=== PATIENT | male | born 1950 | race Caucasian/White ===

== ENCOUNTER 2017-07-15 07:00 | Inpatient (IN) ==
--- NOTE | 2017-07-11 10:20 | Cardiothoracic History & Phys ---
History of Present Illness Chief complaint: Shortness of breath and chest discomfort History of present illness: Mr. Crews is a 67 year old male who is a patient of Dr. Cochran who has been followed with cardiac myopathy manifesting primarily and symptoms of shortness of breath and chest discomfort. Patient underwent cardiac catheterization about 2 weeks ago demonstrating markedly impaired left ventricular function and severe coronary artery disease. Patient was referred for bypass surgery. He is to be admitted for that purpose. Past medical history significant for history of anxiety and insomnia and hypertension. He also has a surgical history of bilateral cataracts and some unspecified throat surgery in the past. His family history is significant in that his father has history of hypertension and coronary disease and mother also with a history of hypertension. Brother has history of hypertension and myocardial infarction in his past. Patient is never smoked. He takes a moderate amount of alcohol. Physical examination patient is well-developed well-nourished white male in no acute distress. Examination of head eyes ears nose and throat show the pupils are equal and react to light and extraocular motions are intact. Examination of the neck shows no masses or thyromegaly or bruits. Examination chest is clear to percussion and auscultation. Examination heart shows regular sinus rhythm and no murmurs. Examination of the abdomen is soft and nontender and there are no masses or organomegaly. Examination of the extremities shows no cyanosis or edema. Neurological examination is grossly within normal limits. Assessment: Severe coronary artery disease and severe cardiomyopathy. Plan: Coronary bypass surgery 07/16/2017. Home Medications Medication Instructions Recorded Confirmed Type Acetaminophen Tab [Tylenol Tab] 325 mg PO BID PRN 07/04/17 07/04/17 History Amitriptyline HCl 50 mg PO BEDTIME 07/04/17 07/04/17 History Aspirin Chew Tab 324 mg PO DAILY #100 tablet 07/04/17 Rx Calcium Carb/Mag Ox/Zinc Sulf 1 tablet PO BID 07/04/17 07/04/17 History [Icdosox-Oxuzskqfe-Kyoh Tablet] Carvedilol [Coreg] 25 mg PO BID 07/04/17 07/04/17 History Cholecalciferol (Vitamin D3) 1 capsule PO BID 07/04/17 07/04/17 History [Vitamin D3] Fluticasone/Vilanterol [Breo 1 puff INH DAILY PRN 07/04/17 07/04/17 History Ellipta 100-25 Mcg INH] Furosemide Tab [Lasix Tab] 40 mg PO DAILY 07/04/17 07/04/17 History Gabapentin Cap/Tab [Neurontin 400 mg PO TID 07/04/17 07/04/17 History Cap/Tab] Garlic 2,000 mg PO BID 07/04/17 07/04/17 History Glucosamine/Chondroitin Sulf A 1 each PO BID 07/04/17 07/04/17 History [Glucosamine-Chondroitin Cap] Leg Cramps 1 caplet PO DIRECTED PRN 07/04/17 07/04/17 History Lutein 40 mg PO DAILY 07/04/17 07/04/17 History Montelukast Tab [Singulair Tab] 10 mg PO DAILY 07/04/17 07/04/17 History [place]-3/Dha/Epa/Fish Oil [Fish Oil 2 each PO BID 07/04/17 07/04/17 History 1,000 mg Softgel] Sacubitril/Valsartan [Entresto 24 0.5 tablet PO BEDTIME 07/04/17 07/04/17 History mg-26 mg Tablet] Saw [place] Fruit [Saw [place]] 2 mg PO BID 07/04/17 07/04/17 History Spironolactone [Aldactone] 12.5 mg PO DAILY 07/04/17 07/04/17 History Tizanidine HCl [Zanaflex] 2 mg PO BEDTIME 07/04/17 07/04/17 History Tramadol HCl [Tramadol Tab] 50 mg PO BID 07/04/17 07/04/17 History Vitamin B Complex 1 capsule PO DAILY 07/04/17 07/04/17 History Zolpidem Tartrate [Ambien] 10 mg PO DAILY 07/04/17 07/04/17 History amLODIPine [Norvasc] 5 mg PO DAILY 07/04/17 07/04/17 History Allergies Allergy/AdvReac Type Severity Reaction Status Date / Time No Known Allergies Allergy Verified 07/04/17 14:00 Medical,Surgical,& Family Hx - Medical History Neurology: No history of: Seizures - Social History Smoking Status: Never smoker
[~2017-07-15 07:00] MED LIST: ACETAMINOPHEN 325 MG TABLET PO PRN; CRAMPS PO PRN; DEXTROSE 50% 25 GM/50 ML VIAL IV PRN; GARLIC 2000 MG PO SCH; GLUCAGON 1 MG VIAL IM PRN; GLUCOSAMINE PO SCH; LUTEIN 40 MG PO SCH; NON-FORMULARY MEDICATION (Fluticasone/Vilanterol [Breo Ellipta 100-25 Mcg Inh] 1 PUFF) INH PRN; SAW PALMETTO FRUIT PO SCH; [UNRECOGNIZED DRUG - OTHER] PO SCH
[2017-07-15 09:47] LABS: Basophils # 0.2 10*3/uL (0.0-0.2); Basophils % 2.3 % (0.0-0.8); Eosinophils # 0.5 10*3/uL (0.0-0.87); Eosinophils % 6.4 % (0.00-10.9); Hematocrit 56.1 VOL% (42.0-52.0); Hemoglobin 19.6 GM/DL (14.0-18.0); Immature Granulocytes % 0.5 %; Immature Granulocytes Absolute 0.04 #; Lymphocytes % 25.2 % (21.2-54.2); Mean Corpuscular HGB Conc 34.9 GM/DL (32-36); Mean Corpuscular Hemoglobin 29 PG (27-34); Mean Corpuscular Volume 82.6 FL (87-102); Mean Platelet Volume 9.7 FL (9.6-12.0); Monocytes # 0.8 10*3/uL (0.11-0.8); Monocytes % 10.5 % (1.7-12.7); Neutrophils # 4.4 10*3/uL (1.4-7.4); Neutrophils % 55.1 % (38.7-73.9); Platelet Count 248 T/CUMM (130-400); Red Blood Count 6.79 MC/CUMM (3.8-5.5); Red Cell Distribution Width 14.1 % (9.3-17.3); White Blood Count 7.9 T/CUMM (4-12)
[2017-07-15 10:19] LABS: Albumin 3.7 G/DL (3.4-5.0); Bilirubin,Total 0.6 MG/DL (0.2-1.0); Calcium 9.5 MG/DL (8.5-10.1); Potassium 4.1 MMOL/L (3.5-5.1); Total Protein 7.3 G/DL (6.4-8.3)
[2017-07-15] MEDS ORDERED: CEFUROXIME INJ 1,500 MG in SODIUM CHLORIDE 0.9% 100 ML IV ONE (10:20)
[2017-07-15 10:31] LABS: ABG HCO3 27.9 MMOL/L (20-26); ABG Oxygen Saturation 95.3 % (95-100); ABG PCO2 42.1 MM HG (35-48); ABG PH 7.441 (7.35-7.45); ABG TCO2 22.9 MMOL/L (23-27); Allen Test Positive; Pt O2 Delivery Device Room Air
[2017-07-15] MEDS: CARVEDILOL 25 MG TABLET PO SCH ×4 (10:33→21:57)
[2017-07-15] MEDS: MULTIVITAMIN (BEROCCA) TABLET PO SCH ×3 (10:33→15:11)
[2017-07-15] MEDS: SPIRONOLACTONE 25 MG TABLET PO SCH ×3 (10:33→15:10)
[2017-07-15] MEDS: FUROSEMIDE 40 MG TABLET PO SCH ×3 (10:33→15:13)
[2017-07-15] MEDS: OMEGA 3 ACID ETHYL ESTERS 1 GM CAPSULE PO SCH ×4 (10:33→21:54)
[2017-07-15] MEDS: ASPIRIN CHEW 81 MG TABLET PO SCH ×3 (10:33→15:11)
[2017-07-15] MEDS: amLODIPine 5 MG TABLET PO SCH ×3 (10:34→15:14)
[2017-07-15] MEDS: MONTELUKAST 10 MG TABLET PO SCH ×3 (10:34→15:15)
[2017-07-15] MEDS: ZALEPLON 5 MG CAPSULE PO SCH ×3 (10:34→15:16)
[2017-07-15] MEDS: GABAPENTIN 400 MG CAPSULE PO SCH ×6 (10:34→21:57)
[2017-07-15] MEDS: traMADol 50 MG TABLET PO SCH ×5 (10:34→21:54)
[2017-07-15] MEDS: CHOLECALCIFEROL 1,000 UNIT TABLET PO SCH ×5 (10:35→21:56)
[2017-07-15] MEDS: CHLORHEXIDINE 0.12% ORAL RINSE 60 ML BOTTLE SWISH/SPIT SCH ×5 (10:40→21:58)
[2017-07-15] MEDS: tiZANidine 4 MG TABLET PO SCH ×3 (10:53→21:57)
[2017-07-15] MEDS: AMITRIPTYLINE 50 MG TABLET PO SCH ×3 (10:53→21:57)
[2017-07-15] MEDS: SACUBITRIL/VALSARTAN 49-51 MG TABLET PO SCH ×3 (10:53→21:54)
--- NOTE | 2017-07-15 11:02 | Order Completion Report ---
See report scanned to EMR
--- NOTE | 2017-07-15 12:20 | XRay Report ---
2 view chest Indication: Chest pain, coronary artery disease Comparison: Not available Findings: Cardiomediastinal contours are normal. Lungs are clear bilaterally. . No acute osseous abnormalities. Visualized upper abdomen demonstrates no acute pathology. Impression: Normal chest PROCEDURE INTERPRETED AT [facility] DEPARTMENT OF RADIOLOGY Final Report Signed by: Blade Clifford MD
[2017-07-15] MEDS: SODIUM CHLORIDE 0.9% 1,000 ML IV SCH ×3 (15:17→21:57)
[2017-07-15] MEDS: CHLORHEXIDINE 4% SOLN 118 ML BOTTLE TOP SCH ×2 (15:19→21:58)
[2017-07-15] MEDS ORDERED: ZOLPIDEM 5 MG TABLET PO PRN (21:12)
[2017-07-16] MEDS ORDERED: LORazepam 1 MG TABLET PO ONE (05:30)
[2017-07-16] MEDS ORDERED: PANTOPRAZOLE 40 MG VIAL IV ONE (05:30)
[2017-07-16] MEDS: CHLORHEXIDINE 0.12% ORAL RINSE 60 ML BOTTLE SWISH/SPIT SCH ×2 (05:37→20:43)
[2017-07-16] MEDS: CHLORHEXIDINE 4% SOLN 118 ML BOTTLE TOP SCH (05:37)
[2017-07-16] MEDS ORDERED: PAPAVERINE 60 MG/2 ML VIAL ONE (05:46)
[2017-07-16] MEDS ORDERED: VANCOMYCIN 1,000 MG VIAL ONE (05:47)
[2017-07-16] MEDS: CARVEDILOL 25 MG TABLET PO SCH (06:04)
[2017-07-16] MEDS: amLODIPine 5 MG TABLET PO SCH (06:04)
[2017-07-16] MEDS ORDERED: TRANEXAMIC ACID 1,000 MG/10 ML VIAL IV ONE (06:05)
[2017-07-16 07:33] LABS: ABG Base Excess 1.2 MMOL/L (-2.5-2.5); ABG HCO3 25.5 MMOL/L (20-26); ABG Oxygen Saturation 99.6 % (95-100); ABG PCO2 43.8 MM HG (35-48); ABG PH 7.392 (7.35-7.45); ABG TCO2 21.7 MMOL/L (23-27); Glucose Heart Surgery 117 MG/DL (74-106); Hematocrit Heart Surgery 55.2 PERCENT (42-52); Hemoglobin Heart Surgery 18.1 G/DL (14.0-18.0); Ionized Calcium Arterial 1.16 MMOL/L (1.21-1.46); PCO2 Patient Temp Arterial 43.8 MMHG; PH Patient Temp Arterial 7.392; Patient Temperature 37 CELCIUS; Potassium Heart/CVR 3.9 MMOL/L (3.5-5.1); Sodium Heart/CVR 137 MMOL/L (135-145)
[2017-07-16] MEDS ORDERED: CALCIUM CHLORIDE 1,000 MG/10 ML SYRINGE IV ONE (07:47)
[2017-07-16] MEDS ORDERED: NITROPRUSSIDE 50 MG/2 ML VIAL ONE (07:47)
[2017-07-16] MEDS ORDERED: PHENYLEPHRINE DRIP 40 MG/250 ML PREMIX IV ONE (07:47)
[2017-07-16] MEDS ORDERED: SODIUM BICARBONATE 50 MEQ/50 ML SYRINGE IV ONE ×2 (07:48→09:51)
[2017-07-16] MEDS ORDERED: ALBUMIN 5% 12.5 GM/250 ML VIAL IV ONE (07:48)
[2017-07-16] MEDS ORDERED: POTASSIUM CHLORIDE RIDER 100 ML IV ONE (07:48)
[2017-07-16 08:16] LABS: Apearance,Urine CLEAR (Clear); Bilirubin,Urine Negative (Negative); Blood, Urine Negative (Negative); Glucose,Urine (UA) Negative (Negative); Ketones,Urine Negative (Negative); Nitrite,Urine Negative (Negative); Protein,Urine Negative; RBC,Urine <1 /HPF (0-4); Urine Color Yellow (Yellow); Urine Urobilinogen < 2.0 EU/DL (0.2-1.0); WBC,Urine 1 /HPF (0-6)
[2017-07-16 08:45] LABS: Hematocrit Heart Surgery 37.2 PERCENT (42-52); Hemoglobin Heart Surgery 12.1 G/DL (14.0-18.0); PCO2 Patient Temp Venous 37.1 MM HG; PH Patient Temp Venous 7.449; PO2 Patient Temp Venous 38.7 MM HG; Potassium Heart/CVR 4.6 MMOL/L (3.5-5.1); VBG Base Excess 1.9 MEQ/L (0-4); VBG HCO3 25.7 MEQ/L (24-28); VBG Oxygen Saturation 82.3 %; VBG PCO2 42.9 MMHG (41-51); VBG PH 7.405; VBG PO2 47.6 MMHG (17-40)
[2017-07-16] MEDS ORDERED: SUFentanil 250 MCG/5 ML AMP ONE (08:58)
[2017-07-16] MEDS ORDERED: CALCIUM CHLORIDE 1,000 MG/10 ML VIAL IV ONE (08:58)
[2017-07-16] MEDS ORDERED: DOBUTamine 500 MG/250 ML PREMIX IV ONE ×2 (08:58→10:19)
[2017-07-16] MEDS ORDERED: HEPARIN/NACL 0.9% 2 UNITS/ML 500 ML IV ONE (08:58)
[2017-07-16] MEDS ORDERED: PHENYLEPHRINE DRIP 20 MG/250 ML PREMIX IV ONE ×2 (08:58→09:51)
[2017-07-16] MEDS ORDERED: SODIUM CHLORIDE 0.9% 1,000 ML IV ONE (08:59)
[2017-07-16] MEDS ORDERED: MIDAZOLAM 10 MG/2 ML VIAL ONE ×2 (08:59→10:52)
[2017-07-16] MEDS ORDERED: NITROGLYCERIN DRIP 50 MG/250 ML BOTTLE IV ONE (08:59)
[2017-07-16] MEDS ORDERED: SODIUM CHLORIDE 0.9% 250 ML IV ONE (08:59)
[2017-07-16] MEDS ORDERED: ePHEDrine 50 MG/ML AMP ONE (08:59)
[2017-07-16] MEDS ORDERED: SODIUM CHLORIDE 0.9% 100 ML IV ONE (08:59)
[2017-07-16] MEDS ORDERED: ETOMIDATE 20 MG/10 ML VIAL IV ONE (08:59)
[2017-07-16] MEDS ORDERED: LACTATED RINGERS 1,000 ML IV ONE (08:59)
[2017-07-16] MEDS ORDERED: VECURONIUM 10 MG VIAL IV ONE (09:00)
[2017-07-16 09:16] LABS: Hematocrit Heart Surgery 40.8 PERCENT (42-52); Hemoglobin Heart Surgery 13.3 G/DL (14.0-18.0); PCO2 Patient Temp Venous 38.7 MM HG; PH Patient Temp Venous 7.445; PO2 Patient Temp Venous 45.8 MM HG; Potassium Heart/CVR 4.4 MMOL/L (3.5-5.1); VBG Base Excess 2.5 MEQ/L (0-4); VBG HCO3 26.3 MEQ/L (24-28); VBG Oxygen Saturation 86.3 %; VBG PCO2 42.6 MMHG (41-51); VBG PH 7.416; VBG PO2 52.5 MMHG (17-40)
[2017-07-16] MEDS ORDERED: ALBUMIN 25% 25 GM/100 ML VIAL IV ONE (09:51)
[2017-07-16] MEDS ORDERED: DEXTROSE 5% KCL 20 MEQ 20 MEQ/1,000 ML BAG IV ONE (09:51)
[2017-07-16] MEDS ORDERED: PROTAMINE SULFATE 250 MG/25 ML VIAL IV ONE (09:51)
[2017-07-16] MEDS ORDERED: MAGNESIUM SULFATE 1 GM/2 ML VIAL ONE (09:51)
[2017-07-16] MEDS ORDERED: HEPARIN 10,000 UNIT/10 ML VIAL ONE (09:52)
[2017-07-16] MEDS ORDERED: MANNITOL 12.5 GM/50 ML VIAL IV ONE (09:52)
[2017-07-16] MEDS ORDERED: FUROSEMIDE 20 MG/2 ML VIAL ONE (09:52)
[2017-07-16] MEDS ORDERED: methylPREDNISolone SOD SUC 1,000 MG/8 ML VIAL ONE (09:52)
[2017-07-16 10:05] LABS: ABG Base Excess 0.6 MMOL/L (-2.5-2.5); ABG HCO3 24.9 MMOL/L (20-26); ABG Oxygen Saturation 99.3 % (95-100); ABG PCO2 38.7 MM HG (35-48); ABG PH 7.417 (7.35-7.45); ABG TCO2 21.4 MMOL/L (23-27); Glucose Heart Surgery 196 MG/DL (74-106); Hematocrit Heart Surgery 42.6 PERCENT (42-52); Hemoglobin Heart Surgery 13.9 G/DL (14.0-18.0); Ionized Calcium Arterial 1.18 MMOL/L (1.21-1.46); PCO2 Patient Temp Arterial 38.7 MMHG; PH Patient Temp Arterial 7.417; Patient Temperature 37 CELCIUS; Potassium Heart/CVR 3.7 MMOL/L (3.5-5.1); Sodium Heart/CVR 134 MMOL/L (135-145)
--- NOTE | 2017-07-16 10:49 | Operative Note ---
Date of procedure: 07/16/17 Pre-op diagnosis: Coronary artery disease Post-op diagnosis: same Procedure: Procedure: Coronary bypass grafting 2 the left internal mammary graft to the anterior descending coronary artery and saphenous vein graft to the obtuse marginal coronary artery. Findings: Patient is a 67-year-old man presented with shortness of breath and chest discomfort. The catheterization demonstrating critical coronary disease with marked left ventricular dysfunction. The time of surgery there was noted to be left ventricular dysfunction as previously noted and grafts were placed to the anterior descending coronary artery using the left internal mammary artery and a saphenous vein graft was placed to the obtuse marginal coronary artery. Both vessels were of adequate size and free of disease at the site of anastomosis. Patient tolerated procedure well and was returned to recovery in satisfactory condition. The patient was brought to the operating room placed on the operating table in supine position. After satisfactory induction of general anesthesia the chest abdomen and legs were prepped and draped in sterile fashion. Greater saphenous vein was harvested from the left lower leg and prepared as an arterial graft. Incision in the leg was closed with 3-0 subcutaneous Monocryl and skin brian. Standard sternotomy incision was made and the sternum was divided and the heart suspended in a pericardial cradle. Left internal mammary artery was dissected free and prepared as an arterial graft. Patient was prepared for cardiopulmonary bypass with systemic heparinization cannulation of the ascending aorta and right atrium. Cardiopulmonary bypass was begun and the aorta was crossclamped and the heart arrested with cardioplegia solution injected into the aortic root. Heart was protected during the period of crossclamping with topical saline slush. Distal anastomoses were constructed as noted above and then the aorta was unclamped reestablishing cardiac action. Proximal anastomosis was constructed between the inflow end of the saphenous vein graft and the ascending aorta. Following this the patient was weaned from cardiopulmonary bypass without difficulty and heparin effect reversed with protamine. Operative field was inspected for hemostasis after decannulation. The defects in the ascending aorta and right atrium closed with 3-0 Prolene. Once hemostasis was considered adequate the incision was closed with interrupted stainless steel wire and the sternum and 0 Monocryl in the presternal fascia. Skin was closed with 3-0 subcuticular Monocryl. 2 chest tubes were left in the anterior mediastinum and brought out through separate stab incisions. Sterile dressings were applied the patient was returned to recovery in satisfactory condition. Anesthesia: GETA Surgeon / Physician: Claudy Lugo Estimated blood loss: other (Unable to determine because of cardiopulmonary bypass) Condition: stable Disposition: ICU Results - Labs CBC & BMP: 07/16/17 10:01 07/15/17 09:31 Discharge Plan - Discharge Medications No Action Zolpidem Tartrate [Ambien] 10 mg PO BEDTIME Tizanidine HCl [Zanaflex] 2 mg PO BEDTIME Spironolactone [Aldactone] 12.5 mg PO DAILY Taylor-3/Dha/Epa/Fish Oil [Fish Oil 1,000 mg Softgel] 2 each PO BID Montelukast Tab [Singulair Tab] 10 mg PO DAILY Lutein 40 mg PO DAILY Garlic 2,000 mg PO BID Gabapentin Cap/Tab [Neurontin Cap/Tab] 400 mg PO TID Fluticasone/Vilanterol [Breo Ellipta 100-25 Mcg INH] 1 puff INH DAILY PRN PRN Reason: Congestion Carvedilol [Coreg] 50 mg PO BID Vitamin B Complex 1 capsule PO DAILY Cholecalciferol (Vitamin D3) [Vitamin D3] 1 capsule PO BID Calcium Carb/Mag Ox/Zinc Sulf [Uabeaqh-Gfegoglyw-Omqk Tablet] 1 tablet PO BID amLODIPine [Norvasc] 5 mg PO DAILY Sacubitril/Valsartan [Entresto 24 mg-26 mg Tablet] 0.5 tablet PO BEDTIME Leg Cramps 1 caplet PO DIRECTED PRN PRN Reason: Leg Cramps Acetaminophen Tab [Tylenol Tab] 325 mg PO BID PRN PRN Reason: Pain Tramadol HCl [Tramadol Tab] 50 mg PO BID Saw [place] Fruit [Saw [place]] 2 mg PO BID Glucosamine/Chondroitin Sulf A [Glucosamine-Chondroitin Cap] 1 each PO BID Furosemide Tab [Lasix Tab] 40 mg PO DAILY Amitriptyline HCl 50 mg PO BEDTIME Aspirin/Calcium Carbonate/Mag [Aspirin Buffered 325 mg Tab] 325 mg PO DAILY - Follow Up or Referral - Forms/Instructions
[2017-07-16] MEDS ORDERED: PROTAMINE SULFATE 50 MG/5 ML VIAL IV ONE ×2 (10:50→10:57)
[2017-07-16] MEDS ORDERED: NITROPRUSSIDE 100 MG in DEXTROSE 5% 250 ML IV PRN (11:00)
[2017-07-16] MEDS ORDERED: ONDANSETRON 4 MG/2 ML VIAL IV PRN (11:00)
[2017-07-16] MEDS ORDERED: MAGNESIUM SULF RIDER 2 GM in PREMIX 1 EACH IV PRN (11:00)
[2017-07-16] MEDS ORDERED: MAGNESIUM SULF RIDER 4 GM in PREMIX 1 EACH IV PRN (11:00)
[2017-07-16] MEDS ORDERED: LACTATED RINGERS 250 ML IV PRN (11:00)
[2017-07-16] MEDS ORDERED: CALCIUM CHLORIDE 1,000 MG/10 ML SYRINGE IV PRN (11:00)
[2017-07-16] MEDS ORDERED: MORPHINE 10 MG/1 ML VIAL IV PRN (11:00)
[2017-07-16] MEDS ORDERED: ACETAMINOPHEN 650 MG SUPP RECTAL PRN (11:00)
[2017-07-16] MEDS ORDERED: INSULIN REGULAR 100 UNIT/ML IV PRN (11:00)
[2017-07-16] MEDS ORDERED: DEXTROSE 50% 25 GM/50 ML VIAL IV PRN ×2 (11:00)
[2017-07-16] MEDS ORDERED: INSULIN REGULAR DRIP 100 ML IV SCH (11:00)
[2017-07-16] MEDS ORDERED: MIDAZOLAM 2 MG/2 ML VIAL IV PRN (11:00)
[2017-07-16] MEDS ORDERED: VECURONIUM 10 MG VIAL IV PRN ×2 (11:00)
[2017-07-16] MEDS ORDERED: INSULIN REGULAR 100 UNIT/ML IV ONE ×2 (11:00→11:30)
[2017-07-16] MEDS ORDERED: MIDAZOLAM 10 MG/2 ML VIAL IV PRN (11:00)
[2017-07-16 11:14] LABS: Basophils # 0.1 10*3/uL (0.0-0.2); Basophils % 0.9 % (0.0-0.8); Eosinophils # 0.3 10*3/uL (0.0-0.87); Eosinophils % 2.7 % (0.00-10.9); Hematocrit 37.2 VOL% (42.0-52.0); Immature Granulocytes % 0.7 %; Immature Granulocytes Absolute 0.09 #; Lymphocytes # 2.1 10*3/uL (1.4-4.0); Lymphocytes % 17.1 % (21.2-54.2); Mean Corpuscular HGB Conc 34.9 GM/DL (32-36); Mean Corpuscular Hemoglobin 29 PG (27-34); Mean Corpuscular Volume 84.2 FL (87-102); Mean Platelet Volume 9.4 FL (9.6-12.0); Monocytes # 1.1 10*3/uL (0.11-0.8); Monocytes % 8.9 % (1.7-12.7); Neutrophils # 8.5 10*3/uL (1.4-7.4); Neutrophils % 69.7 % (38.7-73.9); Platelet Count 113 T/CUMM (130-400); Red Blood Count 4.42 MC/CUMM (3.8-5.5); Red Cell Distribution Width 13.1 % (9.3-17.3); White Blood Count 12.2 T/CUMM (4-12)
[2017-07-16 11:15] LABS: ABG Base Excess -0.5 MMOL/L (-2.5-2.5); ABG Oxygen Saturation 97.5 % (95-100); ABG PCO2 42.7 MM HG (35-48); ABG PH 7.373 (7.35-7.45); ABG TCO2 21.8 MMOL/L (23-27); Glucose Heart Surgery 145 MG/DL (74-106); Hematocrit Heart Surgery 39.5 PERCENT (42-52); Hemoglobin Heart Surgery 12.8 G/DL (14.0-18.0); Potassium Heart/CVR 3.7 MMOL/L (3.5-5.1)
[2017-07-16 11:23] LABS: INR 1.8; PT Patient Result 18.7 SECS; Partial Thromboplastin Time 33.4 SECS (0-40)
[2017-07-16 11:52] LABS: Albumin 2.7 G/DL (3.4-5.0); Bilirubin,Total 1.2 MG/DL (0.2-1.0); Calcium 8.4 MG/DL (8.5-10.1); Magnesium 2.2 MG/DL (1.8-2.4); Potassium 3.9 MMOL/L (3.5-5.1); Total Protein 4.4 G/DL (6.4-8.3)
[2017-07-16] MEDS: SODIUM CHLORIDE 0.45% 1,000 ML IV SCH ×2 (11:52)
[2017-07-16] MEDS: ALBUMIN 5% 12.5 GM in PREMIX 1 EACH IV PRN ×7 (11:53→18:49)
[2017-07-16] MEDS: LACTATED RINGERS 1,000 ML IV PRN ×5 (11:55→16:24)
[2017-07-16] MEDS: POTASSIUM CHLORIDE RIDER 20 MEQ in PREMIX 1 EACH IV PRN ×5 (11:57→16:44)
[2017-07-16] MEDS: POTASSIUM CHLORIDE RIDER 10 MEQ in PREMIX 1 EACH IV PRN ×2 (12:01→17:58)
--- NOTE | 2017-07-16 12:01 | XRay Report ---
Portable chest Date: 07/16/2017 Clinical history: Line placement Comparison: 07/15/2017 Technique: Portable AP sitting chest Findings: The heart is slightly larger in size with interval median sternotomy. Progressive diffuse perihilar parenchymal findings with persistent relative elevation of the right hemidiaphragm. The endotracheal tube, nasogastric tube and mediastinal chest tubes are in satisfactory position. Right IJ CVP line with tip in right atrium. Right subclavian Gwinner-Geraldine catheter with tip in right pulmonary artery overlying the right hilum. Impression: Interval median sternotomy with the supportive devices in satisfactory position. Progressive perihilar atelectasis/edema with no pneumothorax on this supine film. Persistent relative elevation of the right hemidiaphragm. PROCEDURE INTERPRETED AT [facility] DEPARTMENT OF RADIOLOGY Final Report Signed by: Dr. Minnie Lindsay
[2017-07-16] MEDS: PHENYLEPHRINE DRIP 40 MG/250 ML PREMIX IV PRN ×2 (12:05→19:28)
[2017-07-16 12:07] LABS: CKMB % 8.8 %
[2017-07-16 12:09] LABS: Troponin I Only 2.64 NG/ML (0.00-0.045)
[2017-07-16] MEDS: KETOROLAC 30 MG/1 ML VIAL IV SCH ×3 (12:14→23:15)
[2017-07-16 12:41] LABS: ABG Base Excess 1.2 MMOL/L (-2.5-2.5); ABG HCO3 25.4 MMOL/L (20-26); ABG PCO2 43.1 MM HG (35-48); ABG PH 7.394 (7.35-7.45); ABG PO2 92.4 MM HG (80-95); ABG TCO2 22.7 MMOL/L (23-27); Glucose Heart Surgery 135 MG/DL (74-106); Hematocrit Heart Surgery 43.1 PERCENT (42-52)
[2017-07-16 13:49] LABS: ABG Base Excess 1.8 MMOL/L (-2.5-2.5); ABG HCO3 25.9 MMOL/L (20-26); ABG PCO2 42.9 MM HG (35-48); ABG PH 7.404 (7.35-7.45); ABG PO2 82.1 MM HG (80-95); Glucose Heart Surgery 150 MG/DL (74-106); Hematocrit Heart Surgery 44.4 PERCENT (42-52); Hemoglobin Heart Surgery 14.5 G/DL (14.0-18.0); Potassium Heart/CVR 4.2 MMOL/L (3.5-5.1)
[2017-07-16 15:01] LABS: ABG Base Excess 1.2 MMOL/L (-2.5-2.5); ABG HCO3 25.5 MMOL/L (20-26); ABG Oxygen Saturation 96.8 % (95-100); ABG PCO2 43.6 MM HG (35-48); ABG PH 7.392 (7.35-7.45); ABG PO2 88.4 MM HG (80-95); Glucose Heart Surgery 157 MG/DL (74-106); Hematocrit Heart Surgery 42.4 PERCENT (42-52); Hemoglobin Heart Surgery 13.8 G/DL (14.0-18.0)
[2017-07-16] MEDS ORDERED: AMIODARONE INJ 450 MG in DEXTROSE 5% 241 ML IV SCH ×2 (15:30→23:30)
[2017-07-16 16:31] LABS: ABG Base Excess -0.2 MMOL/L (-2.5-2.5); ABG HCO3 24.3 MMOL/L (20-26); ABG Oxygen Saturation 96.5 % (95-100); ABG PCO2 46.8 MM HG (35-48); ABG PH 7.352 (7.35-7.45); ABG PO2 91.7 MM HG (80-95); ABG TCO2 22.8 MMOL/L (23-27); Glucose Heart Surgery 162 MG/DL (74-106)
[2017-07-16 17:41] LABS: ABG Base Excess -0.3 MMOL/L (-2.5-2.5); ABG HCO3 24.1 MMOL/L (20-26); ABG Oxygen Saturation 95.5 % (95-100); ABG PH 7.315 (7.35-7.45); ABG PO2 86.2 MM HG (80-95); ABG TCO2 23.6 MMOL/L (23-27); Glucose Heart Surgery 171 MG/DL (74-106); Hematocrit Heart Surgery 42.8 PERCENT (42-52); Hemoglobin Heart Surgery 13.9 G/DL (14.0-18.0); Potassium Heart/CVR 4.6 MMOL/L (3.5-5.1)
[2017-07-16] MEDS: CEFUROXIME INJ 1,500 MG in SODIUM CHLORIDE 0.9% 100 ML IV SCH (18:22)
[2017-07-16] MEDS: DOBUTamine 500 MG/250 ML PREMIX IV SCH (18:23)
[2017-07-16 18:39] LABS: ABG Base Excess -0.9 MMOL/L (-2.5-2.5); ABG HCO3 26.2 MMOL/L (20-26); ABG Oxygen Saturation 95.2 % (95-100); ABG PCO2 53.2 MM HG (35-48); ABG PO2 85.5 MM HG (80-95); ABG TCO2 27.8 MMOL/L (23-27); Glucose Heart Surgery 172 MG/DL (74-106); Hemoglobin Heart Surgery 14.4 G/DL (14.0-18.0); Potassium Heart/CVR 4.9 MMOL/L (3.5-5.1)
[2017-07-16] MEDS: MORPHINE 2 MG/1 ML SYRINGE IV PRN (18:48)
[2017-07-16] MEDS: INSULIN REGULAR 100 UNIT/ML SUBCUT SCH ×2 (19:28→23:15)
[2017-07-16 19:42] LABS: ABG Base Excess -0.6 MMOL/L (-2.5-2.5); ABG HCO3 23.9 MMOL/L (20-26); ABG Oxygen Saturation 98.5 % (95-100); ABG PCO2 42.5 MM HG (35-48); ABG PH 7.372 (7.35-7.45); ABG TCO2 21.8 MMOL/L (23-27); Glucose Heart Surgery 186 MG/DL (74-106); Hematocrit Heart Surgery 38.2 PERCENT (42-52); Hemoglobin Heart Surgery 12.4 G/DL (14.0-18.0); Potassium Heart/CVR 4.2 MMOL/L (3.5-5.1)
[2017-07-16] MEDS ORDERED: FUROSEMIDE 40 MG/4 ML VIAL IV PRN (19:45)
[2017-07-16 20:19] LABS: Troponin I Only 5.28 NG/ML (0.00-0.045)
--- NOTE | 2017-07-16 21:30 | Cardiology Consult Note ---
Assessment and Plan - Time spent with patient Time spent with patient: Greater than 30 minutes (1) Status post coronary artery bypass grafting Status: Acute Assessment and plan: Agree with the dobutamine to support his blood pressure, given his LV systolic dysfunction Agree with amiodarone to help with the ventricular arrhythmias. With his severe LV dysfunction, he will certainly be more prone to ventricular or atrial arrhythmias EKG in a.m. Serial cardiac isoenzymes Once the is able to take p.o. and his blood pressure better will restart him on lower dose of his cardiomyopathy medications I will follow along with you. I discussed the current status with his . Thank you for allowing me to participate in this patient's care Current Visit: Yes (2) 3-vessel coronary artery disease Status: Acute Current Visit: Yes (3) Alcohol use disorder, mild, in sustained remission Status: Acute Current Visit: Yes (4) CAD (coronary artery disease) Status: Acute Current Visit: No (5) Cardiomyopathy Status: Acute Current Visit: No History of Present Illness - Data of Consult Patient: known to practice within the last 3 years Consult date: 07/16/17 Requesting Physician: Claudy Lugo Primary care physician: Mauro Buchanan - Consult Narrative Reason for consult: Evaluate cardiac status after coronary bypass grafting History of present illness: Mr. Crews is a 67 year old male PCP: Dr. John Buchanan Transportation Sales Consultant: Dr. Endy Cochran 6 7-year-old man. He has had progressive dyspnea on exertion. He was noted to have a cardiomyopathy. Cath revealed significant three-vessel disease. He is to undergo bypass grafting. He underwent it today. I saw him postop. Currently, he is on ventilator and cannot give me a review of systems. Remote history of alcohol use Cardiomyopathy, LVEF 15-20% Hypertension Home meds: See list-has been on Entresto, Spironolactone furosemide, Coreg CC: Claudy Lugo MD - Home Medications and Allergies Home Medications: Home Medications Medication Instructions Recorded Confirmed Type Acetaminophen Tab [Tylenol Tab] 325 mg PO BID PRN 07/04/17 07/15/17 History Amitriptyline HCl 50 mg PO BEDTIME 07/04/17 07/15/17 History Calcium Carb/Mag Ox/Zinc Sulf 1 tablet PO BID 07/04/17 07/15/17 History [Xqoyfjr-Gfquvrqcn-Bjzj Tablet] Carvedilol [Coreg] 50 mg PO BID 07/04/17 07/15/17 History Cholecalciferol (Vitamin D3) 1 capsule PO BID 07/04/17 07/15/17 History [Vitamin D3] Fluticasone/Vilanterol [Breo 1 puff INH DAILY PRN 07/04/17 07/15/17 History Ellipta 100-25 Mcg INH] Furosemide Tab [Lasix Tab] 40 mg PO DAILY 07/04/17 07/15/17 History Gabapentin Cap/Tab [Neurontin 400 mg PO TID 07/04/17 07/15/17 History Cap/Tab] Garlic 2,000 mg PO BID 07/04/17 07/15/17 History Glucosamine/Chondroitin Sulf A 1 each PO BID 07/04/17 07/15/17 History [Glucosamine-Chondroitin Cap] Leg Cramps 1 caplet PO DIRECTED PRN 07/04/17 07/15/17 History Lutein 40 mg PO DAILY 07/04/17 07/15/17 History Montelukast Tab [Singulair Tab] 10 mg PO DAILY 07/04/17 07/15/17 History [place]-3/Dha/Epa/Fish Oil [Fish Oil 2 each PO BID 07/04/17 07/15/17 History 1,000 mg Softgel] Sacubitril/Valsartan [Entresto 24 0.5 tablet PO BEDTIME 07/04/17 07/15/17 History mg-26 mg Tablet] Saw Moffit Fruit [Saw Moffit] 2 mg PO BID 07/04/17 07/15/17 History Spironolactone [Aldactone] 12.5 mg PO DAILY 07/04/17 07/15/17 History Tizanidine HCl [Zanaflex] 2 mg PO BEDTIME 07/04/17 07/15/17 History Tramadol HCl [Tramadol Tab] 50 mg PO BID 07/04/17 07/15/17 History Vitamin B Complex 1 capsule PO DAILY 07/04/17 07/15/17 History Zolpidem Tartrate [Ambien] 10 mg PO BEDTIME 07/04/17 07/15/17 History amLODIPine [Norvasc] 5 mg PO DAILY 07/04/17 07/15/17 History Aspirin/Calcium Carbonate/Mag 325 mg PO DAILY 07/15/17 07/15/17 History [Aspirin Buffered 325 mg Tab] Allergies/Adverse Reactions: Allergies Allergy/AdvReac Type Severity Reaction Status Date / Time No Known Allergies Allergy Verified 07/04/17 14:00 ROS unobtainable: due to endotracheal tube Medical,Surgical,& Family Hx - Medical History Cardio: History of: CHF, Hypertension No history of: MS Psychological: History of: Depression Neurology: No history of: Seizures HEENT: History of: Eye Problem Respiratory: History of: Bronchitis, COPD, Pneumonia Genitourinary: History of: Prostate Problems Musculoskeletal: History of: Musculoskeletal Problems (arthritis) - Surgical History Cardiac Surgeries: Sugical HX of: Cardiac Catheterization (1 week ago on sunday) Neurologic Surgeries: Patient denies: Neurologic Surgery HEENT Surgeries: Surgical HX of: Eye Surgery (cateract) Comment Only: 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) Reproductive Surgeries: Patient denies;: Genitourinary Surgery - Family History Family History: Reports;: Family Heart Disease, Family Hypertension (mother, brother, son, daughter) - Social History Smoking Status: Never smoker Marital Status: Lives With:: Spouse Functional capacity: independent ambulation Physical Examination Vital Signs Temp Pulse Resp BP Pulse Ox 97.5 F L 88 20 115/72 93 L 07/15/17 09:20 07/15/17 09:20 07/15/17 09:20 07/15/17 09:20 07/15/17 09:20 Exam: HEENT: Pupils equal, reactive to light and accommodation Neck: NoJVD or bruit Lungs clear to auscultation Heart: Regular rhythm rate with normal S1 and S2. Apical S4 Abdomen: No hepatosplenomegaly Spine/extremities: No clubbing, cyanosis, or edema Neuro: Nonfocal Psych: No depression or anxiety Result/EKG - Labs CBC & BMP: 07/16/17 11:04 07/16/17 11:04 Labs: Laboratory Results - last 24 hr 07/15/17 07/16/17 07/16/17 09:31 07:00 07:30 WBC RBC Hgb Hct MCV MCH MCHC RDW Plt Count MPV Neut % (Auto) Lymph % (Auto) [place] % (Auto) Eos % (Auto) Baso % (Auto) Neut # (Auto) Lymph # (Auto) [place] # (Auto) Eos # (Auto) Baso # (Auto) Immature Gran % Nucleated RBC % Immature Gran # Nucleated RBCs # Immature Plt Fraction INR PT Patient/Control Mix Circ Anticoag PTT Patient Temperature 37 ABG pH 7.392 ABG pH at Pt Temp 7.392 ABG pCO2 43.8 ABG pCO2 at Pt Temp 43.8 ABG pO2 255.0 H ABG pO2 at Pt Temp 255.0 ABG HCO3 25.5 ABG Total CO2 21.7 L ABG O2 Saturation 99.6 ABG Base Excess 1.2 ABG Sodium 137 VBG pH VBG pCO2 VBG pO2 VBG HCO3 VBG Total CO2 VBG O2 Saturation VBG Base Excess Hemoglobin 18.1 H Hematocrit 55.2 H Potassium 3.9 Glucose 117 H Ionized Calcium 1.16 L FiO2 Sodium Chloride Carbon Dioxide Anion Gap BUN Creatinine GFR Calculation BUN/Creatinine Ratio Calculated Osmolality Calcium Venous Ioniz Calcium Magnesium Total Bilirubin AST ALT Alkaline Phosphatase Total Creatine Kinase CK-MB (CK-2) CK and CKMB Interp Troponin I Total Protein Albumin Globulin Albumin/Globulin Ratio Urine Color Yellow Urine Appearance Clear Urine pH 7.0 Ur Specific [place] 1.010 Urine Protein Negative Urine Glucose (UA) Negative Urine Ketones Negative Urine Blood Negative Urine Nitrate Negative Urine Bilirubin Negative Urine Urobilinogen < 2.0 H Urine Leukocytes Negative Urine RBC <1 Urine WBC 1 Ur Culture Indicated? Not indicated Blood Type A POSITIVE Antibody Screen Negative Crossmatch See Detail 07/16/17 07/16/17 07/16/17 07:41 08:40 09:10 WBC RBC Hgb Hct MCV MCH MCHC RDW Plt Count 188 D MPV Neut % (Auto) Lymph % (Auto) [place] % (Auto) Eos % (Auto) Baso % (Auto) Neut # (Auto) Lymph # (Auto) [place] # (Auto) Eos # (Auto) Baso # (Auto) Immature Gran % Nucleated RBC % Immature Gran # Nucleated RBCs # Immature Plt Fraction INR PT Patient/Control Mix Circ Anticoag PTT Patient Temperature 34 35 ABG pH ABG pH at Pt Temp 7.449 7.445 ABG pCO2 ABG pCO2 at Pt Temp 37.1 38.7 ABG pO2 ABG pO2 at Pt Temp 38.7 45.8 ABG HCO3 ABG Total CO2 ABG O2 Saturation ABG Base Excess ABG Sodium 127 L 130 L VBG pH 7.405 7.416 VBG pCO2 42.9 42.6 VBG pO2 47.6 H 52.5 H VBG HCO3 25.7 26.3 VBG Total CO2 23.9 23.9 VBG O2 Saturation 82.3 86.3 VBG Base Excess 1.9 2.5 Hemoglobin 12.1 L D 13.3 L Hematocrit 37.2 L 40.8 L Potassium 4.6 4.4 Glucose 350 H 246 H Ionized Calcium FiO2 80.00 80.00 Sodium Chloride Carbon Dioxide Anion Gap BUN Creatinine GFR Calculation BUN/Creatinine Ratio Calculated Osmolality Calcium Venous Ioniz Calcium 0.91 L 0.97 L Magnesium Total Bilirubin AST ALT Alkaline Phosphatase Total Creatine Kinase CK-MB (CK-2) CK and CKMB Interp Troponin I Total Protein Albumin Globulin Albumin/Globulin Ratio Urine Color Urine Appearance Urine pH Ur Specific [place] Urine Protein Urine Glucose (UA) Urine Ketones Urine Blood Urine Nitrate Urine Bilirubin Urine Urobilinogen Urine Leukocytes Urine RBC Urine WBC Ur Culture Indicated? Blood Type Antibody Screen Crossmatch 07/16/17 07/16/17 07/16/17 10:01 10:01 11:04 WBC 12.2 H D RBC 4.42 D Hgb 13.0 L D Hct 37.2 L MCV 84.2 L MCH 29 MCHC 34.9 RDW 13.1 Plt Count 122 L D 113 L MPV 9.4 L Neut % (Auto) 69.7 Lymph % (Auto) 17.1 L [place] % (Auto) 8.9 Eos % (Auto) 2.7 Baso % (Auto) 0.9 H Neut # (Auto) 8.5 H Lymph # (Auto) 2.1 [place] # (Auto) 1.1 H Eos # (Auto) 0.3 Baso # (Auto) 0.1 Immature Gran % 0.7 Nucleated RBC % 0.0 Immature Gran # 0.09 Nucleated RBCs # 0.00 Immature Plt Fraction 0.0 INR PT Patient/Control Mix Circ Anticoag PTT Patient Temperature 37 ABG pH 7.417 ABG pH at Pt Temp 7.417 ABG pCO2 38.7 ABG pCO2 at Pt Temp 38.7 ABG pO2 191.0 H ABG pO2 at Pt Temp 191.0 ABG HCO3 24.9 ABG Total CO2 21.4 L ABG O2 Saturation 99.3 ABG Base Excess 0.6 ABG Sodium 134 L VBG pH VBG pCO2 VBG pO2 VBG HCO3 VBG Total CO2 VBG O2 Saturation VBG Base Excess Hemoglobin 13.9 L Hematocrit 42.6 Potassium 3.7 Glucose 196 H Ionized Calcium 1.18 L FiO2 Sodium Chloride Carbon Dioxide Anion Gap BUN Creatinine GFR Calculation BUN/Creatinine Ratio Calculated Osmolality Calcium Venous Ioniz Calcium Magnesium Total Bilirubin AST ALT Alkaline Phosphatase Total Creatine Kinase CK-MB (CK-2) CK and CKMB Interp Troponin I Total Protein Albumin Globulin Albumin/Globulin Ratio Urine Color Urine Appearance Urine pH Ur Specific [place] Urine Protein Urine Glucose (UA) Urine Ketones Urine Blood Urine Nitrate Urine Bilirubin Urine Urobilinogen Urine Leukocytes Urine RBC Urine WBC Ur Culture Indicated? Blood Type Antibody Screen Crossmatch 07/16/17 07/16/17 07/16/17 11:04 11:04 11:04 WBC RBC Hgb Hct MCV MCH MCHC RDW Plt Count MPV Neut % (Auto) Lymph % (Auto) [place] % (Auto) Eos % (Auto) Baso % (Auto) Neut # (Auto) Lymph # (Auto) [place] # (Auto) Eos # (Auto) Baso # (Auto) Immature Gran % Nucleated RBC % Immature Gran # Nucleated RBCs # Immature Plt Fraction INR 1.8 PT Patient/Control Mix 18.7 Circ Anticoag PTT 33.4 Patient Temperature ABG pH 7.373 ABG pH at Pt Temp ABG pCO2 42.7 ABG pCO2 at Pt Temp ABG pO2 101.0 H ABG pO2 at Pt Temp ABG HCO3 24.0 ABG Total CO2 21.8 L ABG O2 Saturation 97.5 ABG Base Excess -0.5 ABG Sodium VBG pH VBG pCO2 VBG pO2 VBG HCO3 VBG Total CO2 VBG O2 Saturation VBG Base Excess Hemoglobin 12.8 L Hematocrit 39.5 L Potassium 3.9 3.7 Glucose 142 H 145 H Ionized Calcium FiO2 Sodium 143 Chloride 110 H Carbon Dioxide 25 Anion Gap 11.9 BUN 18 Creatinine 1.00 GFR Calculation 88 BUN/Creatinine Ratio 18.00 Calculated Osmolality 288.0 Calcium 8.4 L Venous Ioniz Calcium Magnesium 2.2 Total Bilirubin 1.20 H AST 26 ALT 24 Alkaline Phosphatase 36 L Total Creatine Kinase CK-MB (CK-2) CK and CKMB Interp Troponin I Total Protein 4.4 L Albumin 2.7 L Globulin 1.7 L Albumin/Globulin Ratio 1.5 Urine Color Urine Appearance Urine pH Ur Specific [place] Urine Protein Urine Glucose (UA) Urine Ketones Urine Blood Urine Nitrate Urine Bilirubin Urine Urobilinogen Urine Leukocytes Urine RBC Urine WBC Ur Culture Indicated? Blood Type Antibody Screen Crossmatch 07/16/17 07/16/17 07/16/17 11:04 12:34 13:42 WBC RBC Hgb Hct MCV MCH MCHC RDW Plt Count MPV Neut % (Auto) Lymph % (Auto) [place] % (Auto) Eos % (Auto) Baso % (Auto) Neut # (Auto) Lymph # (Auto) [place] # (Auto) Eos # (Auto) Baso # (Auto) Immature Gran % Nucleated RBC % Immature Gran # Nucleated RBCs # Immature Plt Fraction INR PT Patient/Control Mix Circ Anticoag PTT Patient Temperature ABG pH 7.394 7.404 ABG pH at Pt Temp ABG pCO2 43.1 42.9 ABG pCO2 at Pt Temp ABG pO2 92.4 82.1 ABG pO2 at Pt Temp ABG HCO3 25.4 25.9 ABG Total CO2 22.7 L 23.0 ABG O2 Saturation 97.0 96.0 ABG Base Excess 1.2 1.8 ABG Sodium VBG pH VBG pCO2 VBG pO2 VBG HCO3 VBG Total CO2 VBG O2 Saturation VBG Base Excess Hemoglobin 14.0 14.5 Hematocrit 43.1 44.4 Potassium 4.0 4.2 Glucose 135 H 150 H Ionized Calcium FiO2 Sodium Chloride Carbon Dioxide Anion Gap BUN Creatinine GFR Calculation BUN/Creatinine Ratio Calculated Osmolality Calcium Venous Ioniz Calcium Magnesium Total Bilirubin AST ALT Alkaline Phosphatase Total Creatine Kinase 157 CK-MB (CK-2) 13.8 H CK and CKMB Interp 8.8 Troponin I 2.640 H Total Protein Albumin Globulin Albumin/Globulin Ratio Urine Color Urine Appearance Urine pH Ur Specific [place] Urine Protein Urine Glucose (UA) Urine Ketones Urine Blood Urine Nitrate Urine Bilirubin Urine Urobilinogen Urine Leukocytes Urine RBC Urine WBC Ur Culture Indicated? Blood Type Antibody Screen Crossmatch 07/16/17 07/16/17 07/16/17 14:54 16:26 17:35 WBC RBC Hgb Hct MCV MCH MCHC RDW Plt Count MPV Neut % (Auto) Lymph % (Auto) [place] % (Auto) Eos % (Auto) Baso % (Auto) Neut # (Auto) Lymph # (Auto) [place] # (Auto) Eos # (Auto) Baso # (Auto) Immature Gran % Nucleated RBC % Immature Gran # Nucleated RBCs # Immature Plt Fraction INR PT Patient/Control Mix Circ Anticoag PTT Patient Temperature ABG pH 7.392 7.352 7.315 L ABG pH at Pt Temp ABG pCO2 43.6 46.8 53.0 H ABG pCO2 at Pt Temp ABG pO2 88.4 91.7 86.2 ABG pO2 at Pt Temp ABG HCO3 25.5 24.3 24.1 ABG Total CO2 23.0 22.8 L 23.6 ABG O2 Saturation 96.8 96.5 95.5 ABG Base Excess 1.2 -0.2 -0.3 ABG Sodium VBG pH VBG pCO2 VBG pO2 VBG HCO3 VBG Total CO2 VBG O2 Saturation VBG Base Excess Hemoglobin 13.8 L 13.0 L 13.9 L Hematocrit 42.4 40.0 L 42.8 Potassium 4.0 4.0 4.6 Glucose 157 H 162 H 171 H Ionized Calcium FiO2 Sodium Chloride Carbon Dioxide Anion Gap BUN Creatinine GFR Calculation BUN/Creatinine Ratio Calculated Osmolality Calcium Venous Ioniz Calcium Magnesium Total Bilirubin AST ALT Alkaline Phosphatase Total Creatine Kinase CK-MB (CK-2) CK and CKMB Interp Troponin I Total Protein Albumin Globulin Albumin/Globulin Ratio Urine Color Urine Appearance Urine pH Ur Specific [place] Urine Protein Urine Glucose (UA) Urine Ketones Urine Blood Urine Nitrate Urine Bilirubin Urine Urobilinogen Urine Leukocytes Urine RBC Urine WBC Ur Culture Indicated? Blood Type Antibody Screen Crossmatch 07/16/17 07/16/17 07/16/17 18:30 19:35 19:35 WBC RBC Hgb Hct MCV MCH MCHC RDW Plt Count MPV Neut % (Auto) Lymph % (Auto) [place] % (Auto) Eos % (Auto) Baso % (Auto) Neut # (Auto) Lymph # (Auto) [place] # (Auto) Eos # (Auto) Baso # (Auto) Immature Gran % Nucleated RBC % Immature Gran # Nucleated RBCs # Immature Plt Fraction INR PT Patient/Control Mix Circ Anticoag PTT Patient Temperature ABG pH 7.310 L 7.372 ABG pH at Pt Temp ABG pCO2 53.2 H 42.5 ABG pCO2 at Pt Temp ABG pO2 85.5 117.0 H ABG pO2 at Pt Temp ABG HCO3 26.2 H 23.9 ABG Total CO2 27.8 H 21.8 L ABG O2 Saturation 95.2 98.5 ABG Base Excess -0.9 -0.6 ABG Sodium VBG pH VBG pCO2 VBG pO2 VBG HCO3 VBG Total CO2 VBG O2 Saturation VBG Base Excess Hemoglobin 14.4 12.4 L Hematocrit 42.0 38.2 L Potassium 4.9 4.2 Glucose 172 H 186 H Ionized Calcium FiO2 Sodium Chloride Carbon Dioxide Anion Gap BUN Creatinine GFR Calculation BUN/Creatinine Ratio Calculated Osmolality Calcium Venous Ioniz Calcium Magnesium Total Bilirubin AST ALT Alkaline Phosphatase Total Creatine Kinase 264 D CK-MB (CK-2) 15.9 H CK and CKMB Interp 6.0 Troponin I 5.280 H D Total Protein Albumin Globulin Albumin/Globulin Ratio Urine Color Urine Appearance Urine pH Ur Specific [place] Urine Protein Urine Glucose (UA) Urine Ketones Urine Blood Urine Nitrate Urine Bilirubin Urine Urobilinogen Urine Leukocytes Urine RBC Urine WBC Ur Culture Indicated? Blood Type Antibody Screen Crossmatch Quality Measures - VTE Contraindication to Pharmacological VTE Prophylaxis: High Risk of Bleeding Specialty Discharge - Follow Up or Referrals Follow up with: Endy Cochran MD [Physician] -
[2017-07-16 22:48] LABS: ABG Base Excess -1.2 MMOL/L (-2.5-2.5); ABG HCO3 23.4 MMOL/L (20-26); ABG PCO2 28.8 MM HG (35-48); ABG PH 7.474 (7.35-7.45); ABG TCO2 18.4 MMOL/L (23-27); Glucose Heart Surgery 185 MG/DL (74-106); Hematocrit Heart Surgery 40.1 PERCENT (42-52); Hemoglobin Heart Surgery 13.1 G/DL (14.0-18.0); Potassium Heart/CVR 4.3 MMOL/L (3.5-5.1)
[2017-07-16 23:48] LABS: ABG Base Excess -0.7 MMOL/L (-2.5-2.5); ABG HCO3 23.8 MMOL/L (20-26); ABG Oxygen Saturation 98.7 % (95-100); ABG PCO2 38.9 MM HG (35-48); ABG PH 7.396 (7.35-7.45); ABG TCO2 20.8 MMOL/L (23-27); Glucose Heart Surgery 194 MG/DL (74-106); Hematocrit Heart Surgery 40.5 PERCENT (42-52); Hemoglobin Heart Surgery 13.2 G/DL (14.0-18.0); Potassium Heart/CVR 3.8 MMOL/L (3.5-5.1)
[2017-07-17 00:51] LABS: ABG Base Excess -0.8 MMOL/L (-2.5-2.5); ABG HCO3 23.8 MMOL/L (20-26); ABG Oxygen Saturation 98.7 % (95-100); ABG PCO2 39.7 MM HG (35-48); ABG TCO2 20.9 MMOL/L (23-27); Glucose Heart Surgery 191 MG/DL (74-106); Hematocrit Heart Surgery 40.9 PERCENT (42-52); Hemoglobin Heart Surgery 13.3 G/DL (14.0-18.0); Potassium Heart/CVR 3.6 MMOL/L (3.5-5.1)
[2017-07-17] MEDS: POTASSIUM CHLORIDE RIDER 20 MEQ in PREMIX 1 EACH IV PRN ×2 (01:24→11:06)
[2017-07-17] MEDS: POTASSIUM CHLORIDE RIDER 10 MEQ in PREMIX 1 EACH IV PRN (02:43)
[2017-07-17] MEDS: MORPHINE 2 MG/1 ML SYRINGE IV PRN (02:46)
[2017-07-17 04:03] LABS: Basophils % 0.1 % (0.0-0.8); Hematocrit 37.5 VOL% (42.0-52.0); Hemoglobin 13.1 GM/DL (14.0-18.0); Immature Granulocytes % 0.6 %; Immature Granulocytes Absolute 0.09 #; Lymphocytes # 1.3 10*3/uL (1.4-4.0); Lymphocytes % 8.4 % (21.2-54.2); Mean Corpuscular HGB Conc 34.9 GM/DL (32-36); Mean Corpuscular Hemoglobin 29 PG (27-34); Mean Corpuscular Volume 83.5 FL (87-102); Mean Platelet Volume 9.9 FL (9.6-12.0); Monocytes # 0.9 10*3/uL (0.11-0.8); Monocytes % 5.8 % (1.7-12.7); Neutrophils # 13.2 10*3/uL (1.4-7.4); Neutrophils % 85.1 % (38.7-73.9); Platelet Count 105 T/CUMM (130-400); Red Blood Count 4.49 MC/CUMM (3.8-5.5); Red Cell Distribution Width 13.1 % (9.3-17.3); White Blood Count 15.6 T/CUMM (4-12)
[2017-07-17 04:07] LABS: ABG Base Excess -1.4 MMOL/L (-2.5-2.5); ABG HCO3 23.2 MMOL/L (20-26); ABG Oxygen Saturation 97.9 % (95-100); ABG PCO2 40.2 MM HG (35-48); ABG PH 7.377 (7.35-7.45); ABG PO2 99.7 MM HG (80-95); ABG TCO2 20.7 MMOL/L (23-27); Glucose Heart Surgery 171 MG/DL (74-106); Potassium Heart/CVR 3.9 MMOL/L (3.5-5.1)
[2017-07-17 04:51] LABS: Albumin 3.8 G/DL (3.4-5.0); Bilirubin,Direct 0.44 MG/DL (0.0-0.20); Bilirubin,Total 1.6 MG/DL (0.2-1.0); Calcium 8.5 MG/DL (8.5-10.1); Magnesium 2.1 MG/DL (1.8-2.4); Osmolality,Calculated 289.1 MOS/KG (273-304); Potassium 4.1 MMOL/L (3.5-5.1); Total Protein 5.7 G/DL (6.4-8.3)
[2017-07-17 04:55] LABS: CKMB % 3.6 %
[2017-07-17 04:58] LABS: Troponin I Only 2.7 NG/ML (0.00-0.045)
[2017-07-17] MEDS: INSULIN REGULAR 100 UNIT/ML SUBCUT SCH ×3 (05:32→13:19)
[2017-07-17] MEDS: KETOROLAC 30 MG/1 ML VIAL IV SCH ×4 (05:36→21:19)
--- NOTE | 2017-07-17 06:41 | Cardiothoracic Progress Note ---
Cardiothoracic Subjective Interval history: Patient is awake alert and extubated. He was stable through the night and it remains in normal sinus rhythm with a stable blood pressure. He is still on dobutamine at 3 mcg/kg/min and his cardiac output has been in the range of 4.5 L /min. Chest tube drainage has been minimal and his chest tubes are removed. Urine output has been good and his creatinine is within normal limits. Cardiac enzymes are mildly elevated but within the range of normal for postoperative day 1 following coronary bypass. Overall his progress is satisfactory and we will try to wean his dobutamine and if this is successful he may be ready for transfer later today. Exam (Progress Note) - Constitutional Vitals: Period Temp Pulse Resp BP Sys/Mcgrath Pulse Ox Last 24 Hr 96.7 F-99.6 F 66-90 04-23 89-125/45-63 94-100 Result/EKG - Labs CBC & BMP: 07/17/17 03:55 07/17/17 03:55 Labs: Laboratory Results - last 24 hr 07/15/17 07/16/17 07/16/17 09:31 07:00 07:30 WBC RBC Hgb Hct MCV MCH MCHC RDW Plt Count MPV Neut % (Auto) Lymph % (Auto) Clark % (Auto) Eos % (Auto) Baso % (Auto) Neut # (Auto) Lymph # (Auto) Clark # (Auto) Eos # (Auto) Baso # (Auto) Immature Gran % Nucleated RBC % Immature Gran # Nucleated RBCs # Immature Plt Fraction INR PT Patient/Control Mix Circ Anticoag PTT Patient Temperature 37 ABG pH 7.392 ABG pH at Pt Temp 7.392 ABG pCO2 43.8 ABG pCO2 at Pt Temp 43.8 ABG pO2 255.0 H ABG pO2 at Pt Temp 255.0 ABG HCO3 25.5 ABG Total CO2 21.7 L ABG O2 Saturation 99.6 ABG Base Excess 1.2 ABG Sodium 137 VBG pH VBG pCO2 VBG pO2 VBG HCO3 VBG Total CO2 VBG O2 Saturation VBG Base Excess Hemoglobin 18.1 H Hematocrit 55.2 H Potassium 3.9 Glucose 117 H Ionized Calcium 1.16 L FiO2 Sodium Chloride Carbon Dioxide Anion Gap BUN Creatinine GFR Calculation BUN/Creatinine Ratio Calculated Osmolality Calcium Venous Ioniz Calcium Magnesium Total Bilirubin Direct Bilirubin AST ALT Alkaline Phosphatase Total Creatine Kinase CK-MB (CK-2) CK and CKMB Interp Troponin I Total Protein Albumin Globulin Albumin/Globulin Ratio Urine Color Yellow Urine Appearance Clear Urine pH 7.0 Ur Specific Ivor 1.010 Urine Protein Negative Urine Glucose (UA) Negative Urine Ketones Negative Urine Blood Negative Urine Nitrate Negative Urine Bilirubin Negative Urine Urobilinogen < 2.0 H Urine Leukocytes Negative Urine RBC <1 Urine WBC 1 Ur Culture Indicated? Not indicated Blood Type A POSITIVE Antibody Screen Negative Crossmatch See Detail 07/16/17 07/16/17 07/16/17 07:41 08:40 09:10 WBC RBC Hgb Hct MCV MCH MCHC RDW Plt Count 188 D MPV Neut % (Auto) Lymph % (Auto) Clark % (Auto) Eos % (Auto) Baso % (Auto) Neut # (Auto) Lymph # (Auto) Clark # (Auto) Eos # (Auto) Baso # (Auto) Immature Gran % Nucleated RBC % Immature Gran # Nucleated RBCs # Immature Plt Fraction INR PT Patient/Control Mix Circ Anticoag PTT Patient Temperature 34 35 ABG pH ABG pH at Pt Temp 7.449 7.445 ABG pCO2 ABG pCO2 at Pt Temp 37.1 38.7 ABG pO2 ABG pO2 at Pt Temp 38.7 45.8 ABG HCO3 ABG Total CO2 ABG O2 Saturation ABG Base Excess ABG Sodium 127 L 130 L VBG pH 7.405 7.416 VBG pCO2 42.9 42.6 VBG pO2 47.6 H 52.5 H VBG HCO3 25.7 26.3 VBG Total CO2 23.9 23.9 VBG O2 Saturation 82.3 86.3 VBG Base Excess 1.9 2.5 Hemoglobin 12.1 L D 13.3 L Hematocrit 37.2 L 40.8 L Potassium 4.6 4.4 Glucose 350 H 246 H Ionized Calcium FiO2 80.00 80.00 Sodium Chloride Carbon Dioxide Anion Gap BUN Creatinine GFR Calculation BUN/Creatinine Ratio Calculated Osmolality Calcium Venous Ioniz Calcium 0.91 L 0.97 L Magnesium Total Bilirubin Direct Bilirubin AST ALT Alkaline Phosphatase Total Creatine Kinase CK-MB (CK-2) CK and CKMB Interp Troponin I Total Protein Albumin Globulin Albumin/Globulin Ratio Urine Color Urine Appearance Urine pH Ur Specific Ivor Urine Protein Urine Glucose (UA) Urine Ketones Urine Blood Urine Nitrate Urine Bilirubin Urine Urobilinogen Urine Leukocytes Urine RBC Urine WBC Ur Culture Indicated? Blood Type Antibody Screen Crossmatch 07/16/17 07/16/17 07/16/17 10:01 10:01 11:04 WBC 12.2 H D RBC 4.42 D Hgb 13.0 L D Hct 37.2 L MCV 84.2 L MCH 29 MCHC 34.9 RDW 13.1 Plt Count 122 L D 113 L MPV 9.4 L Neut % (Auto) 69.7 Lymph % (Auto) 17.1 L Clark % (Auto) 8.9 Eos % (Auto) 2.7 Baso % (Auto) 0.9 H Neut # (Auto) 8.5 H Lymph # (Auto) 2.1 Clark # (Auto) 1.1 H Eos # (Auto) 0.3 Baso # (Auto) 0.1 Immature Gran % 0.7 Nucleated RBC % 0.0 Immature Gran # 0.09 Nucleated RBCs # 0.00 Immature Plt Fraction 0.0 INR PT Patient/Control Mix Circ Anticoag PTT Patient Temperature 37 ABG pH 7.417 ABG pH at Pt Temp 7.417 ABG pCO2 38.7 ABG pCO2 at Pt Temp 38.7 ABG pO2 191.0 H ABG pO2 at Pt Temp 191.0 ABG HCO3 24.9 ABG Total CO2 21.4 L ABG O2 Saturation 99.3 ABG Base Excess 0.6 ABG Sodium 134 L VBG pH VBG pCO2 VBG pO2 VBG HCO3 VBG Total CO2 VBG O2 Saturation VBG Base Excess Hemoglobin 13.9 L Hematocrit 42.6 Potassium 3.7 Glucose 196 H Ionized Calcium 1.18 L FiO2 Sodium Chloride Carbon Dioxide Anion Gap BUN Creatinine GFR Calculation BUN/Creatinine Ratio Calculated Osmolality Calcium Venous Ioniz Calcium Magnesium Total Bilirubin Direct Bilirubin AST ALT Alkaline Phosphatase Total Creatine Kinase CK-MB (CK-2) CK and CKMB Interp Troponin I Total Protein Albumin Globulin Albumin/Globulin Ratio Urine Color Urine Appearance Urine pH Ur Specific Ivor Urine Protein Urine Glucose (UA) Urine Ketones Urine Blood Urine Nitrate Urine Bilirubin Urine Urobilinogen Urine Leukocytes Urine RBC Urine WBC Ur Culture Indicated? Blood Type Antibody Screen Crossmatch 07/16/17 07/16/17 07/16/17 11:04 11:04 11:04 WBC RBC Hgb Hct MCV MCH MCHC RDW Plt Count MPV Neut % (Auto) Lymph % (Auto) Clark % (Auto) Eos % (Auto) Baso % (Auto) Neut # (Auto) Lymph # (Auto) Clark # (Auto) Eos # (Auto) Baso # (Auto) Immature Gran % Nucleated RBC % Immature Gran # Nucleated RBCs # Immature Plt Fraction INR 1.8 PT Patient/Control Mix 18.7 Circ Anticoag PTT 33.4 Patient Temperature ABG pH 7.373 ABG pH at Pt Temp ABG pCO2 42.7 ABG pCO2 at Pt Temp ABG pO2 101.0 H ABG pO2 at Pt Temp ABG HCO3 24.0 ABG Total CO2 21.8 L ABG O2 Saturation 97.5 ABG Base Excess -0.5 ABG Sodium VBG pH VBG pCO2 VBG pO2 VBG HCO3 VBG Total CO2 VBG O2 Saturation VBG Base Excess Hemoglobin 12.8 L Hematocrit 39.5 L Potassium 3.9 3.7 Glucose 142 H 145 H Ionized Calcium FiO2 Sodium 143 Chloride 110 H Carbon Dioxide 25 Anion Gap 11.9 BUN 18 Creatinine 1.00 GFR Calculation 88 BUN/Creatinine Ratio 18.00 Calculated Osmolality 288.0 Calcium 8.4 L Venous Ioniz Calcium Magnesium 2.2 Total Bilirubin 1.20 H Direct Bilirubin AST 26 ALT 24 Alkaline Phosphatase 36 L Total Creatine Kinase CK-MB (CK-2) CK and CKMB Interp Troponin I Total Protein 4.4 L Albumin 2.7 L Globulin 1.7 L Albumin/Globulin Ratio 1.5 Urine Color Urine Appearance Urine pH Ur Specific Ivor Urine Protein Urine Glucose (UA) Urine Ketones Urine Blood Urine Nitrate Urine Bilirubin Urine Urobilinogen Urine Leukocytes Urine RBC Urine WBC Ur Culture Indicated? Blood Type Antibody Screen Crossmatch 07/16/17 07/16/17 07/16/17 11:04 12:34 13:42 WBC RBC Hgb Hct MCV MCH MCHC RDW Plt Count MPV Neut % (Auto) Lymph % (Auto) Clark % (Auto) Eos % (Auto) Baso % (Auto) Neut # (Auto) Lymph # (Auto) Clark # (Auto) Eos # (Auto) Baso # (Auto) Immature Gran % Nucleated RBC % Immature Gran # Nucleated RBCs # Immature Plt Fraction INR PT Patient/Control Mix Circ Anticoag PTT Patient Temperature ABG pH 7.394 7.404 ABG pH at Pt Temp ABG pCO2 43.1 42.9 ABG pCO2 at Pt Temp ABG pO2 92.4 82.1 ABG pO2 at Pt Temp ABG HCO3 25.4 25.9 ABG Total CO2 22.7 L 23.0 ABG O2 Saturation 97.0 96.0 ABG Base Excess 1.2 1.8 ABG Sodium VBG pH VBG pCO2 VBG pO2 VBG HCO3 VBG Total CO2 VBG O2 Saturation VBG Base Excess Hemoglobin 14.0 14.5 Hematocrit 43.1 44.4 Potassium 4.0 4.2 Glucose 135 H 150 H Ionized Calcium FiO2 Sodium Chloride Carbon Dioxide Anion Gap BUN Creatinine GFR Calculation BUN/Creatinine Ratio Calculated Osmolality Calcium Venous Ioniz Calcium Magnesium Total Bilirubin Direct Bilirubin AST ALT Alkaline Phosphatase Total Creatine Kinase 157 CK-MB (CK-2) 13.8 H CK and CKMB Interp 8.8 Troponin I 2.640 H Total Protein Albumin Globulin Albumin/Globulin Ratio Urine Color Urine Appearance Urine pH Ur Specific Ivor Urine Protein Urine Glucose (UA) Urine Ketones Urine Blood Urine Nitrate Urine Bilirubin Urine Urobilinogen Urine Leukocytes Urine RBC Urine WBC Ur Culture Indicated? Blood Type Antibody Screen Crossmatch 07/16/17 07/16/17 07/16/17 14:54 16:26 17:35 WBC RBC Hgb Hct MCV MCH MCHC RDW Plt Count MPV Neut % (Auto) Lymph % (Auto) Clark % (Auto) Eos % (Auto) Baso % (Auto) Neut # (Auto) Lymph # (Auto) Clark # (Auto) Eos # (Auto) Baso # (Auto) Immature Gran % Nucleated RBC % Immature Gran # Nucleated RBCs # Immature Plt Fraction INR PT Patient/Control Mix Circ Anticoag PTT Patient Temperature ABG pH 7.392 7.352 7.315 L ABG pH at Pt Temp ABG pCO2 43.6 46.8 53.0 H ABG pCO2 at Pt Temp ABG pO2 88.4 91.7 86.2 ABG pO2 at Pt Temp ABG HCO3 25.5 24.3 24.1 ABG Total CO2 23.0 22.8 L 23.6 ABG O2 Saturation 96.8 96.5 95.5 ABG Base Excess 1.2 -0.2 -0.3 ABG Sodium VBG pH VBG pCO2 VBG pO2 VBG HCO3 VBG Total CO2 VBG O2 Saturation VBG Base Excess Hemoglobin 13.8 L 13.0 L 13.9 L Hematocrit 42.4 40.0 L 42.8 Potassium 4.0 4.0 4.6 Glucose 157 H 162 H 171 H Ionized Calcium FiO2 Sodium Chloride Carbon Dioxide Anion Gap BUN Creatinine GFR Calculation BUN/Creatinine Ratio Calculated Osmolality Calcium Venous Ioniz Calcium Magnesium Total Bilirubin Direct Bilirubin AST ALT Alkaline Phosphatase Total Creatine Kinase CK-MB (CK-2) CK and CKMB Interp Troponin I Total Protein Albumin Globulin Albumin/Globulin Ratio Urine Color Urine Appearance Urine pH Ur Specific Ivor Urine Protein Urine Glucose (UA) Urine Ketones Urine Blood Urine Nitrate Urine Bilirubin Urine Urobilinogen Urine Leukocytes Urine RBC Urine WBC Ur Culture Indicated? Blood Type Antibody Screen Crossmatch 07/16/17 07/16/17 07/16/17 18:30 19:35 19:35 WBC RBC Hgb Hct MCV MCH MCHC RDW Plt Count MPV Neut % (Auto) Lymph % (Auto) Clark % (Auto) Eos % (Auto) Baso % (Auto) Neut # (Auto) Lymph # (Auto) Clark # (Auto) Eos # (Auto) Baso # (Auto) Immature Gran % Nucleated RBC % Immature Gran # Nucleated RBCs # Immature Plt Fraction INR PT Patient/Control Mix Circ Anticoag PTT Patient Temperature ABG pH 7.310 L 7.372 ABG pH at Pt Temp ABG pCO2 53.2 H 42.5 ABG pCO2 at Pt Temp ABG pO2 85.5 117.0 H ABG pO2 at Pt Temp ABG HCO3 26.2 H 23.9 ABG Total CO2 27.8 H 21.8 L ABG O2 Saturation 95.2 98.5 ABG Base Excess -0.9 -0.6 ABG Sodium VBG pH VBG pCO2 VBG pO2 VBG HCO3 VBG Total CO2 VBG O2 Saturation VBG Base Excess Hemoglobin 14.4 12.4 L Hematocrit 42.0 38.2 L Potassium 4.9 4.2 Glucose 172 H 186 H Ionized Calcium FiO2 Sodium Chloride Carbon Dioxide Anion Gap BUN Creatinine GFR Calculation BUN/Creatinine Ratio Calculated Osmolality Calcium Venous Ioniz Calcium Magnesium Total Bilirubin Direct Bilirubin AST ALT Alkaline Phosphatase Total Creatine Kinase 264 D CK-MB (CK-2) 15.9 H CK and CKMB Interp 6.0 Troponin I 5.280 H D Total Protein Albumin Globulin Albumin/Globulin Ratio Urine Color Urine Appearance Urine pH Ur Specific Ivor Urine Protein Urine Glucose (UA) Urine Ketones Urine Blood Urine Nitrate Urine Bilirubin Urine Urobilinogen Urine Leukocytes Urine RBC Urine WBC Ur Culture Indicated? Blood Type Antibody Screen Crossmatch 07/16/17 07/16/17 07/17/17 22:45 23:45 00:44 WBC RBC Hgb Hct MCV MCH MCHC RDW Plt Count MPV Neut % (Auto) Lymph % (Auto) Clark % (Auto) Eos % (Auto) Baso % (Auto) Neut # (Auto) Lymph # (Auto) Clark # (Auto) Eos # (Auto) Baso # (Auto) Immature Gran % Nucleated RBC % Immature Gran # Nucleated RBCs # Immature Plt Fraction INR PT Patient/Control Mix Circ Anticoag PTT Patient Temperature ABG pH 7.474 H 7.396 7.390 ABG pH at Pt Temp ABG pCO2 28.8 L 38.9 39.7 ABG pCO2 at Pt Temp ABG pO2 121.0 H 122.0 H 127.0 H ABG pO2 at Pt Temp ABG HCO3 23.4 23.8 23.8 ABG Total CO2 18.4 L 20.8 L 20.9 L ABG O2 Saturation 99.0 98.7 98.7 ABG Base Excess -1.2 -0.7 -0.8 ABG Sodium VBG pH VBG pCO2 VBG pO2 VBG HCO3 VBG Total CO2 VBG O2 Saturation VBG Base Excess Hemoglobin 13.1 L 13.2 L 13.3 L Hematocrit 40.1 L 40.5 L 40.9 L Potassium 4.3 3.8 3.6 Glucose 185 H 194 H 191 H Ionized Calcium FiO2 Sodium Chloride Carbon Dioxide Anion Gap BUN Creatinine GFR Calculation BUN/Creatinine Ratio Calculated Osmolality Calcium Venous Ioniz Calcium Magnesium Total Bilirubin Direct Bilirubin AST ALT Alkaline Phosphatase Total Creatine Kinase CK-MB (CK-2) CK and CKMB Interp Troponin I Total Protein Albumin Globulin Albumin/Globulin Ratio Urine Color Urine Appearance Urine pH Ur Specific Ivor Urine Protein Urine Glucose (UA) Urine Ketones Urine Blood Urine Nitrate Urine Bilirubin Urine Urobilinogen Urine Leukocytes Urine RBC Urine WBC Ur Culture Indicated? Blood Type Antibody Screen Crossmatch 07/17/17 07/17/17 07/17/17 03:55 03:55 03:55 WBC 15.6 H RBC 4.49 Hgb 13.1 L Hct 37.5 L MCV 83.5 L MCH 29 MCHC 34.9 RDW 13.1 Plt Count 105 L MPV 9.9 Neut % (Auto) 85.1 H Lymph % (Auto) 8.4 L Clark % (Auto) 5.8 Eos % (Auto) 0.0 Baso % (Auto) 0.1 Neut # (Auto) 13.2 H Lymph # (Auto) 1.3 L Clark # (Auto) 0.9 H Eos # (Auto) 0.0 Baso # (Auto) 0.0 Immature Gran % 0.6 Nucleated RBC % 0.0 Immature Gran # 0.09 Nucleated RBCs # 0.00 Immature Plt Fraction 0.0 INR PT Patient/Control Mix Circ Anticoag PTT Patient Temperature ABG pH ABG pH at Pt Temp ABG pCO2 ABG pCO2 at Pt Temp ABG pO2 ABG pO2 at Pt Temp ABG HCO3 ABG Total CO2 ABG O2 Saturation ABG Base Excess ABG Sodium VBG pH VBG pCO2 VBG pO2 VBG HCO3 VBG Total CO2 VBG O2 Saturation VBG Base Excess Hemoglobin Hematocrit Potassium 4.1 Glucose 167 H Ionized Calcium FiO2 Sodium 142 Chloride 109 H Carbon Dioxide 25 Anion Gap 12.1 BUN 22 H Creatinine 0.90 GFR Calculation 100 BUN/Creatinine Ratio 24.00 H Calculated Osmolality 289.1 Calcium 8.5 Venous Ioniz Calcium Magnesium 2.1 Total Bilirubin 1.60 H Direct Bilirubin 0.440 H AST 40 H ALT 30 Alkaline Phosphatase 39 L Total Creatine Kinase 416 H D CK-MB (CK-2) 15.1 H CK and CKMB Interp 3.6 Troponin I 2.700 H D Total Protein 5.7 L Albumin 3.8 Globulin 1.9 L Albumin/Globulin Ratio 2.0 Urine Color Urine Appearance Urine pH Ur Specific Ivor Urine Protein Urine Glucose (UA) Urine Ketones Urine Blood Urine Nitrate Urine Bilirubin Urine Urobilinogen Urine Leukocytes Urine RBC Urine WBC Ur Culture Indicated? Blood Type Antibody Screen Crossmatch 07/17/17 03:55 WBC RBC Hgb Hct MCV MCH MCHC RDW Plt Count MPV Neut % (Auto) Lymph % (Auto) Clark % (Auto) Eos % (Auto) Baso % (Auto) Neut # (Auto) Lymph # (Auto) Clark # (Auto) Eos # (Auto) Baso # (Auto) Immature Gran % Nucleated RBC % Immature Gran # Nucleated RBCs # Immature Plt Fraction INR PT Patient/Control Mix Circ Anticoag PTT Patient Temperature ABG pH 7.377 ABG pH at Pt Temp ABG pCO2 40.2 ABG pCO2 at Pt Temp ABG pO2 99.7 H ABG pO2 at Pt Temp ABG HCO3 23.2 ABG Total CO2 20.7 L ABG O2 Saturation 97.9 ABG Base Excess -1.4 ABG Sodium VBG pH VBG pCO2 VBG pO2 VBG HCO3 VBG Total CO2 VBG O2 Saturation VBG Base Excess Hemoglobin 13.0 L Hematocrit 40.0 L Potassium 3.9 Glucose 171 H Ionized Calcium FiO2 Sodium Chloride Carbon Dioxide Anion Gap BUN Creatinine GFR Calculation BUN/Creatinine Ratio Calculated Osmolality Calcium Venous Ioniz Calcium Magnesium Total Bilirubin Direct Bilirubin AST ALT Alkaline Phosphatase Total Creatine Kinase CK-MB (CK-2) CK and CKMB Interp Troponin I Total Protein Albumin Globulin Albumin/Globulin Ratio Urine Color Urine Appearance Urine pH Ur Specific Ivor Urine Protein Urine Glucose (UA) Urine Ketones Urine Blood Urine Nitrate Urine Bilirubin Urine Urobilinogen Urine Leukocytes Urine RBC Urine WBC Ur Culture Indicated? Blood Type Antibody Screen Crossmatch Quality Measures - VTE Contraindication to Pharmacological VTE Prophylaxis: High Risk of Bleeding Specialty Discharge - Follow Up or Referrals Follow up with: Endy Cochran MD [Physician] -
[2017-07-17] MEDS ORDERED: ZALEPLON 5 MG CAPSULE PO PRN (06:44)
[2017-07-17] MEDS ORDERED: PANTOPRAZOLE 40 MG VIAL IV ONE (06:44)
[2017-07-17] MEDS: CEFUROXIME INJ 1,500 MG in SODIUM CHLORIDE 0.9% 100 ML IV SCH (07:02)
--- NOTE | 2017-07-17 07:05 | Anesthesia Post-Op ---
Anesthesia Post OP - Post Ansesthetic Evaluation Patient seen in post op: Yes Resp: other (pt on nasal cannula) CV: within normal limits (Dobutamin gtt, Donald d/c'd this am, + mahin and swan) Mental: within normal limits Temp: within normal limits [id number]: within normal limits Nausea and Vomiting: within normal limits Pain: within normal limits Other:: Pt denies recall, dental or oral trauma, denies N/t to extremities
--- NOTE | 2017-07-17 07:27 | Order Completion Report ---
See report scanned to EMR
[2017-07-17] MEDS: OMEGA 3 ACID ETHYL ESTERS 1 GM CAPSULE PO SCH ×2 (08:09→21:22)
--- NOTE | 2017-07-17 08:11 | XRay Report ---
History is chest tube removal Comparison 07/16/2017 The anterior chest tubes been removed. ET tube is been removed. Right central line and Shaw-Geraldine catheters remain. Shaw-Geraldine catheter tip is been retracted and now in the right pulmonary artery No pneumothorax seen. Small amounts of the soft tissue gas present Mild basilar atelectasis remains. Impression: 1. Interval chest tube removal. No pneumothorax seen 2. Mild basilar atelectasis remains PROCEDURE INTERPRETED AT [facility] DEPARTMENT OF RADIOLOGY Final Report Signed by: Dr. Emily Ernst
[2017-07-17] MEDS: CHOLECALCIFEROL 1,000 UNIT TABLET PO SCH ×2 (08:12→21:21)
[2017-07-17] MEDS: AMIODARONE 200 MG TABLET PO SCH ×2 (08:16→21:20)
[2017-07-17] MEDS: MULTIVITAMIN (BEROCCA) TABLET PO SCH (08:16)
[2017-07-17] MEDS: traMADol 50 MG TABLET PO SCH ×2 (08:17→21:20)
[2017-07-17] MEDS: GABAPENTIN 400 MG CAPSULE PO SCH ×3 (08:17→21:21)
[2017-07-17] MEDS: ASPIRIN CHEW 81 MG TABLET PO SCH (08:18)
[2017-07-17] MEDS: SPIRONOLACTONE 25 MG TABLET PO SCH (08:19)
[2017-07-17] MEDS: MONTELUKAST 10 MG TABLET PO SCH (08:19)
[2017-07-17] MEDS: CHLORHEXIDINE 0.12% ORAL RINSE 60 ML BOTTLE SWISH/SPIT SCH ×2 (08:26→21:20)
--- NOTE | 2017-07-17 08:50 | Cardiology Progress Note ---
Assessment and Plan - Time spent with patient Time spent with patient: Greater than 30 minutes (1) Hypotension Status: Acute Assessment and plan: SEE PLAN OF CARE LISTED BELOW Current Visit: Yes (2) Ischemic cardiomyopathy Status: Chronic Assessment and plan: SEE PLAN OF CARE LISTED BELOW Current Visit: Yes (3) Dyslipidemia Status: Chronic Assessment and plan: SEE PLAN OF CARE LISTED BELOW Current Visit: Yes (4) Ventricular arrhythmia Status: Acute Assessment and plan: SEE PLAN OF CARE LISTED BELOW Current Visit: Yes (5) CAD (coronary artery disease) Status: Chronic Assessment and plan: SEE PLAN OF CARE LISTED BELOW Current Visit: No Qualifiers: Coronary Disease-Associated Artery/Lesion type: [place] artery [place] vs. 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 Crews, 67WM, was admitted for elective CABG July 16, 2017. Underwent elective cardiac catheterization July 04, 2017 which revealed severe three-vessel CAD, EF 15%. Dr. Lugo performed CABG with FOX to LAD, SVG to OM. He tolerated the procedure well. Extubated easily same day of surgery. JULY 17, 2017: This morning, Mr. Crews is sitting up in the bedside chair. He does have some chest soreness but in general denies having chest heaviness or tightness. Reports his breathing is coming easily, nonlabored. Chest tubes have been removed. Currently on low-dose Dobutamine to support his blood pressure and hopefully will wean this off today. Amiodarone was initiated yesterday to decrease of ventricular arrhythmias. This to is stable. Encouraged incentive spirometry today. Aspirin continues. When able, will introduce Intresto. Hopefully we can incorporate betablocker rather than Norvasc and will try to do so during hospital stay. At this time, however, favor Amiodorone. Start lipid lowering agent. Further discuss with Dr. Cochran and await additional recommendations. JULY 17, 2017 REVIEW OF SYSTEMS: Cardiovascular: Denies chest pain (other than soreness), heaviness, tightness or palpitations Pulmonary: Denies shortness of breath, PND or orthopnea Gastrointestinal: Denies constipation, diarrhea or abdominal pain IMPRESSION/PLAN: 1. CAD - S/P CABG 2. POD 1. Weaning off Dobutamine as his blood pressure will allow. Hopefully, can restart VINCENT and beta-blockade soon. Continue Aspirin, lipid-lowering agent. Cardiac rehab will be consulted 2. ISCHEMIC CARDIOMYOPATHY - EF 15%. Will closely monitor telemetry for ventricular arrhythmias. Will continue to monitor his daily weights and I&O's to prevent fluid volume overload at this time. 3. DYSLIPIDEMIA - continue lipid-lowering agent. No need to repeat lipid profile as there is a recent profile on file in clinic 4. VENTRICULAR ARRHYTHMIA - continue Amiodarone. We will monitor his telemetry closely. Adjust medications accordingly during hospital stay. 5. HYPOTENSION - suspect this is transient. Holding antihypertensives at this time and will reincorporate soon Exam (Progress Note) - Constitutional Vitals: Period Temp Pulse Resp BP Sys/Mcgrath Pulse Ox Last 24 Hr 96.7 F-99.6 F 64-90 7-17 89-125/45-63 94-100 Exam: General: [Appears well with no apparent distress.] [Pleasant and cooperative. ] [Appears comfortable.] HEENT: [PERRL, normocephalic, atraumatic. Mucous membranes moist. No jaundice noted. Conjunctiva moist and clear, sclerae anicteric] Neck: No JVD/HJR, no thyromegaly or lymphadenopathy noted. No carotid bruit appreciated Cardiac: [Regular rate and rhythm.] [No obvious murmur, rub or gallop.] Sternotomy dressing dry and intact Lungs: [Clear to auscultation without accessory muscle use to assist the respiratory pattern.] Oxygen in use via nasal cannula Abdomen: Soft, bowel sounds normoactive. Nontender and nondistended. No abdominal bruit or thrill noted. No masses noted. Musculoskeletal: No fluid collection. Decreased range of motion is noted. Extremities: No clubbing, cyanosis noted. [ No edema noted.] Upper extremity pulses 2+. Lower extremity pulses 2+. Capillary refill less than 3 seconds. Skin: No unusual lesions or rashes. No skin breakdown appreciated. Neuro: Awake, alert and oriented 3. Moves all extremities well without hemiparesis or paralysis. No essential tremor is appreciated. Result/EKG - Labs CBC & BMP: 07/17/17 03:55 07/17/17 03:55 Lab Results: I have reviewed the past 24 hour labs Labs: Laboratory Results - last 24 hr 07/15/17 07/16/17 07/16/17 09:31 09:10 10:01 WBC RBC Hgb Hct MCV MCH MCHC RDW Plt Count 122 L D MPV Neut % (Auto) Lymph % (Auto) [place] % (Auto) Eos % (Auto) Baso % (Auto) Neut # (Auto) Lymph # (Auto) [place] # (Auto) Eos # (Auto) Baso # (Auto) Immature Gran % Nucleated RBC % Immature Gran # Nucleated RBCs # Immature Plt Fraction INR PT Patient/Control Mix Circ Anticoag PTT Patient Temperature 35 ABG pH ABG pH at Pt Temp 7.445 ABG pCO2 ABG pCO2 at Pt Temp 38.7 ABG pO2 ABG pO2 at Pt Temp 45.8 ABG HCO3 ABG Total CO2 ABG O2 Saturation ABG Base Excess ABG Sodium 130 L VBG pH 7.416 VBG pCO2 42.6 VBG pO2 52.5 H VBG HCO3 26.3 VBG Total CO2 23.9 VBG O2 Saturation 86.3 VBG Base Excess 2.5 Hemoglobin 13.3 L Hematocrit 40.8 L Potassium 4.4 Glucose 246 H Ionized Calcium FiO2 80.00 Sodium Chloride Carbon Dioxide Anion Gap BUN Creatinine GFR Calculation BUN/Creatinine Ratio POC Glucose Calculated Osmolality Calcium Venous Ioniz Calcium 0.97 L Magnesium Total Bilirubin Direct Bilirubin AST ALT Alkaline Phosphatase Total Creatine Kinase CK-MB (CK-2) CK and CKMB Interp Troponin I Total Protein Albumin Globulin Albumin/Globulin Ratio Blood Type A POSITIVE Antibody Screen Negative Crossmatch See Detail 07/16/17 07/16/17 07/16/17 10:01 11:04 11:04 WBC 12.2 H D RBC 4.42 D Hgb 13.0 L D Hct 37.2 L MCV 84.2 L MCH 29 MCHC 34.9 RDW 13.1 Plt Count 113 L MPV 9.4 L Neut % (Auto) 69.7 Lymph % (Auto) 17.1 L [place] % (Auto) 8.9 Eos % (Auto) 2.7 Baso % (Auto) 0.9 H Neut # (Auto) 8.5 H Lymph # (Auto) 2.1 [place] # (Auto) 1.1 H Eos # (Auto) 0.3 Baso # (Auto) 0.1 Immature Gran % 0.7 Nucleated RBC % 0.0 Immature Gran # 0.09 Nucleated RBCs # 0.00 Immature Plt Fraction 0.0 INR 1.8 PT Patient/Control Mix 18.7 Circ Anticoag PTT 33.4 Patient Temperature 37 ABG pH 7.417 ABG pH at Pt Temp 7.417 ABG pCO2 38.7 ABG pCO2 at Pt Temp 38.7 ABG pO2 191.0 H ABG pO2 at Pt Temp 191.0 ABG HCO3 24.9 ABG Total CO2 21.4 L ABG O2 Saturation 99.3 ABG Base Excess 0.6 ABG Sodium 134 L VBG pH VBG pCO2 VBG pO2 VBG HCO3 VBG Total CO2 VBG O2 Saturation VBG Base Excess Hemoglobin 13.9 L Hematocrit 42.6 Potassium 3.7 Glucose 196 H Ionized Calcium 1.18 L FiO2 Sodium Chloride Carbon Dioxide Anion Gap BUN Creatinine GFR Calculation BUN/Creatinine Ratio POC Glucose Calculated Osmolality Calcium Venous Ioniz Calcium Magnesium Total Bilirubin Direct Bilirubin AST ALT Alkaline Phosphatase Total Creatine Kinase CK-MB (CK-2) CK and CKMB Interp Troponin I Total Protein Albumin Globulin Albumin/Globulin Ratio Blood Type Antibody Screen Crossmatch 07/16/17 07/16/17 07/16/17 11:04 11:04 11:04 WBC RBC Hgb Hct MCV MCH MCHC RDW Plt Count MPV Neut % (Auto) Lymph % (Auto) [place] % (Auto) Eos % (Auto) Baso % (Auto) Neut # (Auto) Lymph # (Auto) [place] # (Auto) Eos # (Auto) Baso # (Auto) Immature Gran % Nucleated RBC % Immature Gran # Nucleated RBCs # Immature Plt Fraction INR PT Patient/Control Mix Circ Anticoag PTT Patient Temperature ABG pH 7.373 ABG pH at Pt Temp ABG pCO2 42.7 ABG pCO2 at Pt Temp ABG pO2 101.0 H ABG pO2 at Pt Temp ABG HCO3 24.0 ABG Total CO2 21.8 L ABG O2 Saturation 97.5 ABG Base Excess -0.5 ABG Sodium VBG pH VBG pCO2 VBG pO2 VBG HCO3 VBG Total CO2 VBG O2 Saturation VBG Base Excess Hemoglobin 12.8 L Hematocrit 39.5 L Potassium 3.9 3.7 Glucose 142 H 145 H Ionized Calcium FiO2 Sodium 143 Chloride 110 H Carbon Dioxide 25 Anion Gap 11.9 BUN 18 Creatinine 1.00 GFR Calculation 88 BUN/Creatinine Ratio 18.00 POC Glucose Calculated Osmolality 288.0 Calcium 8.4 L Venous Ioniz Calcium Magnesium 2.2 Total Bilirubin 1.20 H Direct Bilirubin AST 26 ALT 24 Alkaline Phosphatase 36 L Total Creatine Kinase 157 CK-MB (CK-2) 13.8 H CK and CKMB Interp 8.8 Troponin I 2.640 H Total Protein 4.4 L Albumin 2.7 L Globulin 1.7 L Albumin/Globulin Ratio 1.5 Blood Type Antibody Screen Crossmatch 07/16/17 07/16/17 07/16/17 12:34 13:42 14:54 WBC RBC Hgb Hct MCV MCH MCHC RDW Plt Count MPV Neut % (Auto) Lymph % (Auto) [place] % (Auto) Eos % (Auto) Baso % (Auto) Neut # (Auto) Lymph # (Auto) [place] # (Auto) Eos # (Auto) Baso # (Auto) Immature Gran % Nucleated RBC % Immature Gran # Nucleated RBCs # Immature Plt Fraction INR PT Patient/Control Mix Circ Anticoag PTT Patient Temperature ABG pH 7.394 7.404 7.392 ABG pH at Pt Temp ABG pCO2 43.1 42.9 43.6 ABG pCO2 at Pt Temp ABG pO2 92.4 82.1 88.4 ABG pO2 at Pt Temp ABG HCO3 25.4 25.9 25.5 ABG Total CO2 22.7 L 23.0 23.0 ABG O2 Saturation 97.0 96.0 96.8 ABG Base Excess 1.2 1.8 1.2 ABG Sodium VBG pH VBG pCO2 VBG pO2 VBG HCO3 VBG Total CO2 VBG O2 Saturation VBG Base Excess Hemoglobin 14.0 14.5 13.8 L Hematocrit 43.1 44.4 42.4 Potassium 4.0 4.2 4.0 Glucose 135 H 150 H 157 H Ionized Calcium FiO2 Sodium Chloride Carbon Dioxide Anion Gap BUN Creatinine GFR Calculation BUN/Creatinine Ratio POC Glucose Calculated Osmolality Calcium Venous Ioniz Calcium Magnesium Total Bilirubin Direct Bilirubin AST ALT Alkaline Phosphatase Total Creatine Kinase CK-MB (CK-2) CK and CKMB Interp Troponin I Total Protein Albumin Globulin Albumin/Globulin Ratio Blood Type Antibody Screen Crossmatch 07/16/17 07/16/1717 16:26 17:11 17:35 WBC RBC Hgb Hct MCV MCH MCHC RDW Plt Count MPV Neut % (Auto) Lymph % (Auto) [place] % (Auto) Eos % (Auto) Baso % (Auto) Neut # (Auto) Lymph # (Auto) [place] # (Auto) Eos # (Auto) Baso # (Auto) Immature Gran % Nucleated RBC % Immature Gran # Nucleated RBCs # Immature Plt Fraction INR PT Patient/Control Mix Circ Anticoag PTT Patient Temperature ABG pH 7.352 7.315 L ABG pH at Pt Temp ABG pCO2 46.8 53.0 H ABG pCO2 at Pt Temp ABG pO2 91.7 86.2 ABG pO2 at Pt Temp ABG HCO3 24.3 24.1 ABG Total CO2 22.8 L 23.6 ABG O2 Saturation 96.5 95.5 ABG Base Excess -0.2 -0.3 ABG Sodium VBG pH VBG pCO2 VBG pO2 VBG HCO3 VBG Total CO2 VBG O2 Saturation VBG Base Excess Hemoglobin 13.0 L 13.9 L Hematocrit 40.0 L 42.8 Potassium 4.0 4.6 Glucose 162 H 171 H Ionized Calcium FiO2 Sodium Chloride Carbon Dioxide Anion Gap BUN Creatinine GFR Calculation BUN/Creatinine Ratio POC Glucose 161 H Calculated Osmolality Calcium Venous Ioniz Calcium Magnesium Total Bilirubin Direct Bilirubin AST ALT Alkaline Phosphatase Total Creatine Kinase CK-MB (CK-2) CK and CKMB Interp Troponin I Total Protein Albumin Globulin Albumin/Globulin Ratio Blood Type Antibody Screen Crossmatch 07/16/17 07/16/17 07/16/17 18:30 19:18 19:35 WBC RBC Hgb Hct MCV MCH MCHC RDW Plt Count MPV Neut % (Auto) Lymph % (Auto) [place] % (Auto) Eos % (Auto) Baso % (Auto) Neut # (Auto) Lymph # (Auto) [place] # (Auto) Eos # (Auto) Baso # (Auto) Immature Gran % Nucleated RBC % Immature Gran # Nucleated RBCs # Immature Plt Fraction INR PT Patient/Control Mix Circ Anticoag PTT Patient Temperature ABG pH 7.310 L ABG pH at Pt Temp ABG pCO2 53.2 H ABG pCO2 at Pt Temp ABG pO2 85.5 ABG pO2 at Pt Temp ABG HCO3 26.2 H ABG Total CO2 27.8 H ABG O2 Saturation 95.2 ABG Base Excess -0.9 ABG Sodium VBG pH VBG pCO2 VBG pO2 VBG HCO3 VBG Total CO2 VBG O2 Saturation VBG Base Excess Hemoglobin 14.4 Hematocrit 42.0 Potassium 4.9 Glucose 172 H Ionized Calcium FiO2 Sodium Chloride Carbon Dioxide Anion Gap BUN Creatinine GFR Calculation BUN/Creatinine Ratio POC Glucose 176 H Calculated Osmolality Calcium Venous Ioniz Calcium Magnesium Total Bilirubin Direct Bilirubin AST ALT Alkaline Phosphatase Total Creatine Kinase 264 D CK-MB (CK-2) 15.9 H CK and CKMB Interp 6.0 Troponin I 5.280 H D Total Protein Albumin Globulin Albumin/Globulin Ratio Blood Type Antibody Screen Crossmatch 07/16/17 07/16/17 07/16/17 19:35 22:45 23:45 WBC RBC Hgb Hct MCV MCH MCHC RDW Plt Count MPV Neut % (Auto) Lymph % (Auto) [place] % (Auto) Eos % (Auto) Baso % (Auto) Neut # (Auto) Lymph # (Auto) [place] # (Auto) Eos # (Auto) Baso # (Auto) Immature Gran % Nucleated RBC % Immature Gran # Nucleated RBCs # Immature Plt Fraction INR PT Patient/Control Mix Circ Anticoag PTT Patient Temperature ABG pH 7.372 7.474 H 7.396 ABG pH at Pt Temp ABG pCO2 42.5 28.8 L 38.9 ABG pCO2 at Pt Temp ABG pO2 117.0 H 121.0 H 122.0 H ABG pO2 at Pt Temp ABG HCO3 23.9 23.4 23.8 ABG Total CO2 21.8 L 18.4 L 20.8 L ABG O2 Saturation 98.5 99.0 98.7 ABG Base Excess -0.6 -1.2 -0.7 ABG Sodium VBG pH VBG pCO2 VBG pO2 VBG HCO3 VBG Total CO2 VBG O2 Saturation VBG Base Excess Hemoglobin 12.4 L 13.1 L 13.2 L Hematocrit 38.2 L 40.1 L 40.5 L Potassium 4.2 4.3 3.8 Glucose 186 H 185 H 194 H Ionized Calcium FiO2 Sodium Chloride Carbon Dioxide Anion Gap BUN Creatinine GFR Calculation BUN/Creatinine Ratio POC Glucose Calculated Osmolality Calcium Venous Ioniz Calcium Magnesium Total Bilirubin Direct Bilirubin AST ALT Alkaline Phosphatase Total Creatine Kinase CK-MB (CK-2) CK and CKMB Interp Troponin I Total Protein Albumin Globulin Albumin/Globulin Ratio Blood Type Antibody Screen Crossmatch 07/17/17 07/17/17 07/17/17 00:44 03:55 03:55 WBC 15.6 H RBC 4.49 Hgb 13.1 L Hct 37.5 L MCV 83.5 L MCH 29 MCHC 34.9 RDW 13.1 Plt Count 105 L MPV 9.9 Neut % (Auto) 85.1 H Lymph % (Auto) 8.4 L [place] % (Auto) 5.8 Eos % (Auto) 0.0 Baso % (Auto) 0.1 Neut # (Auto) 13.2 H Lymph # (Auto) 1.3 L [place] # (Auto) 0.9 H Eos # (Auto) 0.0 Baso # (Auto) 0.0 Immature Gran % 0.6 Nucleated RBC % 0.0 Immature Gran # 0.09 Nucleated RBCs # 0.00 Immature Plt Fraction 0.0 INR PT Patient/Control Mix Circ Anticoag PTT Patient Temperature ABG pH 7.390 ABG pH at Pt Temp ABG pCO2 39.7 ABG pCO2 at Pt Temp ABG pO2 127.0 H ABG pO2 at Pt Temp ABG HCO3 23.8 ABG Total CO2 20.9 L ABG O2 Saturation 98.7 ABG Base Excess -0.8 ABG Sodium VBG pH VBG pCO2 VBG pO2 VBG HCO3 VBG Total CO2 VBG O2 Saturation VBG Base Excess Hemoglobin 13.3 L Hematocrit 40.9 L Potassium 3.6 Glucose 191 H Ionized Calcium FiO2 Sodium Chloride Carbon Dioxide Anion Gap BUN Creatinine GFR Calculation BUN/Creatinine Ratio POC Glucose Calculated Osmolality Calcium Venous Ioniz Calcium Magnesium Total Bilirubin Direct Bilirubin AST ALT Alkaline Phosphatase Total Creatine Kinase 416 H D CK-MB (CK-2) 15.1 H CK and CKMB Interp 3.6 Troponin I 2.700 H D Total Protein Albumin Globulin Albumin/Globulin Ratio Blood Type Antibody Screen Crossmatch 07/17/17 07/17/17 03:55 03:55 WBC RBC Hgb Hct MCV MCH MCHC RDW Plt Count MPV Neut % (Auto) Lymph % (Auto) [place] % (Auto) Eos % (Auto) Baso % (Auto) Neut # (Auto) Lymph # (Auto) [place] # (Auto) Eos # (Auto) Baso # (Auto) Immature Gran % Nucleated RBC % Immature Gran # Nucleated RBCs # Immature Plt Fraction INR PT Patient/Control Mix Circ Anticoag PTT Patient Temperature ABG pH 7.377 ABG pH at Pt Temp ABG pCO2 40.2 ABG pCO2 at Pt Temp ABG pO2 99.7 H ABG pO2 at Pt Temp ABG HCO3 23.2 ABG Total CO2 20.7 L ABG O2 Saturation 97.9 ABG Base Excess -1.4 ABG Sodium VBG pH VBG pCO2 VBG pO2 VBG HCO3 VBG Total CO2 VBG O2 Saturation VBG Base Excess Hemoglobin 13.0 L Hematocrit 40.0 L Potassium 4.1 3.9 Glucose 167 H 171 H Ionized Calcium FiO2 Sodium 142 Chloride 109 H Carbon Dioxide 25 Anion Gap 12.1 BUN 22 H Creatinine 0.90 GFR Calculation 100 BUN/Creatinine Ratio 24.00 H POC Glucose Calculated Osmolality 289.1 Calcium 8.5 Venous Ioniz Calcium Magnesium 2.1 Total Bilirubin 1.60 H Direct Bilirubin 0.440 H AST 40 H ALT 30 Alkaline Phosphatase 39 L Total Creatine Kinase CK-MB (CK-2) CK and CKMB Interp Troponin I Total Protein 5.7 L Albumin 3.8 Globulin 1.9 L Albumin/Globulin Ratio 2.0 Blood Type Antibody Screen Crossmatch - Diagnostic Findings Procedure: Chest x-ray: report reviewed by me - EKG EKG results: interpreted by me EKG shows: sinus rhythm Quality Measures - VTE Contraindication to Pharmacological VTE Prophylaxis: High Risk of Bleeding Specialty Discharge - Follow Up or Referrals Follow up with: Endy Cochran MD [Physician] -
[2017-07-17] MEDS ORDERED: amLODIPine 5 MG TABLET PO SCH (09:00)
[2017-07-17] MEDS: ALBUMIN 5% 12.5 GM in PREMIX 1 EACH IV PRN (11:05)
[2017-07-17] MEDS: SODIUM CHLORIDE 0.45% 1,000 ML IV SCH ×2 (11:10→11:11)
[2017-07-17] MEDS ORDERED: GLUCAGON 1 MG VIAL IM PRN ×2 (14:15)
[2017-07-17] MEDS ORDERED: MAGNESIUM SULF RIDER 4 GM in PREMIX 1 EACH IV PRN (14:15)
[2017-07-17] MEDS ORDERED: SODIUM CHLOR 0.45% KCL 20 MEQ 20 MEQ/1,000 ML BAG IV SCH (14:15)
[2017-07-17] MEDS ORDERED: MAGNESIUM SULF RIDER 2 GM in PREMIX 1 EACH IV PRN (14:15)
[2017-07-17] MEDS ORDERED: ONDANSETRON 4 MG/2 ML VIAL IV PRN (14:15)
[2017-07-17] MEDS ORDERED: POTASSIUM CHLORIDE 20 MEQ TABLET PO PRN (14:15)
[2017-07-17] MEDS ORDERED: ALUMINUM/MAGNES/SIMETH MAX STR 30 ML UDCUP PO PRN (14:15)
[2017-07-17] MEDS ORDERED: DEXTROSE 50% 25 GM/50 ML VIAL IV PRN ×2 (14:15)
[2017-07-17 14:16] LABS: CKMB % 2.9 %
[2017-07-17 14:18] LABS: Troponin I Only 1.66 NG/ML (0.00-0.045)
[2017-07-17] MEDS: oxyCODONE/ACETAMINOPHEN 5-325 MG TABLET PO PRN (14:57)
--- NOTE | 2017-07-17 17:31 | Sleep Medicine Consult ---
Assessment and Plan (1) Unspecified sleep apnea Status: Acute Assessment and plan: This patient has a history of snoring and has significant cardiac disease with cardiomyopathy and coronary artery disease. With this alone, I recommended sleep evaluation but he declines at this time. We are happy to assess him at a later date if he is so inclined and his knows how to contact the sleep lab. Thank you for this consult. Current Visit: Yes History of Present Illness Chief complaint: Sleep apnea History of present illness: Mr. Crews is a 67 year old male admitted for cardiac evaluation and was found to have multivessel coronary artery disease and severe cardiomyopathy and is status post bypass surgery. He was moved back to the floor from the unit today. He had been screened is being at increased risk for sleep apnea and sleep medicine was consulted. His is been a patient of mine in the past and does have sleep apnea and is on CPAP. She does note that he snores but does not describe his snoring is loud. She is not aware of him stopping breathing during his sleep. She states that he would not want to wear CPAP event he did have sleep apnea. Home Medications Medication Instructions Recorded Confirmed Type Acetaminophen Tab [Tylenol Tab] 325 mg PO BID PRN 07/04/17 07/15/17 History Amitriptyline HCl 50 mg PO BEDTIME 07/04/17 07/15/17 History Calcium Carb/Mag Ox/Zinc Sulf 1 tablet PO BID 07/04/17 07/15/17 History [[place]-Ykzfrtxus-Eaiv Tablet] Carvedilol [Coreg] 50 mg PO BID 07/04/17 07/15/17 History Cholecalciferol (Vitamin D3) 1 capsule PO BID 07/04/17 07/15/17 History [Vitamin D3] Fluticasone/Vilanterol [Breo 1 puff INH DAILY PRN 07/04/17 07/15/17 History Ellipta 100-25 Mcg INH] Furosemide Tab [Lasix Tab] 40 mg PO DAILY 07/04/17 07/15/17 History Gabapentin Cap/Tab [Neurontin 400 mg PO TID 07/04/17 07/15/17 History Cap/Tab] Garlic 2,000 mg PO BID 07/04/17 07/15/17 History Glucosamine/Chondroitin Sulf A 1 each PO BID 07/04/17 07/15/17 History [Glucosamine-Chondroitin Cap] Leg Cramps 1 caplet PO DIRECTED PRN 07/04/17 07/15/17 History Lutein 40 mg PO DAILY 07/04/17 07/15/17 History Montelukast Tab [Singulair Tab] 10 mg PO DAILY 07/04/17 07/15/17 History [place]-3/Dha/Epa/Fish Oil [Fish Oil 2 each PO BID 07/04/17 07/15/17 History 1,000 mg Softgel] Sacubitril/Valsartan [Entresto 24 0.5 tablet PO BEDTIME 07/04/17 07/15/17 History mg-26 mg Tablet] Saw [place] Fruit [Saw [place]] 2 mg PO BID 07/04/17 07/15/17 History Spironolactone [Aldactone] 12.5 mg PO DAILY 07/04/17 07/15/17 History Tizanidine HCl [Zanaflex] 2 mg PO BEDTIME 07/04/17 07/15/17 History Tramadol HCl [Tramadol Tab] 50 mg PO BID 07/04/17 07/15/17 History Vitamin B Complex 1 capsule PO DAILY 07/04/17 07/15/17 History Zolpidem Tartrate [Ambien] 10 mg PO BEDTIME 07/04/17 07/15/17 History amLODIPine [Norvasc] 5 mg PO DAILY 07/04/17 07/15/17 History Aspirin/Calcium Carbonate/Mag 325 mg PO DAILY 07/15/17 07/15/17 History [Aspirin Buffered 325 mg Tab] Allergies Allergy/AdvReac Type Severity Reaction Status Date / Time No Known Allergies Allergy Verified 07/04/17 14:00 Review of systems: Otherwise unremarkable from a sleep medicine standpoint. Exam ([place]) H&P - Constitutional Vitals: Period Temp Pulse Resp BP Sys/Mcgrath Pulse Ox Last 24 Hr 97.1 F-99.6 F 63-86 7-18 89-125/45-63 92-100 Exam: He is alert and responsive and answers questions appropriately. Pupils equal round reactive to light and accommodation. Extraocular movements intact. Oropharynx with a class III Mallampati exam. Neck supple without adenopathy. Chest with symmetrical breath sounds without significant wheeze or rhonchi. Cardiac exam reveals a regular rhythm without murmur or gallop. Abdomen soft nontender without palpable hepatosplenomegaly or mass. Extremities are without clubbing, cyanosis, or edema. Neurologically, he is grossly intact. 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
[2017-07-17] MEDS ORDERED: CEFUROXIME INJ 1,500 MG in SODIUM CHLORIDE 0.9% 50 ML IV SCH (18:44)
[2017-07-17] MEDS ORDERED: SACUBITRIL/VALSARTAN 49-51 MG TABLET PO SCH (21:00)
[2017-07-17] MEDS: tiZANidine 4 MG TABLET PO SCH (21:21)
[2017-07-17] MEDS: AMITRIPTYLINE 50 MG TABLET PO SCH (21:22)
[2017-07-17] MEDS: ROSUVASTATIN 20 MG TABLET PO SCH (21:22)
[2017-07-17] MEDS: ZALEPLON 5 MG CAPSULE PO PRN (21:24)
[2017-07-18] MEDS: ACETAMINOPHEN 325 MG TABLET PO PRN (00:48)
[2017-07-18] MEDS: KETOROLAC 30 MG/1 ML VIAL IV SCH ×4 (02:21→20:41)
[2017-07-18] MEDS: MAGNESIUM HYDROXIDE SUSP 30 ML UDCUP PO PRN (02:28)
[2017-07-18 04:58] LABS: Basophils % 0.1 % (0.0-0.8); Hematocrit 34.1 VOL% (42.0-52.0); Hemoglobin 11.8 GM/DL (14.0-18.0); Immature Granulocytes % 0.8 %; Immature Granulocytes Absolute 0.13 #; Lymphocytes # 0.8 10*3/uL (1.4-4.0); Lymphocytes % 4.9 % (21.2-54.2); Mean Corpuscular HGB Conc 34.6 GM/DL (32-36); Mean Corpuscular Hemoglobin 29 PG (27-34); Mean Corpuscular Volume 84.6 FL (87-102); Mean Platelet Volume 10.8 FL (9.6-12.0); Monocytes # 1.2 10*3/uL (0.11-0.8); Monocytes % 7.6 % (1.7-12.7); Neutrophils # 14.1 10*3/uL (1.4-7.4); Neutrophils % 86.6 % (38.7-73.9); Platelet Count 100 T/CUMM (130-400); Red Blood Count 4.03 MC/CUMM (3.8-5.5); Red Cell Distribution Width 13.4 % (9.3-17.3); White Blood Count 16.3 T/CUMM (4-12)
[2017-07-18 05:21] LABS: Band Neutrophils 2 % (0-10); Lymphocytes 2 % (20-55); Segmented Neutrophils 88 % (50-85); Total Cells Counted 100
[2017-07-18 05:22] LABS: Hypochromasia 1+; Platelet Estimate Decreased
[2017-07-18 05:35] LABS: Albumin 3.4 G/DL (3.4-5.0); Bilirubin,Direct 0.23 MG/DL (0.0-0.20); Bilirubin,Indirect 0.3 MG/DL (0.0-1.0); Bilirubin,Total 0.5 MG/DL (0.2-1.0); CKMB % 1.8 %; Calcium 8.5 MG/DL (8.5-10.1); Magnesium 2.4 MG/DL (1.8-2.4); Osmolality,Calculated 288.4 MOS/KG (273-304); Potassium 4.5 MMOL/L (3.5-5.1); Total Protein 5.5 G/DL (6.4-8.3)
[2017-07-18 05:39] LABS: Troponin I Only 1.11 NG/ML (0.00-0.045)
[2017-07-18] MEDS ORDERED: FUROSEMIDE 40 MG/4 ML VIAL IV ONE (06:00)
--- NOTE | 2017-07-18 06:31 | Cardiothoracic Progress Note ---
Cardiothoracic Subjective Interval history: Patient looks and feels okay this morning. Had a reasonably good night vital signs have been stable and is breathing comfortably. Laboratory work and chest x-ray are all satisfactory for postoperative day #2. We will try to gradually increase his activities today as tolerated but overall his progress appears satisfactory. Exam (Progress Note) - Constitutional Vitals: Period Temp Pulse Resp BP Sys/Mcgrath Pulse Ox Last 24 Hr 97.1 F-98.6 F 63-78 12-20 89-104/45-68 90-96 Result/EKG - Labs CBC & BMP: 07/18/17 Unknown 07/18/17 Unknown Labs: Laboratory Results - last 24 hr 07/15/17 07/16/17 07/16/17 09:31 17:11 19:18 WBC RBC Hgb Hct MCV MCH MCHC RDW Plt Count MPV Neut % (Auto) Lymph % (Auto) [place] % (Auto) Eos % (Auto) Baso % (Auto) Neut # (Auto) Lymph # (Auto) [place] # (Auto) Eos # (Auto) Baso # (Auto) Total Counted Immature Gran % Nucleated RBC % Immature Gran # Segmented Neutrophils Band Neutrophils Lymphocytes Monocytes Nucleated RBCs # Platelet Estimate Immature Plt Fraction Hypochromasia Morphology Comment Sodium Potassium Chloride Carbon Dioxide Anion Gap BUN Creatinine GFR Calculation BUN/Creatinine Ratio Glucose POC Glucose 161 H 176 H Calculated Osmolality Calcium Magnesium Total Bilirubin Direct Bilirubin Indirect Bilirubin AST ALT Alkaline Phosphatase Total Creatine Kinase CK-MB (CK-2) CK and CKMB Interp Troponin I Total Protein Albumin Globulin Albumin/Globulin Ratio Crossmatch See Detail 07/17/17 07/17/17 07/17/17 08:31 09:20 13:08 WBC RBC Hgb Hct MCV MCH MCHC RDW Plt Count MPV Neut % (Auto) Lymph % (Auto) [place] % (Auto) Eos % (Auto) Baso % (Auto) Neut # (Auto) Lymph # (Auto) [place] # (Auto) Eos # (Auto) Baso # (Auto) Total Counted Immature Gran % Nucleated RBC % Immature Gran # Segmented Neutrophils Band Neutrophils Lymphocytes Monocytes Nucleated RBCs # Platelet Estimate Immature Plt Fraction Hypochromasia Morphology Comment Sodium Potassium 4.0 Chloride Carbon Dioxide Anion Gap BUN Creatinine GFR Calculation BUN/Creatinine Ratio Glucose POC Glucose 160 H 141 H Calculated Osmolality Calcium Magnesium Total Bilirubin Direct Bilirubin Indirect Bilirubin AST ALT Alkaline Phosphatase Total Creatine Kinase CK-MB (CK-2) CK and CKMB Interp Troponin I Total Protein Albumin Globulin Albumin/Globulin Ratio Crossmatch 07/17/17 07/17/17 07/17/17 13:27 16:26 19:10 WBC RBC Hgb Hct MCV MCH MCHC RDW Plt Count MPV Neut % (Auto) Lymph % (Auto) [place] % (Auto) Eos % (Auto) Baso % (Auto) Neut # (Auto) Lymph # (Auto) [place] # (Auto) Eos # (Auto) Baso # (Auto) Total Counted Immature Gran % Nucleated RBC % Immature Gran # Segmented Neutrophils Band Neutrophils Lymphocytes Monocytes Nucleated RBCs # Platelet Estimate Immature Plt Fraction Hypochromasia Morphology Comment Sodium Potassium Chloride Carbon Dioxide Anion Gap BUN Creatinine GFR Calculation BUN/Creatinine Ratio Glucose POC Glucose 220 H 212 H Calculated Osmolality Calcium Magnesium Total Bilirubin Direct Bilirubin Indirect Bilirubin AST ALT Alkaline Phosphatase Total Creatine Kinase 376 H CK-MB (CK-2) 10.8 H CK and CKMB Interp 2.9 Troponin I 1.660 H D Total Protein Albumin Globulin Albumin/Globulin Ratio Crossmatch 07/18/17 07/18/17 07/18/17 00:45 04:34 Unknown WBC 16.3 H RBC 4.03 Hgb 11.8 L Hct 34.1 L MCV 84.6 L MCH 29 MCHC 34.6 RDW 13.4 Plt Count 100 L MPV 10.8 Neut % (Auto) 86.6 H Lymph % (Auto) 4.9 L [place] % (Auto) 7.6 Eos % (Auto) 0.0 Baso % (Auto) 0.1 Neut # (Auto) 14.1 H Lymph # (Auto) 0.8 L [place] # (Auto) 1.2 H Eos # (Auto) 0.0 Baso # (Auto) 0.0 Total Counted 100 Immature Gran % 0.8 Nucleated RBC % 0.0 Immature Gran # 0.13 Segmented Neutrophils 88 H Band Neutrophils 2 Lymphocytes 2 L Monocytes 8 Nucleated RBCs # 0.00 Platelet Estimate Decreased Immature Plt Fraction 0.0 Hypochromasia 1+ Morphology Comment Sodium Potassium Chloride Carbon Dioxide Anion Gap BUN Creatinine GFR Calculation BUN/Creatinine Ratio Glucose POC Glucose 191 H 185 H Calculated Osmolality Calcium Magnesium Total Bilirubin Direct Bilirubin Indirect Bilirubin AST ALT Alkaline Phosphatase Total Creatine Kinase CK-MB (CK-2) CK and CKMB Interp Troponin I Total Protein Albumin Globulin Albumin/Globulin Ratio Crossmatch 07/18/17 Unknown WBC RBC Hgb Hct MCV MCH MCHC RDW Plt Count MPV Neut % (Auto) Lymph % (Auto) [place] % (Auto) Eos % (Auto) Baso % (Auto) Neut # (Auto) Lymph # (Auto) [place] # (Auto) Eos # (Auto) Baso # (Auto) Total Counted Immature Gran % Nucleated RBC % Immature Gran # Segmented Neutrophils Band Neutrophils Lymphocytes Monocytes Nucleated RBCs # Platelet Estimate Immature Plt Fraction Hypochromasia Morphology Comment Sodium 140 Potassium 4.5 Chloride 107 Carbon Dioxide 28 Anion Gap 9.5 BUN 32 H Creatinine 1.00 GFR Calculation 93 BUN/Creatinine Ratio 32.00 H Glucose 156 H POC Glucose Calculated Osmolality 288.4 Calcium 8.5 Magnesium 2.4 Total Bilirubin 0.50 Direct Bilirubin 0.230 H Indirect Bilirubin 0.3 AST 26 ALT 28 Alkaline Phosphatase 38 L Total Creatine Kinase 370 H CK-MB (CK-2) 6.5 H CK and CKMB Interp 1.8 Troponin I 1.110 H D Total Protein 5.5 L Albumin 3.4 Globulin 2.1 L Albumin/Globulin Ratio 1.6 Crossmatch Quality Measures - VTE Contraindication to Pharmacological VTE Prophylaxis: High Risk of Bleeding Specialty Discharge - Follow Up or Referrals Follow up with: Endy Cochran MD [Physician] -
--- NOTE | 2017-07-18 08:06 | XRay Report ---
History is short of breath Comparison 07/17/2017 Heart is enlarged. Clif[place]-Geraldine catheter is been removed. No pneumothorax seen Mild reticular and linear opacities in both lung bases remains with elevation the right diaphragm. No new areas of consolidation seen. Impression: No significant change in bibasilar atelectasis. A component of mild interstitial infiltrates or edema could certainly still be present as well. PROCEDURE INTERPRETED AT [facility] DEPARTMENT OF RADIOLOGY Final Report Signed by: Dr. Emily Ernst
[2017-07-18] MEDS: CHOLECALCIFEROL 1,000 UNIT TABLET PO SCH ×2 (08:55→20:45)
[2017-07-18] MEDS: ASPIRIN CHEW 81 MG TABLET PO SCH ×2 (08:55→09:05)
[2017-07-18] MEDS: DOCUSATE SODIUM 100 MG CAPSULE PO SCH (08:55)
[2017-07-18] MEDS: AMIODARONE 200 MG TABLET PO SCH ×2 (08:56→20:47)
[2017-07-18] MEDS: OMEGA 3 ACID ETHYL ESTERS 1 GM CAPSULE PO SCH ×2 (08:56→20:47)
[2017-07-18] MEDS: GABAPENTIN 400 MG CAPSULE PO SCH ×3 (08:56→20:46)
[2017-07-18] MEDS: PANTOPRAZOLE 40 MG TABLET PO SCH (08:56)
[2017-07-18] MEDS: MONTELUKAST 10 MG TABLET PO SCH (08:56)
[2017-07-18] MEDS: ASPIRIN EC 325 MG TABLET PO SCH (08:56)
[2017-07-18] MEDS: FERROUS SULFATE 325 MG TABLET PO SCH ×2 (08:56→09:06)
[2017-07-18] MEDS: MULTIVITAMIN (BEROCCA) TABLET PO SCH (08:58)
[2017-07-18] MEDS: SPIRONOLACTONE 25 MG TABLET PO SCH (08:59)
[2017-07-18] MEDS: traMADol 50 MG TABLET PO SCH ×2 (08:59→21:50)
[2017-07-18] MEDS: CHLORHEXIDINE 0.12% ORAL RINSE 60 ML BOTTLE SWISH/SPIT SCH ×2 (09:00→21:50)
--- NOTE | 2017-07-18 09:02 | Physician Query Form ---
CLICK EDIT DOCUMENT TO SELECT QUERY ANSWER --> OK --> SIGN Angie West RN, CCDS Certified Clinical Certified Athletic Trainer W) [phone] (f) [phone] [email or web address] PROVIDERS: Make your selection(s) from the choices in EACH section by typing an "x" and enter comments in the comment section. Please use your independent medical judgment in providing your response. This request does not imply that any particular answer is desired or expected. CLINICAL INDICATORS: (Providers should not edit this section) The medical record indicates that the patient was admitted for heart surgery, Ischemic cardiomyopathy EF 15%, AND a history of CHF is mentioned. Based on a history of CHF and the patient being treated with Coreg, Lasix and Dobutamine can you please clarify the type of CHF? Please provide further specificity regarding CHF. ACUITY: ( ) Acute (x ) Chronic ( ) Acute on Chronic ( ) Clinically unable to determine TYPE: ( x) Systolic (HFrEF - heart failure with reduced systolic function/EF) ( ) Diastolic (HFpEF - heart failure with preserved systolic function/EF) ( ) Combined Systolic/Diastolic ( ) Other, please specify: ( ) Clinically unable to determine ( ) Past Medical History of Systolic CHF ( ) Past Medical History of Diastolic CHF (x ) Clinically unable to determine COMMENTS: PLEASE ALSO DOCUMENT RESPONSE IN PROGRESS NOTES AND/OR DISCHARGE SUMMARY Use of terms such as suspected, likely, or probable (associated with a specific diagnosis that is being evaluated, monitored, or treated as if it exists) are acceptable and can be restated in the discharge summary if not ruled out. MTDD
[2017-07-18] MEDS: oxyCODONE/ACETAMINOPHEN 5-325 MG TABLET PO PRN (14:49)
[2017-07-18] MEDS: tiZANidine 4 MG TABLET PO SCH (20:46)
[2017-07-18] MEDS: ROSUVASTATIN 20 MG TABLET PO SCH (20:46)
[2017-07-18] MEDS: AMITRIPTYLINE 50 MG TABLET PO SCH (20:47)
[2017-07-18] MEDS ORDERED: ZOLPIDEM 5 MG TABLET PO ONE (20:57)
--- NOTE | 2017-07-18 22:41 | Cardiology Progress Note ---
I, Elisabet Oviedo, LIBRADO, am scribing for, and in the presence of, Endy Cochran MD 22:40. Assessment and Plan - Time spent with patient Time spent with patient: Greater than 30 minutes (Record review, assessment, and documentation) (1) CAD (coronary artery disease) Status: Chronic Assessment and plan: SEE PLAN LISTED BELOW Blood pressure remains low We'll reduce spironolactone to 25 mg one quarter tablet daily-hold if systolic blood pressure less than 105 Once his blood pressure is better we will re-add a low-dose of carvedilol Continue amiodarone for now because of arrhythmias Watch blood pressure carefully I discussed the patient's management with the patient and his . Current Visit: No Qualifiers: Coronary Disease-Associated Artery/Lesion type: [place] artery [place] vs. transplanted heart: [place] heart Associated angina: without angina Qualified Code(s): I25.10 - Atherosclerotic heart disease of [place] coronary artery without angina pectoris (2) Status post coronary artery bypass grafting Status: Chronic Assessment and plan: SEE PLAN LISTED BELOW Current Visit: Yes (3) Hypotension Status: Acute Assessment and plan: SEE PLAN LISTED BELOW Current Visit: Yes (4) Ischemic cardiomyopathy Status: Chronic Assessment and plan: SEE PLAN LISTED BELOW Current Visit: Yes (5) Dyslipidemia Status: Chronic Assessment and plan: SEE PLAN LISTED BELOW Current Visit: Yes (6) Ventricular arrhythmia Status: Acute Assessment and plan: SEE PLAN LISTED BELOW Current Visit: Yes Cardiology - PN: Subj Interval history: [employer]: DR. COCHRAN SUMMARY: Mr. Crews, 67WM, was admitted for elective CABG July 16, 2017. Underwent elective cardiac catheterization July 04, 2017 which revealed severe three-vessel CAD, EF 15%. Dr. Lugo performed CABG with FOX to LAD, SVG to OM. He tolerated the procedure well. Extubated easily same day of surgery. JULY 17, 2017: This morning, Mr. Crews is sitting up in the bedside chair. He does have some chest soreness but in general denies having chest heaviness or tightness. Reports his breathing is coming easily, nonlabored. Chest tubes have been removed. Currently on low-dose Dobutamine to support his blood pressure and hopefully will wean this off today. Amiodarone was initiated yesterday to decrease of ventricular arrhythmias. This to is stable. Encouraged incentive spirometry today. Aspirin continues. When able, will introduce Intresto. Hopefully we can incorporate betablocker rather than Norvasc and will try to do so during hospital stay. At this time, however, favor Amiodorone. Start lipid lowering agent. Further discuss with Dr. Cochran and await additional recommendations. JULY 18, 2017: Mr. Crews is sitting up on the side of bed this morning, and is ambulating in the room, sitting in a chair. His night was uneventful. He reports mild soreness to surgical incisions, but overall he is tolerating this well. The patient was transferred to telemetry floor for continuous monitoring. He reports using incentive spirometry regularly, lungs are clear today. Continue Amiodarone and Crestor, will initiate low dose beta jennifer when blood pressure allows, also Entresto. Infiltrates noted on chest xray. IMPRESSION/PLAN: 1. CAD - S/P CABG POD 2. Continue ASA & Crestor, will initiate beta jennifer & ARB when BP allows. Cardiac rehab will be consulted. 2. ISCHEMIC CARDIOMYOPATHY - EF 15%. Will closely monitor telemetry for ventricular arrhythmias. Weights inaccurate on I & O, clinically he does not appear to be overloaded despite a 12# weight increase. 3. DYSLIPIDEMIA - continue lipid-lowering agent. No need to repeat lipid profile as there is a recent profile done in clinic. 4. VENTRICULAR ARRHYTHMIA - continue Amiodarone, continue to monitor no evidence of arrythmia on telemetry.Will adjust medications accordingly during hospital stay. 5. HYPOTENSION - suspect this is transient, plan to initiate antihypertensives as blood pressure allows. Exam (Progress Note) - Constitutional Vitals: Period Temp Pulse Resp BP Sys/Mcgrath Pulse Ox Last 24 Hr 97.1 F-98.6 F 65-78 12-20 93-104/45-68 90-96 Exam: General: Appears well with no apparent distress. Pleasant and cooperative. Appears comfortable. HEENT: PERRL, normocephalic, atraumatic. Mucous membranes moist. No jaundice noted. Conjunctiva moist and clear, sclerae anicteric. Neck: No JVD, no thyromegaly or lymphadenopathy noted. No carotid bruit appreciated. Cardiac: Regular rate and rhythm. No murmur rub or gallop. PMI is nondisplaced. Lungs: Clear to auscultation without accessory muscle use to assist the respiratory pattern. Oxygen in use via nasal cannula. Abdomen: Soft, bowel sounds normoactive. Nontender and nondistended. No abdominal bruit or thrill noted. No masses noted. Musculoskeletal: No fluid collection. Decreased range of motion is noted. Surgical dressings intact to midsternum and left lower leg. Extremities: No clubbing, cyanosis noted. No edema noted. Upper extremity pulses 2+. Lower extremity pulses 2+. Capillary refill less than 3 seconds. Skin: Warm and dry. No unusual lesions or rashes. No skin breakdown appreciated. Neuro: Awake, alert and oriented 3. Moves all extremities well without hemiparesis or paralysis. No essential tremor is appreciated. Result/EKG - Labs CBC & BMP: 07/18/17 Unknown 07/18/17 Unknown Lab Results: I have reviewed the past 24 hour labs Labs: Laboratory Results - last 24 hr 07/15/17 07/17/17 07/17/17 09:31 08:31 09:20 WBC RBC Hgb Hct MCV MCH MCHC RDW Plt Count MPV Neut % (Auto) Lymph % (Auto) [place] % (Auto) Eos % (Auto) Baso % (Auto) Neut # (Auto) Lymph # (Auto) [place] # (Auto) Eos # (Auto) Baso # (Auto) Total Counted Immature Gran % Nucleated RBC % Immature Gran # Segmented Neutrophils Band Neutrophils Lymphocytes Monocytes Nucleated RBCs # Platelet Estimate Immature Plt Fraction Hypochromasia Morphology Comment Sodium Potassium 4.0 Chloride Carbon Dioxide Anion Gap BUN Creatinine GFR Calculation BUN/Creatinine Ratio Glucose POC Glucose 160 H Calculated Osmolality Calcium Magnesium Total Bilirubin Direct Bilirubin Indirect Bilirubin AST ALT Alkaline Phosphatase Total Creatine Kinase CK-MB (CK-2) CK and CKMB Interp Troponin I Total Protein Albumin Globulin Albumin/Globulin Ratio Crossmatch See Detail 07/17/17 07/17/17 07/17/17 13:08 13:27 16:26 WBC RBC Hgb Hct MCV MCH MCHC RDW Plt Count MPV Neut % (Auto) Lymph % (Auto) [place] % (Auto) Eos % (Auto) Baso % (Auto) Neut # (Auto) Lymph # (Auto) [place] # (Auto) Eos # (Auto) Baso # (Auto) Total Counted Immature Gran % Nucleated RBC % Immature Gran # Segmented Neutrophils Band Neutrophils Lymphocytes Monocytes Nucleated RBCs # Platelet Estimate Immature Plt Fraction Hypochromasia Morphology Comment Sodium Potassium Chloride Carbon Dioxide Anion Gap BUN Creatinine GFR Calculation BUN/Creatinine Ratio Glucose POC Glucose 141 H 220 H Calculated Osmolality Calcium Magnesium Total Bilirubin Direct Bilirubin Indirect Bilirubin AST ALT Alkaline Phosphatase Total Creatine Kinase 376 H CK-MB (CK-2) 10.8 H CK and CKMB Interp 2.9 Troponin I 1.660 H D Total Protein Albumin Globulin Albumin/Globulin Ratio Crossmatch 07/17/17 07/18/17 07/18/17 19:10 00:45 04:34 WBC RBC Hgb Hct MCV MCH MCHC RDW Plt Count MPV Neut % (Auto) Lymph % (Auto) [place] % (Auto) Eos % (Auto) Baso % (Auto) Neut # (Auto) Lymph # (Auto) [place] # (Auto) Eos # (Auto) Baso # (Auto) Total Counted Immature Gran % Nucleated RBC % Immature Gran # Segmented Neutrophils Band Neutrophils Lymphocytes Monocytes Nucleated RBCs # Platelet Estimate Immature Plt Fraction Hypochromasia Morphology Comment Sodium Potassium Chloride Carbon Dioxide Anion Gap BUN Creatinine GFR Calculation BUN/Creatinine Ratio Glucose POC Glucose 212 H 191 H 185 H Calculated Osmolality Calcium Magnesium Total Bilirubin Direct Bilirubin Indirect Bilirubin AST ALT Alkaline Phosphatase Total Creatine Kinase CK-MB (CK-2) CK and CKMB Interp Troponin I Total Protein Albumin Globulin Albumin/Globulin Ratio Crossmatch 07/18/17 07/18/17 07/18/17 07:19 Unknown Unknown WBC 16.3 H RBC 4.03 Hgb 11.8 L Hct 34.1 L MCV 84.6 L MCH 29 MCHC 34.6 RDW 13.4 Plt Count 100 L MPV 10.8 Neut % (Auto) 86.6 H Lymph % (Auto) 4.9 L [place] % (Auto) 7.6 Eos % (Auto) 0.0 Baso % (Auto) 0.1 Neut # (Auto) 14.1 H Lymph # (Auto) 0.8 L [place] # (Auto) 1.2 H Eos # (Auto) 0.0 Baso # (Auto) 0.0 Total Counted 100 Immature Gran % 0.8 Nucleated RBC % 0.0 Immature Gran # 0.13 Segmented Neutrophils 88 H Band Neutrophils 2 Lymphocytes 2 L Monocytes 8 Nucleated RBCs # 0.00 Platelet Estimate Decreased Immature Plt Fraction 0.0 Hypochromasia 1+ Morphology Comment Sodium 140 Potassium 4.5 Chloride 107 Carbon Dioxide 28 Anion Gap 9.5 BUN 32 H Creatinine 1.00 GFR Calculation 93 BUN/Creatinine Ratio 32.00 H Glucose 156 H POC Glucose 155 H Calculated Osmolality 288.4 Calcium 8.5 Magnesium 2.4 Total Bilirubin 0.50 Direct Bilirubin 0.230 H Indirect Bilirubin 0.3 AST 26 ALT 28 Alkaline Phosphatase 38 L Total Creatine Kinase 370 H CK-MB (CK-2) 6.5 H CK and CKMB Interp 1.8 Troponin I 1.110 H D Total Protein 5.5 L Albumin 3.4 Globulin 2.1 L Albumin/Globulin Ratio 1.6 Crossmatch - Diagnostic Findings Procedure: Chest x-ray: report reviewed by me - EKG EKG results: interpreted by me, sinus rhythm Quality Measures - VTE Contraindication to Pharmacological VTE Prophylaxis: High Risk of Bleeding Specialty Discharge - Follow Up or Referrals Follow up with: Endy Cochran MD [Physician] - Sammie Redd Dale, MD, personally performed the services described in this documentation, ascribed by Elisabet Oviedo NP in my presence, and it is both accurate and complete .
[2017-07-19] MEDS: KETOROLAC 30 MG/1 ML VIAL IV SCH ×4 (04:19→21:16)
[2017-07-19 04:41] LABS: Basophils % 0.1 % (0.0-0.8); Eosinophils % 0.1 % (0.00-10.9); Hematocrit 33.5 VOL% (42.0-52.0); Hemoglobin 11.5 GM/DL (14.0-18.0); Immature Granulocytes Absolute 0.14 #; Lymphocytes # 1.2 10*3/uL (1.4-4.0); Lymphocytes % 8.7 % (21.2-54.2); Mean Corpuscular HGB Conc 34.3 GM/DL (32-36); Mean Corpuscular Hemoglobin 29 PG (27-34); Monocytes # 1.2 10*3/uL (0.11-0.8); Monocytes % 8.7 % (1.7-12.7); Neutrophils # 11.5 10*3/uL (1.4-7.4); Neutrophils % 81.4 % (38.7-73.9); Platelet Count 103 T/CUMM (130-400); Red Blood Count 3.99 MC/CUMM (3.8-5.5); Red Cell Distribution Width 13.5 % (9.3-17.3); White Blood Count 14.2 T/CUMM (4-12)
[2017-07-19 05:19] LABS: Alanine Aminotransferase 43 U/L (16-61); Albumin 3.2 G/DL (3.4-5.0); Alkaline Phosphatase 43 U/L (45-117); Aspartate Amino Transferase 32 U/L (0-37); Blood Urea Nitrogen 31 MG/DL (7-18); Calcium 8.4 MG/DL (8.5-10.1); Glucose 108 MG/DL (74-106); Magnesium 2.4 MG/DL (1.8-2.4); Osmolality,Calculated 288.3 MOS/KG (273-304); Potassium 4.5 MMOL/L (3.5-5.1); Sodium 141 MMOL/L (136-145); Total Protein 5.4 G/DL (6.4-8.3)
[2017-07-19 05:20] LABS: Troponin I Only 0.878 NG/ML (0.00-0.045)
--- NOTE | 2017-07-19 06:15 | Cardiothoracic Progress Note ---
Cardiothoracic Subjective Interval history: Patient had a comfortable night. Vital signs have been stable and his blood pressure is trending upward. He remains in sinus rhythm. He is breathing comfortably and his chest x-ray appears to be clearing. He has an elevated right hemidiaphragm but this was present preoperatively. Urine output has been satisfactory and his creatinine is within normal limits. He is gradually increasing his activities. Overall his progress appears satisfactory. Exam (Progress Note) - Constitutional Vitals: Period Temp Pulse Resp BP Sys/Mcgrath Pulse Ox Last 24 Hr 97.7 F-99.4 F 72-87 16-20 93-113/59-65 90-96 Result/EKG - Labs CBC & BMP: 07/19/17 04:10 07/19/17 04:10 Labs: Laboratory Results - last 24 hr 07/18/17 07/18/17 07/18/17 07:19 11:31 16:22 WBC RBC Hgb Hct MCV MCH MCHC RDW Plt Count MPV Neut % (Auto) Lymph % (Auto) [place] % (Auto) Eos % (Auto) Baso % (Auto) Neut # (Auto) Lymph # (Auto) [place] # (Auto) Eos # (Auto) Baso # (Auto) Immature Gran % Nucleated RBC % Immature Gran # Nucleated RBCs # Immature Plt Fraction Sodium Potassium Chloride Carbon Dioxide Anion Gap BUN Creatinine GFR Calculation BUN/Creatinine Ratio Glucose POC Glucose 155 H 147 H 228 H Calculated Osmolality Calcium Magnesium Total Bilirubin Direct Bilirubin Indirect Bilirubin AST ALT Alkaline Phosphatase Total Creatine Kinase CK-MB (CK-2) Troponin I Total Protein Albumin Globulin Albumin/Globulin Ratio 07/18/17 07/19/17 07/19/17 21:09 04:10 04:10 WBC 14.2 H RBC 3.99 Hgb 11.5 L Hct 33.5 L MCV 84.0 L MCH 29 MCHC 34.3 RDW 13.5 Plt Count 103 L MPV 11.0 Neut % (Auto) 81.4 H Lymph % (Auto) 8.7 L [place] % (Auto) 8.7 Eos % (Auto) 0.1 Baso % (Auto) 0.1 Neut # (Auto) 11.5 H Lymph # (Auto) 1.2 L [place] # (Auto) 1.2 H Eos # (Auto) 0.0 Baso # (Auto) 0.0 Immature Gran % 1.0 Nucleated RBC % 0.0 Immature Gran # 0.14 Nucleated RBCs # 0.00 Immature Plt Fraction 0.0 Sodium 141 Potassium 4.5 Chloride 106 Carbon Dioxide 31 Anion Gap 8.5 BUN 31 H Creatinine 1.10 GFR Calculation 83 BUN/Creatinine Ratio 28.00 H Glucose 108 H POC Glucose 170 H Calculated Osmolality 288.3 Calcium 8.4 L Magnesium 2.4 Total Bilirubin 1.30 H Direct Bilirubin 0.300 H Indirect Bilirubin 1.0 AST 32 ALT 43 Alkaline Phosphatase 43 L Total Creatine Kinase 250 D CK-MB (CK-2) 2.9 Troponin I 0.878 H D Total Protein 5.4 L Albumin 3.2 L Globulin 2.2 L Albumin/Globulin Ratio 1.4 Quality Measures - VTE Contraindication to Pharmacological VTE Prophylaxis: High Risk of Bleeding Specialty Discharge - Follow Up or Referrals Follow up with: Endy Cochran MD [Physician] -
--- NOTE | 2017-07-19 07:08 | Physician Query Form ---
CLICK EDIT DOCUMENT TO SELECT QUERY ANSWER --> OK --> SIGN Angie West RN, CCDS Certified Clinical Supervisor [employer] W) [phone] (f) [phone] [email or web address] PROVIDERS: Make your selection(s) from the choices in EACH section by typing an "x" and enter comments in the comment section. Please use your independent medical judgment in providing your response. This request does not imply that any particular answer is desired or expected. CLINICAL INDICATORS: (Providers should not edit this section) The medical record indicates that the patient was admitted for heart surgery, Ischemic cardiomyopathy EF 15%, AND a history of CHF is mentioned. Based on a history of CHF and the patient being treated with Coreg, Lasix and Dobutamine can you please clarify the type of CHF? Please provide further specificity regarding CHF. ACUITY: ( ) Acute ( ) Chronic ( ) Acute on Chronic ( ) Clinically unable to determine TYPE: ( ) Systolic (HFrEF - heart failure with reduced systolic function/EF) ( ) Diastolic (HFpEF - heart failure with preserved systolic function/EF) ( ) Combined Systolic/Diastolic ( ) Other, please specify: ( ) Clinically unable to determine ( ) Past Medical History of Systolic CHF ( ) Past Medical History of Diastolic CHF ( ) Clinically unable to determine COMMENTS: PLEASE ALSO DOCUMENT RESPONSE IN PROGRESS NOTES AND/OR DISCHARGE SUMMARY Use of terms such as suspected, likely, or probable (associated with a specific diagnosis that is being evaluated, monitored, or treated as if it exists) are acceptable and can be restated in the discharge summary if not ruled out. MTDD
--- NOTE | 2017-07-19 07:53 | XRay Report ---
Portable chest Date: 07/19/2017 Clinical history: Shortness of breath Comparison: 07/18/2017 Technique: Portable AP sitting chest Findings: The heart appears smaller in size with recent median sternotomy. Stable right IJ CVP line. Reduced parenchymal findings in the lungs with persistent relative elevation of the right hemidiaphragm. Smaller pleural effusions. Minimal subcutaneous emphysema. Degenerative changes are noted. Impression: Recent median sternotomy with improved edema/atelectasis. Persistent relative elevation of the right hemidiaphragm with smaller pleural effusions. PROCEDURE INTERPRETED AT [facility] DEPARTMENT OF RADIOLOGY Final Report Signed by: Dr. Minnie Lindsay
[2017-07-19] MEDS: FERROUS SULFATE 325 MG TABLET PO SCH (09:18)
[2017-07-19] MEDS: CHOLECALCIFEROL 1,000 UNIT TABLET PO SCH ×2 (09:19→21:14)
[2017-07-19] MEDS: PANTOPRAZOLE 40 MG TABLET PO SCH (09:20)
[2017-07-19] MEDS: MONTELUKAST 10 MG TABLET PO SCH (09:20)
[2017-07-19] MEDS: AMIODARONE 200 MG TABLET PO SCH ×2 (09:20→21:15)
[2017-07-19] MEDS: MULTIVITAMIN (BEROCCA) TABLET PO SCH (09:21)
[2017-07-19] MEDS: OMEGA 3 ACID ETHYL ESTERS 1 GM CAPSULE PO SCH ×2 (09:21→21:12)
[2017-07-19] MEDS: ASPIRIN EC 325 MG TABLET PO SCH (09:22)
[2017-07-19] MEDS: SPIRONOLACTONE 25 MG TABLET PO SCH ×2 (09:23→21:16)
[2017-07-19] MEDS: traMADol 50 MG TABLET PO SCH ×2 (12:03→21:15)
[2017-07-19] MEDS: DOCUSATE SODIUM 100 MG CAPSULE PO SCH (12:03)
[2017-07-19] MEDS: GABAPENTIN 400 MG CAPSULE PO SCH ×3 (12:03→21:14)
[2017-07-19] MEDS: CHLORHEXIDINE 0.12% ORAL RINSE 60 ML BOTTLE SWISH/SPIT SCH ×2 (12:03→21:17)
[2017-07-19] MEDS: CARVEDILOL 3.125 MG TABLET PO SCH ×2 (15:36→21:14)
[2017-07-19] MEDS: ROSUVASTATIN 20 MG TABLET PO SCH (21:13)
[2017-07-19] MEDS: tiZANidine 4 MG TABLET PO SCH (21:15)
[2017-07-19] MEDS: AMITRIPTYLINE 50 MG TABLET PO SCH (21:15)
--- NOTE | 2017-07-19 23:04 | Cardiology Progress Note ---
I, Elisabet Oviedo, LIBRADO, am scribing for, and in the presence of, Endy Cochran MD 23:02. Assessment and Plan (1) CAD (coronary artery disease) Status: Chronic Assessment and plan: SEE PLAN LISTED BELOW Blood pressure is better. We are starting a low-dose of carvedilol 3.125 mg p.o. twice daily I discussed with the patient and his regarding using a LifeVest when he goes home. Ultimately, 90 days from now, if his LV function is not improved adequately we should consider a defibrillator They are considering this plan Current Visit: No Qualifiers: Coronary Disease-Associated Artery/Lesion type: [place] artery [place] vs. transplanted heart: [place] heart Associated angina: without angina Qualified Code(s): I25.10 - Atherosclerotic heart disease of [place] coronary artery without angina pectoris (2) Status post coronary artery bypass grafting Status: Chronic Assessment and plan: SEE PLAN LISTED BELOW Current Visit: Yes (3) Hypotension Status: Acute Assessment and plan: SEE PLAN LISTED BELOW Current Visit: Yes (4) Ischemic cardiomyopathy Status: Chronic Assessment and plan: SEE PLAN LISTED BELOW Current Visit: Yes (5) Dyslipidemia Status: Chronic Assessment and plan: SEE PLAN LISTED BELOW Current Visit: Yes (6) Ventricular arrhythmia Status: Acute Assessment and plan: SEE PLAN LISTED BELOW Current Visit: Yes Cardiology - PN: Subj Interval history: BALLOON DESIGN PRINTER: DR. COCHRAN SUMMARY: Mr. Crews, 67WM, was admitted for elective CABG July 16, 2017. Underwent elective cardiac catheterization July 04, 2017 which revealed severe three-vessel CAD, EF 15%. Dr. Lugo performed CABG with FOX to LAD, SVG to OM. He tolerated the procedure well. Extubated easily same day of surgery. JULY 19, 2017: POD #3. Mr. Crews is sitting up on the side of bed this morning. He reports mild soreness to surgical incisions and to mid thoracic spine. Encourage incentive spirometry use. Will initiate low dose beta jennifer today and monitor BP closely, it has responded to decreasing Spironolactone. Systolic blood pressure in the 110-116 range today. Sinus rhythm noted on telemetry strips without evidence of arrhythmia. We will continue amiodarone. Chest x-ray reveals improved atelectasis, persistent elevation of right hemidiaphragm, smaller pleural effusions. Patient states he slept well last night. IMPRESSION/PLAN: 1. CAD - S/P CABG POD #3. Continue ASA & Crestor, will initiate low-dose carvedilol, cardiac rehab initiated. 2. ISCHEMIC CARDIOMYOPATHY - EF 15%. Will closely monitor telemetry for ventricular arrhythmias. Weights inaccurate on I & O, clinically he does not appear to be overloaded despite a 12# weight increase. 3. DYSLIPIDEMIA - continue lipid-lowering agent. No need to repeat lipid profile as there is a recent profile done in clinic. 4. VENTRICULAR ARRHYTHMIA - continue Amiodarone, continue to monitor no evidence of arrythmia on telemetry. 5. HYPOTENSION -improved with decrease spironolactone, continue to monitor. Exam (Progress Note) - Constitutional Vitals: Period Temp Pulse Resp BP Sys/Mcgrath Pulse Ox Last 24 Hr 97.9 F-99.4 F 73-87 18-20 97-116/59-69 90-96 Exam: General: Appears well with no apparent distress. Pleasant and cooperative. Appears comfortable. HEENT: PERRL, normocephalic, atraumatic. Mucous membranes moist. No jaundice noted. Conjunctiva moist and clear, sclerae anicteric. Neck: No JVD, no thyromegaly or lymphadenopathy noted. No carotid bruit appreciated. Cardiac: Regular rate and rhythm. No murmur rub or gallop. PMI is nondisplaced. Lungs: Bilateral rhonchi, no accessory muscle use to assist the respiratory pattern. Oxygen in use via nasal cannula. Abdomen: Soft, bowel sounds normoactive. Nontender and nondistended. No abdominal bruit or thrill noted. No masses noted. Musculoskeletal: No fluid collection. Decreased range of motion is noted. Surgical dressings intact to midsternum and left lower leg. Extremities: No clubbing, cyanosis noted. No edema noted. Upper extremity pulses 2+. Lower extremity pulses 2+. Capillary refill less than 3 seconds. Skin: Warm and dry. No unusual lesions or rashes. No skin breakdown appreciated. Neuro: Awake, alert and oriented 3. Moves all extremities well without hemiparesis or paralysis. No essential tremor is appreciated. Result/EKG - Labs CBC & BMP: 07/19/17 04:10 07/19/17 04:10 Lab Results: I have reviewed the past 24 hour labs Labs: Laboratory Results - last 24 hr 07/18/17 07/18/17 07/18/17 11:31 16:22 21:09 WBC RBC Hgb Hct MCV MCH MCHC RDW Plt Count MPV Neut % (Auto) Lymph % (Auto) [place] % (Auto) Eos % (Auto) Baso % (Auto) Neut # (Auto) Lymph # (Auto) [place] # (Auto) Eos # (Auto) Baso # (Auto) Immature Gran % Nucleated RBC % Immature Gran # Nucleated RBCs # Immature Plt Fraction Sodium Potassium Chloride Carbon Dioxide Anion Gap BUN Creatinine GFR Calculation BUN/Creatinine Ratio Glucose POC Glucose 147 H 228 H 170 H Calculated Osmolality Calcium Magnesium Total Bilirubin Direct Bilirubin Indirect Bilirubin AST ALT Alkaline Phosphatase Total Creatine Kinase CK-MB (CK-2) Troponin I Total Protein Albumin Globulin Albumin/Globulin Ratio 07/19/17 07/19/17 07/19/17 04:10 04:10 07:44 WBC 14.2 H RBC 3.99 Hgb 11.5 L Hct 33.5 L MCV 84.0 L MCH 29 MCHC 34.3 RDW 13.5 Plt Count 103 L MPV 11.0 Neut % (Auto) 81.4 H Lymph % (Auto) 8.7 L [place] % (Auto) 8.7 Eos % (Auto) 0.1 Baso % (Auto) 0.1 Neut # (Auto) 11.5 H Lymph # (Auto) 1.2 L [place] # (Auto) 1.2 H Eos # (Auto) 0.0 Baso # (Auto) 0.0 Immature Gran % 1.0 Nucleated RBC % 0.0 Immature Gran # 0.14 Nucleated RBCs # 0.00 Immature Plt Fraction 0.0 Sodium 141 Potassium 4.5 Chloride 106 Carbon Dioxide 31 Anion Gap 8.5 BUN 31 H Creatinine 1.10 GFR Calculation 83 BUN/Creatinine Ratio 28.00 H Glucose 108 H POC Glucose 206 H Calculated Osmolality 288.3 Calcium 8.4 L Magnesium 2.4 Total Bilirubin 1.30 H Direct Bilirubin 0.300 H Indirect Bilirubin 1.0 AST 32 ALT 43 Alkaline Phosphatase 43 L Total Creatine Kinase 250 D CK-MB (CK-2) 2.9 Troponin I 0.878 H D Total Protein 5.4 L Albumin 3.2 L Globulin 2.2 L Albumin/Globulin Ratio 1.4 - Diagnostic Findings Procedure: Chest x-ray: report reviewed by me - EKG EKG results: sinus rhythm Quality Measures - VTE Contraindication to Pharmacological VTE Prophylaxis: High Risk of Bleeding Specialty Discharge - Follow Up or Referrals Follow up with: Endy Cochran MD [Physician] - Sammie Redd Dale, MD, personally performed the services described in this documentation, ascribed by Elisabet Oviedo NP in my presence, and it is both accurate and complete .
[2017-07-20] MEDS: DOBUTamine 500 MG/250 ML PREMIX IV SCH (03:11)
[2017-07-20] MEDS: KETOROLAC 30 MG/1 ML VIAL IV SCH ×2 (03:12→09:18)
[2017-07-20] MEDS: OMEGA 3 ACID ETHYL ESTERS 1 GM CAPSULE PO SCH ×2 (09:00→21:09)
[2017-07-20] MEDS: CHOLECALCIFEROL 1,000 UNIT TABLET PO SCH ×2 (09:00→21:10)
[2017-07-20] MEDS: MONTELUKAST 10 MG TABLET PO SCH (09:12)
[2017-07-20] MEDS: PANTOPRAZOLE 40 MG TABLET PO SCH (09:12)
[2017-07-20] MEDS: FERROUS SULFATE 325 MG TABLET PO SCH (09:12)
[2017-07-20] MEDS: DOCUSATE SODIUM 100 MG CAPSULE PO SCH (09:12)
[2017-07-20] MEDS: MULTIVITAMIN (BEROCCA) TABLET PO SCH (09:12)
[2017-07-20] MEDS: AMIODARONE 200 MG TABLET PO SCH ×2 (09:13→21:11)
[2017-07-20] MEDS: traMADol 50 MG TABLET PO SCH ×2 (09:13→21:10)
[2017-07-20] MEDS: ASPIRIN EC 325 MG TABLET PO SCH (09:13)
[2017-07-20] MEDS: SPIRONOLACTONE 25 MG TABLET PO SCH ×2 (09:13→21:11)
[2017-07-20] MEDS: CARVEDILOL 3.125 MG TABLET PO SCH ×2 (09:14→21:10)
[2017-07-20] MEDS: CHLORHEXIDINE 0.12% ORAL RINSE 60 ML BOTTLE SWISH/SPIT SCH ×2 (09:17→21:12)
[2017-07-20] MEDS: GABAPENTIN 400 MG CAPSULE PO SCH ×3 (09:17→21:10)
--- NOTE | 2017-07-20 09:42 | Cardiothoracic Progress Note ---
Cardiothoracic Subjective Interval history: Patient looks and feels okay. Vital signs are stable and is breathing comfortably. He is gradually increasing his activities as tolerated. Hopefully he will be ready to go home sometime this weekend. Exam (Progress Note) - Constitutional Vitals: Period Temp Pulse Resp BP Sys/Mcgrath Pulse Ox Last 24 Hr 96.5 F-99.3 F 66-85 16-22 104-168/67-80 92-97 Result/EKG - Labs CBC & BMP: 07/19/17 04:10 07/19/17 04:10 Labs: Laboratory Results - last 24 hr 07/19/17 07/19/17 11:16 17:33 POC Glucose 131 H 137 H Quality Measures - VTE Contraindication to Pharmacological VTE Prophylaxis: High Risk of Bleeding Specialty Discharge - Follow Up or Referrals Follow up with: Endy Cochran MD [Physician] -
[2017-07-20] MEDS: AMITRIPTYLINE 50 MG TABLET PO SCH (21:10)
[2017-07-20] MEDS: ZALEPLON 5 MG CAPSULE PO PRN (21:10)
[2017-07-20] MEDS: ROSUVASTATIN 20 MG TABLET PO SCH (21:10)
[2017-07-20] MEDS: tiZANidine 4 MG TABLET PO SCH (21:11)
[2017-07-20] MEDS: MORPHINE 2 MG/1 ML SYRINGE IV PRN (21:41)
--- NOTE | 2017-07-20 23:44 | Cardiology Progress Note ---
Preet Redd Lesley, LIBRADO, am scribing for, and in the presence of, Endy Cochran MD 23:43. Assessment and Plan - Time spent with patient Time spent with patient: Greater than 30 minutes (Record review, assessment, and documentation) (1) Ischemic cardiomyopathy Status: Chronic Assessment and plan: SEE PLAN LISTED BELOW Current Visit: Yes (2) CAD (coronary artery disease) Status: Chronic Assessment and plan: SEE PLAN LISTED BELOW 07/20/17 Ambulating more Blood pressure is better tolerating low-dose carvedilol Will start of a low-dose of Capoten 6.25 mg by mouth twice a day Improving significantly. Current Visit: No Qualifiers: Coronary Disease-Associated Artery/Lesion type: [place] artery [place] vs. transplanted heart: [place] heart Associated angina: without angina Qualified Code(s): I25.10 - Atherosclerotic heart disease of [place] coronary artery without angina pectoris (3) Status post coronary artery bypass grafting Status: Chronic Assessment and plan: SEE PLAN LISTED BELOW Current Visit: Yes (4) Hypotension Status: Acute Assessment and plan: SEE PLAN LISTED BELOW Current Visit: Yes (5) Dyslipidemia Status: Chronic Assessment and plan: SEE PLAN LISTED BELOW Current Visit: Yes (6) Ventricular arrhythmia Status: Acute Assessment and plan: SEE PLAN LISTED BELOW Current Visit: Yes Cardiology - PN: Subj Interval history: HEAD OF CONSERVATION: DR. COCHRAN SUMMARY: Mr. Crews, 67WM, was admitted for elective CABG July 16, 2017. Underwent elective cardiac catheterization July 04, 2017 which revealed severe three-vessel CAD, EF 15%. Dr. Lugo performed CABG with FOX to LAD, SVG to OM. He tolerated the procedure well. Extubated easily same day of surgery. JULY 20, 2017: POD #4. Monitoring the following stable, chronic conditions: CAD, ischemic cardiomyopathy, and ventricular arrythmia. Mr. Crews is sitting in a chair today. His night was uneventful. Tolerating low dose beta jennifer, BP 110/67 this morning. Sinus rhythm noted on telemetry strips without evidence of arrhythmia. We will continue amiodarone, and consider lifevest upon discharge. Plan to continue to monitor for arrythmias, hypotension which is improving. ROS: denies chest pain no acute distress IMPRESSION/PLAN: 1. CAD - S/P CABG POD #4. Continue ASA & Crestor, tolerating low-dose carvedilol, cardiac rehab initiated. 2. ISCHEMIC CARDIOMYOPATHY - EF 15%. Will closely monitor telemetry for ventricular arrhythmias. Weights inaccurate on I & O, clinically he does not appear to be overloaded despite a 12# weight increase. 3. DYSLIPIDEMIA - continue lipid-lowering agent. No need to repeat lipid profile as there is a recent profile done in clinic. 4. VENTRICULAR ARRHYTHMIA - continue Amiodarone, continue to monitor no evidence of arrythmia on telemetry. Consider lifevest at discharge. 5. HYPOTENSION -improved with decrease spironolactone, continue to monitor. Exam (Progress Note) - Constitutional Vitals: Period Temp Pulse Resp BP Sys/Mcgrath Pulse Ox Last 24 Hr 96.5 F-99.3 F 66-85 16-22 104-168/67-80 92-96 Exam: General: Appears well with no apparent distress. Pleasant and cooperative. Appears comfortable. HEENT: PERRL, normocephalic, atraumatic. Mucous membranes moist. No jaundice noted. Conjunctiva moist and clear, sclerae anicteric. Neck: No JVD, no thyromegaly or lymphadenopathy noted. No carotid bruit appreciated. Cardiac: Regular rate and rhythm. No murmur rub or gallop. PMI is nondisplaced. Lungs: Bilateral rhonchi, no accessory muscle use to assist the respiratory pattern. Oxygen in use via nasal cannula. Abdomen: Soft, bowel sounds normoactive. Nontender and nondistended. No abdominal bruit or thrill noted. No masses noted. Musculoskeletal: No fluid collection. Decreased range of motion is noted. Surgical dressings intact to midsternum and left lower leg. Extremities: No clubbing, cyanosis noted. No edema noted. Upper extremity pulses 2+. Lower extremity pulses 2+. Capillary refill less than 3 seconds. Skin: Warm and dry. No unusual lesions or rashes. No skin breakdown appreciated. Neuro: Awake, alert and oriented 3. Moves all extremities well without hemiparesis or paralysis. No essential tremor is appreciated. Result/EKG - Labs CBC & BMP: 07/19/17 04:10 07/19/17 04:10 Lab Results: I have reviewed the past 24 hour labs Labs: Laboratory Results - last 24 hr 07/19/17 17:33 POC Glucose 137 H - EKG EKG results: interpreted by me, sinus rhythm Quality Measures - VTE Contraindication to Pharmacological VTE Prophylaxis: High Risk of Bleeding Specialty Discharge - Follow Up or Referrals Follow up with: Endy Cochran MD [Physician] - I, Endy Cochran MD, personally performed the services described in this documentation, ascribed by Elisabet Oviedo NP in my presence, and it is both accurate and complete .
[2017-07-21] MEDS: CAPTOPRIL 6.25 MG TABLET PO SCH ×2 (00:45→09:30)
[2017-07-21 04:52] LABS: Basophils # 0.1 10*3/uL (0.0-0.2); Basophils % 0.5 % (0.0-0.8); Eosinophils # 0.9 10*3/uL (0.0-0.87); Eosinophils % 8.1 % (0.00-10.9); Hematocrit 37.4 VOL% (42.0-52.0); Hemoglobin 12.8 GM/DL (14.0-18.0); Immature Granulocytes % 5.9 %; Immature Granulocytes Absolute 0.68 #; Lymphocytes # 2.2 10*3/uL (1.4-4.0); Mean Corpuscular HGB Conc 34.2 GM/DL (32-36); Mean Corpuscular Hemoglobin 29 PG (27-34); Mean Platelet Volume 10.7 FL (9.6-12.0); Monocytes # 1.3 10*3/uL (0.11-0.8); Neutrophils # 6.4 10*3/uL (1.4-7.4); Neutrophils % 55.5 % (38.7-73.9); Platelet Count 149 T/CUMM (130-400); Red Blood Count 4.45 MC/CUMM (3.8-5.5); Red Cell Distribution Width 13.7 % (9.3-17.3); White Blood Count 11.5 T/CUMM (4-12)
[2017-07-21] MEDS: MORPHINE 2 MG/1 ML SYRINGE IV PRN (05:02)
[2017-07-21 05:23] LABS: Calcium 8.5 MG/DL (8.5-10.1); Magnesium 1.9 MG/DL (1.8-2.4); Osmolality,Calculated 285.3 MOS/KG (273-304); Potassium 3.9 MMOL/L (3.5-5.1)
[2017-07-21 05:27] LABS: Alanine Aminotransferase 83 U/L (16-61); Albumin 3.1 G/DL (3.4-5.0); Alkaline Phosphatase 61 U/L (45-117); Aspartate Amino Transferase 39 U/L (0-37); Bilirubin,Indirect 0.5 MG/DL (0.0-1.0); Blood Urea Nitrogen 25 MG/DL (7-18); Calcium 8.3 MG/DL (8.5-10.1); Glucose 108 MG/DL (74-106); Magnesium 1.9 MG/DL (1.8-2.4); Osmolality,Calculated 283.4 MOS/KG (273-304); Potassium 3.9 MMOL/L (3.5-5.1); Sodium 140 MMOL/L (136-145); Total Protein 5.6 G/DL (6.4-8.3)
[2017-07-21 05:37] LABS: Troponin I Only 0.493 NG/ML (0.00-0.045)
[2017-07-21 05:59] LABS: Band Neutrophils 2 % (0-10); Eosinophils 12 % (0-10); Giant Platelets Few; Hypochromasia 1+; Lymphocytes 18 % (20-55); Ovalocytes Slight; Platelet Estimate Normal; Segmented Neutrophils 63 % (50-85); Total Cells Counted 100
[2017-07-21] MEDS: OMEGA 3 ACID ETHYL ESTERS 1 GM CAPSULE PO SCH ×2 (09:29→21:58)
[2017-07-21] MEDS: CHOLECALCIFEROL 1,000 UNIT TABLET PO SCH ×2 (09:29→21:54)
[2017-07-21] MEDS: PANTOPRAZOLE 40 MG TABLET PO SCH (09:29)
[2017-07-21] MEDS: traMADol 50 MG TABLET PO SCH ×2 (09:30→21:55)
[2017-07-21] MEDS: CARVEDILOL 3.125 MG TABLET PO SCH (09:30)
[2017-07-21] MEDS: DOCUSATE SODIUM 100 MG CAPSULE PO SCH (09:30)
[2017-07-21] MEDS: MONTELUKAST 10 MG TABLET PO SCH (09:30)
[2017-07-21] MEDS: GABAPENTIN 400 MG CAPSULE PO SCH ×3 (09:30→21:55)
[2017-07-21] MEDS: ASPIRIN EC 325 MG TABLET PO SCH (09:30)
[2017-07-21] MEDS: AMIODARONE 200 MG TABLET PO SCH ×2 (09:30→21:58)
[2017-07-21] MEDS: FERROUS SULFATE 325 MG TABLET PO SCH (09:30)
[2017-07-21] MEDS: SPIRONOLACTONE 25 MG TABLET PO SCH ×2 (09:31→21:57)
[2017-07-21] MEDS: MULTIVITAMIN (BEROCCA) TABLET PO SCH (09:34)
[2017-07-21] MEDS: CHLORHEXIDINE 0.12% ORAL RINSE 60 ML BOTTLE SWISH/SPIT SCH ×2 (09:38→21:58)
--- NOTE | 2017-07-21 09:42 | Cardiothoracic Progress Note ---
Cardiothoracic Subjective Interval history: Patient looks and feels remarkably well. Vital signs are stable and is breathing comfortably and has been ambulating without difficulty. We will gradually increase his activities as tolerated but he should be ready for discharge before long. Exam (Progress Note) - Constitutional Vitals: Period Temp Pulse Resp BP Sys/Mcgrath Pulse Ox Last 24 Hr 97.2 F-98.7 F 83-93 16-18 114-123/68-84 90-95 Result/EKG - Labs CBC & BMP: 07/21/17 04:20 07/21/17 04:20 Labs: Laboratory Results - last 24 hr 07/21/17 07/21/17 07/21/17 04:20 04:20 04:20 WBC 11.5 RBC 4.45 Hgb 12.8 L Hct 37.4 L MCV 84.0 L MCH 29 MCHC 34.2 RDW 13.7 Plt Count 149 D MPV 10.7 Neut % (Auto) 55.5 Lymph % (Auto) 19.0 L [place] % (Auto) 11.0 Eos % (Auto) 8.1 Baso % (Auto) 0.5 Neut # (Auto) 6.4 Lymph # (Auto) 2.2 [place] # (Auto) 1.3 H Eos # (Auto) 0.9 H Baso # (Auto) 0.1 Total Counted 100 Immature Gran % 5.9 Nucleated RBC % 0.0 Immature Gran # 0.68 Segmented Neutrophils 63 Band Neutrophils 2 Lymphocytes 18 L Monocytes 5 Eosinophils 12 H Nucleated RBCs # 0.00 Platelet Estimate Normal Giant Platelets Few Immature Plt Fraction 0.0 Hypochromasia 1+ Ovalocytes Slight Sodium 140 141 Potassium 3.9 3.9 Chloride 104 104 Carbon Dioxide 30 30 Anion Gap 9.9 10.9 BUN 25 H 25 H Creatinine 1.00 1.00 GFR Calculation 92 92 BUN/Creatinine Ratio 25.00 H 25.00 H Glucose 108 H 108 H Calculated Osmolality 283.4 285.3 Calcium 8.3 L 8.5 Magnesium 1.9 1.9 Total Bilirubin 0.80 Direct Bilirubin 0.270 H Indirect Bilirubin 0.5 AST 39 H ALT 83 H Alkaline Phosphatase 61 Total Creatine Kinase 108 D CK-MB (CK-2) 1.2 Troponin I 0.493 H D Total Protein 5.6 L Albumin 3.1 L Globulin 2.5 Albumin/Globulin Ratio 1.2 Quality Measures - VTE Contraindication to Pharmacological VTE Prophylaxis: High Risk of Bleeding Specialty Discharge - Follow Up or Referrals Follow up with: Endy Cochran MD [Physician] -
[2017-07-21] MEDS: oxyCODONE/ACETAMINOPHEN 5-325 MG TABLET PO PRN ×3 (11:53→21:57)
--- NOTE | 2017-07-21 12:23 | XRay Report ---
History: Shortness of breath Date: 07/21/2017 Study: Chest x-ray PA and lateral Comparison exam: July 19, 2017 The cardiac silhouette is not enlarged. There is no mediastinal mass. The patient is status post prior median sternotomy. There is no pneumothorax. There is mild residual soft tissue emphysema of the right chest wall anteriorly. There is continued mild atelectatic change in the right lung base more so than the left, though this is improved. There is no new or worsening infiltrate. There is some residual mild pleural effusion on the left as before. Osseous structures are similar. The right IJ central line is unchanged. Impression: Persistent but improved right greater than left bibasilar atelectasis PROCEDURE INTERPRETED AT [facility] DEPARTMENT OF RADIOLOGY Final Report Signed by: Dr. Danna Huerta
--- NOTE | 2017-07-21 18:05 | Cardiology Progress Note ---
Assessment and Plan (1) Ischemic cardiomyopathy Status: Chronic Assessment and plan: SEE PLAN LISTED BELOW 07/21/17: His blood pressure became better We will increase carvedilol to 6.25 mg p.o. twice daily We will increase the Capoten to 12 5 mg p.o. twice daily We will consider add some furosemide, if he is not on it. He has bilateral pleural effusions Current Visit: Yes (2) CAD (coronary artery disease) Status: Chronic Assessment and plan: SEE PLAN LISTED BELOW 07/20/17 Ambulating more Blood pressure is better tolerating low-dose carvedilol Will start of a low-dose of Capoten 6.25 mg by mouth twice a day Improving significantly. Current Visit: No Qualifiers: Coronary Disease-Associated Artery/Lesion type: [place] artery [place] vs. transplanted heart: [place] heart Associated angina: without angina Qualified Code(s): I25.10 - Atherosclerotic heart disease of [place] coronary artery without angina pectoris (3) Status post coronary artery bypass grafting Status: Chronic Assessment and plan: SEE PLAN LISTED BELOW Current Visit: Yes (4) Hypotension Status: Acute Assessment and plan: SEE PLAN LISTED BELOW Current Visit: Yes (5) Dyslipidemia Status: Chronic Assessment and plan: SEE PLAN LISTED BELOW Current Visit: Yes (6) Ventricular arrhythmia Status: Acute Assessment and plan: SEE PLAN LISTED BELOW Current Visit: Yes Cardiology - PN: Subj Interval history: No chest pain. Less short of breath. Exam (Progress Note) - Constitutional Vitals: Period Temp Pulse Resp BP Sys/Mcgrath Pulse Ox Last 24 Hr 97.8 F-99.9 F 85-93 16-20 114-133/68-84 90-94 Exam: General: Appears well with no apparent distress. Pleasant and cooperative. Appears comfortable. HEENT: PERRL, normocephalic, atraumatic. Mucous membranes moist. No jaundice noted. Conjunctiva moist and clear, sclerae anicteric. Neck: No JVD, no thyromegaly or lymphadenopathy noted. No carotid bruit appreciated. Cardiac: Regular rate and rhythm. No murmur rub or gallop. PMI is nondisplaced. Lungs: Bilateral rhonchi, no accessory muscle use to assist the respiratory pattern. Oxygen in use via nasal cannula. Abdomen: Soft, bowel sounds normoactive. Nontender and nondistended. No abdominal bruit or thrill noted. No masses noted. Musculoskeletal: No fluid collection. Decreased range of motion is noted. Surgical dressings intact to midsternum and left lower leg. Extremities: No clubbing, cyanosis noted. No edema noted. Upper extremity pulses 2+. Lower extremity pulses 2+. Capillary refill less than 3 seconds. Skin: Warm and dry. No unusual lesions or rashes. No skin breakdown appreciated. Neuro: Awake, alert and oriented 3. Moves all extremities well without hemiparesis or paralysis. No essential tremor is appreciated. Result/EKG - Labs CBC & BMP: 07/21/17 04:20 07/21/17 04:20 Lab Results: I have reviewed the past 24 hour labs Labs: Laboratory Results - last 24 hr 07/21/17 07/21/17 07/21/17 04:20 04:20 04:20 WBC 11.5 RBC 4.45 Hgb 12.8 L Hct 37.4 L MCV 84.0 L MCH 29 MCHC 34.2 RDW 13.7 Plt Count 149 D MPV 10.7 Neut % (Auto) 55.5 Lymph % (Auto) 19.0 L [place] % (Auto) 11.0 Eos % (Auto) 8.1 Baso % (Auto) 0.5 Neut # (Auto) 6.4 Lymph # (Auto) 2.2 [place] # (Auto) 1.3 H Eos # (Auto) 0.9 H Baso # (Auto) 0.1 Total Counted 100 Immature Gran % 5.9 Nucleated RBC % 0.0 Immature Gran # 0.68 Segmented Neutrophils 63 Band Neutrophils 2 Lymphocytes 18 L Monocytes 5 Eosinophils 12 H Nucleated RBCs # 0.00 Platelet Estimate Normal Giant Platelets Few Immature Plt Fraction 0.0 Hypochromasia 1+ Ovalocytes Slight Sodium 140 141 Potassium 3.9 3.9 Chloride 104 104 Carbon Dioxide 30 30 Anion Gap 9.9 10.9 BUN 25 H 25 H Creatinine 1.00 1.00 GFR Calculation 92 92 BUN/Creatinine Ratio 25.00 H 25.00 H Glucose 108 H 108 H Calculated Osmolality 283.4 285.3 Calcium 8.3 L 8.5 Magnesium 1.9 1.9 Total Bilirubin 0.80 Direct Bilirubin 0.270 H Indirect Bilirubin 0.5 AST 39 H ALT 83 H Alkaline Phosphatase 61 Total Creatine Kinase 108 D CK-MB (CK-2) 1.2 Troponin I 0.493 H D Total Protein 5.6 L Albumin 3.1 L Globulin 2.5 Albumin/Globulin Ratio 1.2 - Diagnostic Findings Procedure: Chest x-ray: report reviewed by me - EKG EKG results: interpreted by me Quality Measures - VTE Contraindication to Pharmacological VTE Prophylaxis: High Risk of Bleeding Specialty Discharge - Follow Up or Referrals Follow up with: Endy Cochran MD [Physician] -
[2017-07-21] MEDS: tiZANidine 4 MG TABLET PO SCH (21:55)
[2017-07-21] MEDS: ROSUVASTATIN 20 MG TABLET PO SCH (21:55)
[2017-07-21] MEDS: AMITRIPTYLINE 50 MG TABLET PO SCH (21:57)
[2017-07-21] MEDS: CAPTOPRIL 12.5 MG TABLET PO SCH (21:58)
[2017-07-21] MEDS: ZALEPLON 5 MG CAPSULE PO PRN (21:58)
[2017-07-21] MEDS: CARVEDILOL 6.25 MG TABLET PO SCH (21:58)
[2017-07-22 06:18] LABS: Basophils % 0.3 % (0.0-0.8); Eosinophils # 0.9 10*3/uL (0.0-0.87); Eosinophils % 6.5 % (0.00-10.9); Hematocrit 41.6 VOL% (42.0-52.0); Hemoglobin 14.2 GM/DL (14.0-18.0); Immature Granulocytes % 7.1 %; Immature Granulocytes Absolute 0.97 #; Lymphocytes % 14.6 % (21.2-54.2); Mean Corpuscular HGB Conc 34.1 GM/DL (32-36); Mean Corpuscular Hemoglobin 29 PG (27-34); Mean Corpuscular Volume 84.2 FL (87-102); Mean Platelet Volume 10.3 FL (9.6-12.0); Monocytes # 1.8 10*3/uL (0.11-0.8); Monocytes % 12.9 % (1.7-12.7); Neutrophils # 8.1 10*3/uL (1.4-7.4); Neutrophils % 58.6 % (38.7-73.9); Platelet Count 179 T/CUMM (130-400); Red Blood Count 4.94 MC/CUMM (3.8-5.5); Red Cell Distribution Width 13.8 % (9.3-17.3); White Blood Count 13.8 T/CUMM (4-12)
[2017-07-22 06:40] LABS: Band Neutrophils 1 % (0-10); Eosinophils 4 % (0-10); Giant Platelets Few; Hypochromasia 1+; Lymphocytes 12 % (20-55); Macrocytosis Slight; Platelet Estimate Normal; Polychromasia Slight; Segmented Neutrophils 73 % (50-85); Total Cells Counted 100
[2017-07-22 06:44] LABS: Calcium 8.9 MG/DL (8.5-10.1); Osmolality,Calculated 282.4 MOS/KG (273-304); Potassium 4.4 MMOL/L (3.5-5.1)
[2017-07-22 07:00] LABS: Alanine Aminotransferase 74 U/L (16-61); Albumin 3.3 G/DL (3.4-5.0); Alkaline Phosphatase 69 U/L (45-117); Aspartate Amino Transferase 26 U/L (0-37); Bilirubin,Indirect 0.6 MG/DL (0.0-1.0); Blood Urea Nitrogen 21 MG/DL (7-18); Calcium 8.8 MG/DL (8.5-10.1); Glucose 95 MG/DL (74-106); Osmolality,Calculated 281.4 MOS/KG (273-304); Potassium 4.4 MMOL/L (3.5-5.1); Sodium 140 MMOL/L (136-145); Total Protein 6.1 G/DL (6.4-8.3)
[2017-07-22 07:01] LABS: Troponin I Only 0.246 NG/ML (0.00-0.045)
--- NOTE | 2017-07-22 07:57 | Cardiothoracic Progress Note ---
Cardiothoracic Subjective Interval history: Patient had a good night. Vital signs have been stable and is breathing comfortably. Laboratory and x-ray examinations all look okay. Patient wires have been removed and he is planning on discharge in the morning. Exam (Progress Note) - Constitutional Vitals: Period Temp Pulse Resp BP Sys/Mcgrath Pulse Ox Last 24 Hr 97.4 F-99.9 F 85-97 16-20 116-133/68-75 91-94 Result/EKG - Labs CBC & BMP: 07/22/17 04:27 07/22/17 04:27 Labs: Laboratory Results - last 24 hr 07/22/17 07/22/17 07/22/17 04:27 04:27 04:27 WBC 13.8 H RBC 4.94 Hgb 14.2 Hct 41.6 L MCV 84.2 L MCH 29 MCHC 34.1 RDW 13.8 Plt Count 179 D MPV 10.3 Neut % (Auto) 58.6 Lymph % (Auto) 14.6 L [place] % (Auto) 12.9 H Eos % (Auto) 6.5 Baso % (Auto) 0.3 Neut # (Auto) 8.1 H Lymph # (Auto) 2.0 [place] # (Auto) 1.8 H Eos # (Auto) 0.9 H Baso # (Auto) 0.0 Total Counted 100 Immature Gran % 7.1 Nucleated RBC % 0.0 Immature Gran # 0.97 Segmented Neutrophils 73 Band Neutrophils 1 Lymphocytes 12 L Monocytes 10 Eosinophils 4 Nucleated RBCs # 0.00 Platelet Estimate Normal Giant Platelets Few Immature Plt Fraction 0.0 Polychromasia Slight Hypochromasia 1+ Macrocytosis Slight Sodium 140 140 Potassium 4.4 4.4 Chloride 103 103 Carbon Dioxide 29 29 Anion Gap 12.4 12.4 BUN 21 H 23 H Creatinine 1.00 1.00 GFR Calculation 91 91 BUN/Creatinine Ratio 21.00 H 23.00 H Glucose 95 100 Calculated Osmolality 281.4 282.4 Calcium 8.8 8.9 Magnesium 2.0 2.0 Total Bilirubin 0.90 Direct Bilirubin 0.300 H Indirect Bilirubin 0.6 AST 26 ALT 74 H Alkaline Phosphatase 69 Total Creatine Kinase 64 D CK-MB (CK-2) 1.1 Troponin I 0.246 H D Total Protein 6.1 L Albumin 3.3 L Globulin 2.8 Albumin/Globulin Ratio 1.1 Quality Measures - VTE Contraindication to Pharmacological VTE Prophylaxis: High Risk of Bleeding Specialty Discharge - Follow Up or Referrals Follow up with: Endy Cochran MD [Physician] -
[2017-07-22] MEDS: PANTOPRAZOLE 40 MG TABLET PO SCH (08:46)
[2017-07-22] MEDS: CHOLECALCIFEROL 1,000 UNIT TABLET PO SCH ×2 (08:46→22:40)
[2017-07-22] MEDS: MULTIVITAMIN (BEROCCA) TABLET PO SCH (08:46)
[2017-07-22] MEDS: OMEGA 3 ACID ETHYL ESTERS 1 GM CAPSULE PO SCH ×2 (08:46→22:42)
[2017-07-22] MEDS: FERROUS SULFATE 325 MG TABLET PO SCH (08:46)
[2017-07-22] MEDS: DOCUSATE SODIUM 100 MG CAPSULE PO SCH (08:46)
[2017-07-22] MEDS: ASPIRIN EC 325 MG TABLET PO SCH (08:47)
[2017-07-22] MEDS: traMADol 50 MG TABLET PO SCH ×2 (08:47→22:40)
[2017-07-22] MEDS: AMIODARONE 200 MG TABLET PO SCH ×2 (08:47→22:43)
[2017-07-22] MEDS: MONTELUKAST 10 MG TABLET PO SCH (08:47)
[2017-07-22] MEDS: SPIRONOLACTONE 25 MG TABLET PO SCH ×2 (08:47→22:43)
[2017-07-22] MEDS: GABAPENTIN 400 MG CAPSULE PO SCH ×3 (08:47→22:40)
[2017-07-22] MEDS: CARVEDILOL 6.25 MG TABLET PO SCH (08:47)
[2017-07-22] MEDS: CHLORHEXIDINE 0.12% ORAL RINSE 60 ML BOTTLE SWISH/SPIT SCH ×2 (08:48→22:45)
[2017-07-22] MEDS: CAPTOPRIL 12.5 MG TABLET PO SCH ×2 (08:48→22:40)
[2017-07-22] MEDS: oxyCODONE/ACETAMINOPHEN 5-325 MG TABLET PO PRN ×3 (08:56→22:41)
--- NOTE | 2017-07-22 09:23 | Order Completion Report ---
See report scanned to EMR
--- NOTE | 2017-07-22 11:38 | XRay Report ---
History: Shortness of breath Date: 07/22/2017 Study: Chest x-ray PA and lateral Comparison exam: 07/21/2017 The right IJ central line remains in satisfactory position. There is no pneumothorax. The cardiomediastinal silhouette is unchanged. The pulmonary vasculature is not engorged. There is some continued right greater than left bibasilar atelectasis, though this has improved on the right. There is continued mild greater left bilateral pleural effusion, stable. Osseous structures are similar. Impression: Persistent but improved right basilar atelectasis. No adverse interval worsening PROCEDURE INTERPRETED AT [facility] DEPARTMENT OF RADIOLOGY Final Report Signed by: Dr. Danna Huerta
--- NOTE | 2017-07-22 14:03 | Cardiology Progress Note ---
Assessment and Plan (1) Ischemic cardiomyopathy Status: Chronic Assessment and plan: SEE PLAN LISTED BELOW 07/21/17: His blood pressure became better We will increase carvedilol to 6.25 mg p.o. twice daily We will increase the Capoten to 12 5 mg p.o. twice daily We will consider add some furosemide, if he is not on it. He has bilateral pleural effusions 07/22/17 I rediscussed with the patient and his about a wearable cardioverter defibrillator. They agree. I will consult the people who supply a LifeVest for him We will increase carvedilol to 12.5 mg p.o. twice daily I will follow-up with him, I could further increase dose of medicines as his blood pressure increases. So far is staying borderline low, systolic blood pressure 105-115. He is on good medication for his cardiomyopathy. Current Visit: Yes (2) CAD (coronary artery disease) Status: Chronic Assessment and plan: SEE PLAN LISTED BELOW 07/20/17 Ambulating more Blood pressure is better tolerating low-dose carvedilol Will start of a low-dose of Capoten 6.25 mg by mouth twice a day Improving significantly. Current Visit: No Qualifiers: Coronary Disease-Associated Artery/Lesion type: [place] artery [place] vs. transplanted heart: [place] heart Associated angina: without angina Qualified Code(s): I25.10 - Atherosclerotic heart disease of [place] coronary artery without angina pectoris (3) Status post coronary artery bypass grafting Status: Chronic Assessment and plan: SEE PLAN LISTED BELOW Current Visit: Yes (4) Hypotension Status: Acute Assessment and plan: SEE PLAN LISTED BELOW Current Visit: Yes (5) Dyslipidemia Status: Chronic Assessment and plan: SEE PLAN LISTED BELOW Current Visit: Yes (6) Ventricular arrhythmia Status: Acute Assessment and plan: SEE PLAN LISTED BELOW Current Visit: Yes Cardiology - PN: Subj Interval history: No chest pain. No shortness of breath. He does have back pain. Exam (Progress Note) - Constitutional Vitals: Period Temp Pulse Resp BP Sys/Mcgrath Pulse Ox Last 24 Hr 97.4 F-98.7 F 85-97 16-20 105-133/65-74 91-99 Exam: General: Appears well with no apparent distress. Pleasant and cooperative. Appears comfortable. HEENT: PERRL, normocephalic, atraumatic. Mucous membranes moist. No jaundice noted. Conjunctiva moist and clear, sclerae anicteric. Neck: No JVD, no thyromegaly or lymphadenopathy noted. No carotid bruit appreciated. Cardiac: Regular rate and rhythm. No murmur rub or gallop. PMI is nondisplaced. Lungs: Bilateral rhonchi, no accessory muscle use to assist the respiratory pattern. Oxygen in use via nasal cannula. Abdomen: Soft, bowel sounds normoactive. Nontender and nondistended. No abdominal bruit or thrill noted. No masses noted. Musculoskeletal: No fluid collection. Decreased range of motion is noted. Surgical dressings intact to midsternum and left lower leg. Extremities: No clubbing, cyanosis noted. No edema noted. Upper extremity pulses 2+. Lower extremity pulses 2+. Capillary refill less than 3 seconds. Skin: Warm and dry. No unusual lesions or rashes. No skin breakdown appreciated. Neuro: Awake, alert and oriented 3. Moves all extremities well without hemiparesis or paralysis. No essential tremor is appreciated. Result/EKG - Labs CBC & BMP: 07/22/17 04:27 07/22/17 04:27 Lab Results: I have reviewed the past 24 hour labs Labs: Laboratory Results - last 24 hr 07/22/17 07/22/17 07/22/17 04:27 04:27 04:27 WBC 13.8 H RBC 4.94 Hgb 14.2 Hct 41.6 L MCV 84.2 L MCH 29 MCHC 34.1 RDW 13.8 Plt Count 179 D MPV 10.3 Neut % (Auto) 58.6 Lymph % (Auto) 14.6 L [place] % (Auto) 12.9 H Eos % (Auto) 6.5 Baso % (Auto) 0.3 Neut # (Auto) 8.1 H Lymph # (Auto) 2.0 [place] # (Auto) 1.8 H Eos # (Auto) 0.9 H Baso # (Auto) 0.0 Total Counted 100 Immature Gran % 7.1 Nucleated RBC % 0.0 Immature Gran # 0.97 Segmented Neutrophils 73 Band Neutrophils 1 Lymphocytes 12 L Monocytes 10 Eosinophils 4 Nucleated RBCs # 0.00 Platelet Estimate Normal Giant Platelets Few Immature Plt Fraction 0.0 Polychromasia Slight Hypochromasia 1+ Macrocytosis Slight Sodium 140 140 Potassium 4.4 4.4 Chloride 103 103 Carbon Dioxide 29 29 Anion Gap 12.4 12.4 BUN 21 H 23 H Creatinine 1.00 1.00 GFR Calculation 91 91 BUN/Creatinine Ratio 21.00 H 23.00 H Glucose 95 100 Calculated Osmolality 281.4 282.4 Calcium 8.8 8.9 Magnesium 2.0 2.0 Total Bilirubin 0.90 Direct Bilirubin 0.300 H Indirect Bilirubin 0.6 AST 26 ALT 74 H Alkaline Phosphatase 69 Total Creatine Kinase 64 D CK-MB (CK-2) 1.1 Troponin I 0.246 H D Total Protein 6.1 L Albumin 3.3 L Globulin 2.8 Albumin/Globulin Ratio 1.1 - Diagnostic Findings Procedure: Chest x-ray: report reviewed by me - EKG EKG results: interpreted by me Quality Measures - VTE Contraindication to Pharmacological VTE Prophylaxis: High Risk of Bleeding Specialty Discharge - Follow Up or Referrals Follow up with: Endy Cochran MD [Physician] -
[2017-07-22] MEDS: CARVEDILOL 12.5 MG TABLET PO SCH (22:40)
[2017-07-22] MEDS: ROSUVASTATIN 20 MG TABLET PO SCH (22:41)
[2017-07-22] MEDS: ZALEPLON 5 MG CAPSULE PO PRN (22:42)
[2017-07-22] MEDS: AMITRIPTYLINE 50 MG TABLET PO SCH (22:42)
[2017-07-22] MEDS: MAGNESIUM HYDROXIDE SUSP 30 ML UDCUP PO PRN (22:43)
[2017-07-22] MEDS: tiZANidine 4 MG TABLET PO SCH (22:45)
[2017-07-23] MEDS: ACETAMINOPHEN 325 MG TABLET PO PRN ×3 (01:26→19:20)
--- NOTE | 2017-07-23 06:18 | Discharge Summary ---
Hospital Course - Hospital Course Hospital Course: History of present illness: Patient is a 67-year-old man who is a patient of Dr. Cochran 2. He has been followed with symptoms of congestive heart failure and cardiomyopathy. He underwent cardiac catheterization about 2 weeks prior to admission showing critical coronary disease and severe left ventricular dysfunction. He was advised to have bypass surgery and was admitted for that purpose. Past medical history review of systems social history and family history are documented in his admission note. Hospital course: Patient was taken to surgery and two-vessel grafting was performed with a internal mammary graft to the anterior descending coronary artery and a saphenous vein graft to the obtuse marginal coronary artery. Patient's postoperative course was relatively smooth and uncomplicated especially given his severe degree of preoperative left ventricular dysfunction. Patient was ready for discharge on postop day 7 and will return for follow-up in 1 month. He will be evaluated by Dr. Cochran in 3-4 months with echocardiography to determine left ventricular function and hopefully show some improvement at that time following his bypass surgery. Discharge medications are listed below. Specialty Discharge - Follow Up or Referrals Follow up with: Endy Cochran MD [Physician] - Claudy Lugo MD [Physician] - 1 Month Discharge Plan - Discharge Data Disposition: Disch To Home/Self Care Condition at Discharge: Stable Discharge Diet: advance to your usual diet Activity: resume usual activities as tolerated Hygiene: no restrictions Weight Bearing at Discharge: full weight bearing Driving: not until seen by doctor - Discharge Medications New Amiodarone Tab [Cordarone Tab] 200 mg PO BID #60 tablet Continue Zolpidem Tartrate [Ambien] 10 mg PO BEDTIME Tizanidine HCl [Zanaflex] 2 mg PO BEDTIME Spironolactone [Aldactone] 12.5 mg PO DAILY [place]-3/Dha/Epa/Fish Oil [Fish Oil 1,000 mg Softgel] 2 each PO BID Montelukast Tab [Singulair Tab] 10 mg PO DAILY Lutein 40 mg PO DAILY Garlic 2,000 mg PO BID Gabapentin Cap/Tab [Neurontin Cap/Tab] 400 mg PO TID Fluticasone/Vilanterol [Breo Ellipta 100-25 Mcg INH] 1 puff INH DAILY PRN PRN Reason: Congestion Carvedilol [Coreg] 50 mg PO BID Vitamin B Complex 1 capsule PO DAILY Cholecalciferol (Vitamin D3) [Vitamin D3] 1 capsule PO BID Calcium Carb/Mag Ox/Zinc Sulf [Uwyyjqf-Ukpcklnqw-Dpfp Tablet] 1 tablet PO BID amLODIPine [Norvasc] 5 mg PO DAILY Sacubitril/Valsartan [Entresto 24 mg-26 mg Tablet] 0.5 tablet PO BEDTIME Leg Cramps 1 caplet PO DIRECTED PRN PRN Reason: Leg Cramps Acetaminophen Tab [Tylenol Tab] 325 mg PO BID PRN PRN Reason: Pain Tramadol HCl [Tramadol Tab] 50 mg PO BID [place] Fruit [Saw [place]] 2 mg PO BID Glucosamine/Chondroitin Sulf A [Glucosamine-Chondroitin Cap] 1 each PO BID Furosemide Tab [Lasix Tab] 40 mg PO DAILY Amitriptyline HCl 50 mg PO BEDTIME Aspirin/Calcium Carbonate/Mag [Aspirin Buffered 325 mg Tab] 325 mg PO DAILY - Follow Up or Referral Follow Up: Endy Cochran MD [Physician] - - Forms/Instructions Instructions: Heart Healthy Diet (GEN), Coronary Artery Bypass Graft, Flexo Press Operator (GEN), Sternal Precautions (GEN) Exam - Constitutional Vitals: Period Temp Pulse Resp BP Sys/Mcgrath Pulse Ox Last 24 Hr 97 F-101.4 F 87-104 16-20 96-128/60-76 92-100 Discharge Results Procedures and tests throughout hospitalization: Pending Orders 07/15/17 09:31 Fresh Frozen Plasma Routine Red Blood Cells Leuko Red Routine Single Donor Platelets Routine Type and Screen Routine 07/23/17 04:28 BMP w/ Mg [Basic Metabolic Panel w/Mg] IN AM 07/23/17 05:58 CBC [Comp Blood Count Auto Diff] IN AM Labs on day of discharge: Labs from last 24 hours 07/22/17 07/22/17 07/22/17 04:27 04:27 04:27 WBC 13.8 H RBC 4.94 Hgb 14.2 Hct 41.6 L MCV 84.2 L MCH 29 MCHC 34.1 RDW 13.8 Plt Count 179 D MPV 10.3 Neut % (Auto) 58.6 Lymph % (Auto) 14.6 L [place] % (Auto) 12.9 H Eos % (Auto) 6.5 Baso % (Auto) 0.3 Neut # (Auto) 8.1 H Lymph # (Auto) 2.0 [place] # (Auto) 1.8 H Eos # (Auto) 0.9 H Baso # (Auto) 0.0 Total Counted 100 Immature Gran % 7.1 Nucleated RBC % 0.0 Immature Gran # 0.97 Segmented Neutrophils 73 Band Neutrophils 1 Lymphocytes 12 L Monocytes 10 Eosinophils 4 Nucleated RBCs # 0.00 Platelet Estimate Normal Giant Platelets Few Immature Plt Fraction 0.0 Polychromasia Slight Hypochromasia 1+ Macrocytosis Slight Sodium 140 140 Potassium 4.4 4.4 Chloride 103 103 Carbon Dioxide 29 29 Anion Gap 12.4 12.4 BUN 23 H 21 H Creatinine 1.00 1.00 GFR Calculation 91 91 BUN/Creatinine Ratio 23.00 H 21.00 H Glucose 100 95 Calculated Osmolality 282.4 281.4 Calcium 8.9 8.8 Magnesium 2.0 2.0 Total Bilirubin 0.90 Direct Bilirubin 0.300 H Indirect Bilirubin 0.6 AST 26 ALT 74 H Alkaline Phosphatase 69 Total Creatine Kinase 64 D CK-MB (CK-2) 1.1 Troponin I 0.246 H D Total Protein 6.1 L Albumin 3.3 L Globulin 2.8 Albumin/Globulin Ratio 1.1 DS: Provider Date of admission: 07/15/17 09:03 Primary care physician: Mauro Buchanan DO Attending physician on admission: Claudy Lugo MD Consults: 07/17/17 14:15 Consult to Cardiac Rehabilitation [CONS] Routine Reason for Cardiac Rehabilitation: Other Consult Comment: Post CABG/heart surgery Consult to [facility], Educator [CONS] Routine Reason for Set Up Inspector: Diabetes Education Initial Insulin Education Consult Comment: insulin education Consult to Dietitian [CONS] Routine Reason for Dietitian: Dietary Consult Consult Comment: Cardiac, low salt, low cholesterol diet Consult to Physical Therapy [CONS] Routine Reason for Physical Therapy: Other Consult Comment: CV Rehab 07/22/17 14:37 Consult to Case Mgmt/Social Srvs [CONS] Routine Reason for Case Mgmt/Social Srvs: Discharge Planning Consult Comment: set up pt for lifevest - see Dr. Cochran's message to caregiver. Discharging clinician: Claudy Lugo MD Expected date of discharge: 07/23/17
[2017-07-23 06:27] LABS: Basophils # 0.1 10*3/uL (0.0-0.2); Basophils % 0.9 % (0.0-0.8); Eosinophils # 0.7 10*3/uL (0.0-0.87); Eosinophils % 5.7 % (0.00-10.9); Hematocrit 39.8 VOL% (42.0-52.0); Hemoglobin 13.6 GM/DL (14.0-18.0); Immature Granulocytes % 5.1 %; Immature Granulocytes Absolute 0.66 #; Lymphocytes # 1.9 10*3/uL (1.4-4.0); Lymphocytes % 15.1 % (21.2-54.2); Mean Corpuscular HGB Conc 34.2 GM/DL (32-36); Mean Corpuscular Hemoglobin 29 PG (27-34); Mean Corpuscular Volume 83.3 FL (87-102); Monocytes # 1.9 10*3/uL (0.11-0.8); Monocytes % 14.8 % (1.7-12.7); Neutrophils # 7.5 10*3/uL (1.4-7.4); Neutrophils % 58.4 % (38.7-73.9); Platelet Count 175 T/CUMM (130-400); Red Blood Count 4.78 MC/CUMM (3.8-5.5); Red Cell Distribution Width 13.7 % (9.3-17.3); White Blood Count 12.9 T/CUMM (4-12)
[2017-07-23 07:19] LABS: Hypochromasia Slight; Microcytosis 1+
[2017-07-23 07:50] LABS: Calcium 8.9 MG/DL (8.5-10.1); Magnesium 2.2 MG/DL (1.8-2.4); Osmolality,Calculated 275.8 MOS/KG (273-304)
[2017-07-23] MEDS: FERROUS SULFATE 325 MG TABLET PO SCH (08:50)
[2017-07-23] MEDS: DOCUSATE SODIUM 100 MG CAPSULE PO SCH (08:50)
[2017-07-23] MEDS: CHOLECALCIFEROL 1,000 UNIT TABLET PO SCH ×2 (08:51→22:15)
[2017-07-23] MEDS: AMIODARONE 200 MG TABLET PO SCH (08:51)
[2017-07-23] MEDS: OMEGA 3 ACID ETHYL ESTERS 1 GM CAPSULE PO SCH ×2 (08:51→22:04)
[2017-07-23] MEDS: MULTIVITAMIN (BEROCCA) TABLET PO SCH (08:51)
[2017-07-23] MEDS: MONTELUKAST 10 MG TABLET PO SCH (08:51)
[2017-07-23] MEDS: ASPIRIN EC 325 MG TABLET PO SCH (08:51)
[2017-07-23] MEDS: traMADol 50 MG TABLET PO SCH ×2 (08:51→22:04)
[2017-07-23] MEDS: PANTOPRAZOLE 40 MG TABLET PO SCH (08:52)
[2017-07-23] MEDS: SPIRONOLACTONE 25 MG TABLET PO SCH ×2 (08:52→22:06)
[2017-07-23] MEDS: CAPTOPRIL 12.5 MG TABLET PO SCH ×2 (08:52→22:05)
[2017-07-23] MEDS: CARVEDILOL 12.5 MG TABLET PO SCH ×2 (08:52→22:04)
[2017-07-23] MEDS: GABAPENTIN 400 MG CAPSULE PO SCH ×3 (08:52→22:05)
[2017-07-23] MEDS: CHLORHEXIDINE 0.12% ORAL RINSE 60 ML BOTTLE SWISH/SPIT SCH ×2 (11:41→22:10)
[2017-07-23] MEDS: oxyCODONE/ACETAMINOPHEN 5-325 MG TABLET PO PRN ×2 (12:45→19:27)
[2017-07-23] MEDS ORDERED: LEVOFLOXACIN INJ 500 MG in PREMIX 1 EACH IV SCH (14:30)
--- NOTE | 2017-07-23 19:41 | Cardiology Progress Note ---
Preet Redd Lesley, LIBRADO, am scribing for, and in the presence of, Alejo Gallagher MD 19:34. Assessment and Plan - Time spent with patient Time spent with patient: Greater than 30 minutes (Record review, assessment, documentation) (1) CAD (coronary artery disease) Status: Chronic Assessment and plan: SEE PLAN LISTED BELOW Current Visit: No Qualifiers: Coronary Disease-Associated Artery/Lesion type: [place] artery [place] vs. transplanted heart: [place] heart Associated angina: without angina Qualified Code(s): I25.10 - Atherosclerotic heart disease of [place] coronary artery without angina pectoris (2) Status post coronary artery bypass grafting Status: Chronic Assessment and plan: SEE PLAN LISTED BELOW Current Visit: Yes (3) Hypotension Status: Resolved Assessment and plan: SEE PLAN LISTED BELOW Current Visit: Yes (4) Ischemic cardiomyopathy Status: Chronic Assessment and plan: SEE PLAN LISTED BELOW Current Visit: Yes (5) Dyslipidemia Status: Chronic Assessment and plan: SEE PLAN LISTED BELOW Current Visit: Yes (6) Ventricular arrhythmia Status: Acute Assessment and plan: SEE PLAN LISTED BELOW Current Visit: Yes Cardiology - PN: Subj Interval 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 COCHRAN SUMMARY: Mr. Crews, 67WM, was admitted for elective CABG July 16, 2017. He had been having progressive dyspnea on exertion, with cardiomyopathy and no chest pain. The patient was not thought to have had an acute [place]. He underwent elective cardiac catheterization July 04, 2017 which revealed severe three- vessel CAD, EF 15%. Dr. Lugo performed CABG with FOX to LAD, SVG to OM. He tolerated the procedure well. JULY 23, 2017: POD #7. Monitoring the following stable, chronic conditions: CAD, ischemic cardiomyopathy, and ventricular arrythmia. Mr. Crews is sitting in bed today, awaiting discharge home. Blood pressure has improved and he has tolerated increase in beta jennifer and VINCENT-I. Sinus rhythm noted on telemetry strips without evidence of arrhythmia. We will continue amiodarone, and lifevest recommended prior discharge. Lab data: creatinine 1.2, BUN 24, K 4.0, mag 2.2, WBC 12.9, Hgb 13, Hct 39. The patient will follow up with Dr. Cochran in 3-4 weeks with EKG, BMP with mag, and CBC prior to appt. ROS: denies chest pain no acute distress IMPRESSION/PLAN: CAD - S/P CABG POD #7. Continue ASA, Crestor, Coreg. ICM -continue captopril, Aldactone. LVEF was 15% Nonsustained VTA - he was loaded with p.o. amiodarone. No recent recurrence. Suggest to stop amiodarone, was started on Levaquin. He will be discharged with a LifeVest. Increase beta-jennifer, if the arrhythmia becomes more frequent Fever, chills. Cultures pending. Antibiotics started. Repeat x-ray pending. Incisions dry Exam (Progress Note) - Constitutional Vitals: Period Temp Pulse Resp BP Sys/Mcgrath Pulse Ox Last 24 Hr 97 F-101.4 F 79-104 18-20 96-128/55-76 91-100 Exam: General: Appears well with no apparent distress. Pleasant and cooperative. Appears comfortable. HEENT: PERRL, normocephalic, atraumatic. Mucous membranes moist. No jaundice noted. Conjunctiva moist and clear, sclerae anicteric. Neck: No JVD, no thyromegaly or lymphadenopathy noted. No carotid bruit appreciated. Cardiac: Regular rate and rhythm. No murmur rub or gallop. PMI is nondisplaced. Lungs: Essentially clear bilaterally, no accessory muscle use to assist the respiratory pattern. Oxygen in use via nasal cannula. Abdomen: Soft, bowel sounds normoactive. Nontender and nondistended. No abdominal bruit or thrill noted. No masses noted. Musculoskeletal: No fluid collection. Decreased range of motion is noted. Surgical dressings intact to midsternum and left lower leg. Extremities: No clubbing, cyanosis noted. No edema noted. Upper extremity pulses 2+. Lower extremity pulses 2+. Capillary refill less than 3 seconds. Skin: Warm and dry. No unusual lesions or rashes. No skin breakdown appreciated. Neuro: Awake, alert and oriented 3. Moves all extremities well without hemiparesis or paralysis. No essential tremor is appreciated. Result/EKG - Labs CBC & BMP: 07/23/17 05:58 07/23/17 06:43 Lab Results: I have reviewed the past 24 hour labs Labs: Laboratory Results - last 24 hr 07/23/17 07/23/17 05:58 06:43 WBC 12.9 H RBC 4.78 Hgb 13.6 L Hct 39.8 L MCV 83.3 L MCH 29 MCHC 34.2 RDW 13.7 Plt Count 175 MPV 10.0 Neut % (Auto) 58.4 Lymph % (Auto) 15.1 L [place] % (Auto) 14.8 H Eos % (Auto) 5.7 Baso % (Auto) 0.9 H Neut # (Auto) 7.5 H Lymph # (Auto) 1.9 [place] # (Auto) 1.9 H Eos # (Auto) 0.7 Baso # (Auto) 0.1 Immature Gran % 5.1 Nucleated RBC % 0.0 Immature Gran # 0.66 Nucleated RBCs # 0.00 Immature Plt Fraction 0.0 Hypochromasia Slight Microcytosis 1+ Sodium 137 Potassium 4.0 Chloride 101 Carbon Dioxide 30 Anion Gap 10.0 BUN 24 H Creatinine 1.20 GFR Calculation 72 BUN/Creatinine Ratio 20.00 Glucose 87 Calculated Osmolality 275.8 Calcium 8.9 Magnesium 2.2 - EKG EKG results: interpreted by me, sinus rhythm Quality Measures - VTE Contraindication to Pharmacological VTE Prophylaxis: High Risk of Bleeding Specialty Discharge - Follow Up or Referrals Follow up with: Claudy Lugo MD [Physician] - 08/21/17 9:30 am Endy Cochran MD [Physician] - 08/13/17 1:50 pm (3-4 weeks. BMP, Mg, CBC, EKG) Aileen Redd Attila, MD, personally performed the services described in this documentation, ascribed by Elisabet Oviedo NP in my presence, and it is both accurate and complete [id number] .
[2017-07-23] MEDS: ZALEPLON 5 MG CAPSULE PO PRN (22:04)
[2017-07-23] MEDS: ROSUVASTATIN 20 MG TABLET PO SCH (22:05)
[2017-07-23] MEDS: tiZANidine 4 MG TABLET PO SCH (22:07)
[2017-07-23] MEDS: AMITRIPTYLINE 50 MG TABLET PO SCH (22:15)
[2017-07-24 05:20] LABS: Basophils # 0.1 10*3/uL (0.0-0.2); Basophils % 0.5 % (0.0-0.8); Eosinophils # 0.9 10*3/uL (0.0-0.87); Eosinophils % 6.4 % (0.00-10.9); Hematocrit 39.1 VOL% (42.0-52.0); Hemoglobin 13.3 GM/DL (14.0-18.0); Immature Granulocytes % 4.8 %; Immature Granulocytes Absolute 0.71 #; Lymphocytes # 1.9 10*3/uL (1.4-4.0); Lymphocytes % 12.7 % (21.2-54.2); Mean Corpuscular Hemoglobin 28 PG (27-34); Mean Corpuscular Volume 83.5 FL (87-102); Mean Platelet Volume 9.8 FL (9.6-12.0); Monocytes # 2.2 10*3/uL (0.11-0.8); Monocytes % 14.7 % (1.7-12.7); Neutrophils # 8.9 10*3/uL (1.4-7.4); Neutrophils % 60.9 % (38.7-73.9); Platelet Count 196 T/CUMM (130-400); Red Blood Count 4.68 MC/CUMM (3.8-5.5); Red Cell Distribution Width 13.6 % (9.3-17.3); White Blood Count 14.7 T/CUMM (4-12)
[2017-07-24 05:46] LABS: Eosinophils 4 % (0-10); Giant Platelets Few; Hypochromasia 1+; Lymphocytes 13 % (20-55); Microcytosis Slight; Nucleated Red Blood Cells 2 (0-5); Platelet Estimate Adequate; Segmented Neutrophils 75 % (50-85); Total Cells Counted 100
--- NOTE | 2017-07-24 06:22 | Cardiothoracic Progress Note ---
Cardiothoracic Subjective Interval history: Patient had a comfortable night. He really wants to go home. We held his discharge yesterday because of low-grade fever but he is afebrile now and has been started on Levaquin empirically. His chest x-ray is okay this morning I think we can let him go home and continue on oral Levaquin and see him in follow -up. Exam (Progress Note) - Constitutional Vitals: Period Temp Pulse Resp BP Sys/Mcgrath Pulse Ox Last 24 Hr 97.5 F-100.8 F 79-103 18-20 97-127/55-70 91-94 Result/EKG - Labs CBC & BMP: 07/24/17 03:52 07/23/17 06:43 Labs: Laboratory Results - last 24 hr 07/23/17 07/23/17 07/24/17 05:58 06:43 03:52 WBC 12.9 H 14.7 H RBC 4.78 4.68 Hgb 13.6 L 13.3 L Hct 39.8 L 39.1 L MCV 83.3 L 83.5 L MCH 29 28 MCHC 34.2 34.0 RDW 13.7 13.6 Plt Count 175 196 MPV 10.0 9.8 Neut % (Auto) 58.4 60.9 Lymph % (Auto) 15.1 L 12.7 L [place] % (Auto) 14.8 H 14.7 H Eos % (Auto) 5.7 6.4 Baso % (Auto) 0.9 H 0.5 Neut # (Auto) 7.5 H 8.9 H Lymph # (Auto) 1.9 1.9 [place] # (Auto) 1.9 H 2.2 H Eos # (Auto) 0.7 0.9 H Baso # (Auto) 0.1 0.1 Total Counted 100 Immature Gran % 5.1 4.8 Nucleated RBC % 0.0 0.0 Immature Gran # 0.66 0.71 Segmented Neutrophils 75 Lymphocytes 13 L Monocytes 8 Eosinophils 4 Nucleated RBCs 2 Nucleated RBCs # 0.00 0.00 Platelet Estimate Adequate Giant Platelets Few Immature Plt Fraction 0.0 0.0 Hypochromasia Slight 1+ Microcytosis 1+ Slight Sodium 137 Potassium 4.0 Chloride 101 Carbon Dioxide 30 Anion Gap 10.0 BUN 24 H Creatinine 1.20 GFR Calculation 72 BUN/Creatinine Ratio 20.00 Glucose 87 Calculated Osmolality 275.8 Calcium 8.9 Magnesium 2.2 Quality Measures - VTE Contraindication to Pharmacological VTE Prophylaxis: High Risk of Bleeding Specialty Discharge - Follow Up or Referrals Follow up with: Claudy Lugo MD [Physician] - 08/21/17 9:30 am Endy Cochran MD [Physician] - 08/13/17 1:50 pm (3-4 weeks. BMP, Mg, CBC, EKG)
[2017-07-24] MEDS: oxyCODONE/ACETAMINOPHEN 5-325 MG TABLET PO PRN (06:49)
--- NOTE | 2017-07-24 07:21 | Order Completion Report ---
See report scanned to EMR
--- NOTE | 2017-07-24 08:34 | XRay Report ---
XR chest 2V Date: 07/24/2017 4:00 AM History: Cough, fever Comparison: 07/22/2017 Technique: PA and lateral chest Findings: The heart is normal in size with prior median sternotomy. Stable right IJ CVP line. Persistent relative elevation of the right hemidiaphragm with interposition of the colon. There is increased fecal material in the colon. Residual atelectasis at the lung bases with small pleural effusions. Impression: Status post median sternotomy with no pneumothorax. Progressive elevation of the right hemidiaphragm with increased fecal material in colon consistent with constipation. Interposition of the colon on the right. Persistent atelectasis at the lung bases with small pleural effusions. PROCEDURE INTERPRETED AT [facility] DEPARTMENT OF RADIOLOGY Final Report Signed by: Dr. Minnie Lindsay
[2017-07-24] MEDS: OMEGA 3 ACID ETHYL ESTERS 1 GM CAPSULE PO SCH (08:43)
[2017-07-24] MEDS: CAPTOPRIL 12.5 MG TABLET PO SCH (08:44)
[2017-07-24] MEDS: CARVEDILOL 12.5 MG TABLET PO SCH (08:44)
[2017-07-24] MEDS: DOCUSATE SODIUM 100 MG CAPSULE PO SCH (08:44)
[2017-07-24] MEDS: GABAPENTIN 400 MG CAPSULE PO SCH (08:44)
[2017-07-24] MEDS: traMADol 50 MG TABLET PO SCH (08:44)
[2017-07-24] MEDS: MONTELUKAST 10 MG TABLET PO SCH (08:44)
[2017-07-24] MEDS: PANTOPRAZOLE 40 MG TABLET PO SCH (08:44)
[2017-07-24] MEDS: ASPIRIN EC 325 MG TABLET PO SCH (08:44)
[2017-07-24] MEDS: SPIRONOLACTONE 25 MG TABLET PO SCH (08:44)
[2017-07-24] MEDS: FERROUS SULFATE 325 MG TABLET PO SCH (08:44)
[2017-07-24] MEDS: CHLORHEXIDINE 0.12% ORAL RINSE 60 ML BOTTLE SWISH/SPIT SCH (08:45)
[2017-07-24] MEDS: CHOLECALCIFEROL 1,000 UNIT TABLET PO SCH (08:50)
[2017-07-24] MEDS: MULTIVITAMIN (BEROCCA) TABLET PO SCH (08:50)
--- NOTE | 2017-07-24 08:53 | Discharge Summary ---
Hospital Course - Hospital Course Hospital Course: History of present illness: Patient is a 67-year-old man who is a patient of Dr. Cochran 2. He has been followed with symptoms of congestive heart failure and cardiomyopathy. He underwent cardiac catheterization about 2 weeks prior to admission showing critical coronary disease and severe left ventricular dysfunction. He was advised to have bypass surgery and was admitted for that purpose. Past medical history review of systems social history and family history are documented in his admission note. Hospital course: Patient was taken to surgery and two-vessel grafting was performed with a internal mammary graft to the anterior descending coronary artery and a saphenous vein graft to the obtuse marginal coronary artery. Patient's postoperative course was relatively smooth and uncomplicated especially given his severe degree of preoperative left ventricular dysfunction. Patient was ready for discharge on postop day 7 and will return for follow-up in 1 month. He will be evaluated by Dr. Cochran in 3-4 months with echocardiography to determine left ventricular function and hopefully show some improvement at that time following his bypass surgery. Discharge medications are listed below. Addendum: Patient had fever yesterday and coughed up some yellowish colored sputum. Cultures have been sent and Levaquin has been started and we will watch him for 1 more day. This morning patient is afebrile and is ready to go home. We will send him home on Levaquin with instructions to call if he develops additional symptoms. His chest x-ray today looks clear. Specialty Discharge - Follow Up or Referrals Follow up with: Claudy Lugo MD [Physician] - 08/21/17 9:30 am Endy Cochran MD [Physician] - 08/13/17 1:50 pm (3-4 weeks. BMP, Mg, CBC, EKG) Discharge Plan - Discharge Data Disposition: Disch To Home/Self Care - Discharge Medications New Amiodarone Tab [Cordarone Tab] 200 mg PO BID #60 tablet Continue Zolpidem Tartrate [Ambien] 10 mg PO BEDTIME Tizanidine HCl [Zanaflex] 2 mg PO BEDTIME Spironolactone [Aldactone] 12.5 mg PO DAILY [place]-3/Dha/Epa/Fish Oil [Fish Oil 1,000 mg Softgel] 2 each PO BID Montelukast Tab [Singulair Tab] 10 mg PO DAILY Lutein 40 mg PO DAILY Garlic 2,000 mg PO BID Gabapentin Cap/Tab [Neurontin Cap/Tab] 400 mg PO TID Fluticasone/Vilanterol [Breo Ellipta 100-25 Mcg INH] 1 puff INH DAILY PRN PRN Reason: Congestion Carvedilol [Coreg] 50 mg PO BID Vitamin B Complex 1 capsule PO DAILY Cholecalciferol (Vitamin D3) [Vitamin D3] 1 capsule PO BID Calcium Carb/Mag Ox/Zinc Sulf [Sdodash-Jjoyuyird-Esmz Tablet] 1 tablet PO BID amLODIPine [Norvasc] 5 mg PO DAILY Sacubitril/Valsartan [Entresto 24 mg-26 mg Tablet] 0.5 tablet PO BEDTIME Leg Cramps 1 caplet PO DIRECTED PRN PRN Reason: Leg Cramps Acetaminophen Tab [Tylenol Tab] 325 mg PO BID PRN PRN Reason: Pain Tramadol HCl [Tramadol Tab] 50 mg PO BID Saw [place] Fruit [Saw [place]] 2 mg PO BID Glucosamine/Chondroitin Sulf A [Glucosamine-Chondroitin Cap] 1 each PO BID Furosemide Tab [Lasix Tab] 40 mg PO DAILY Amitriptyline HCl 50 mg PO BEDTIME Aspirin/Calcium Carbonate/Mag [Aspirin Buffered 325 mg Tab] 325 mg PO DAILY - Follow Up or Referral Follow Up: Claudy Lugo MD [Physician] - 08/21/17 9:30 am Endy Cochran MD [Physician] - 08/13/17 1:50 pm (3-4 weeks. BMP, Mg, CBC, EKG) - Forms/Instructions Instructions: Amiodarone (By mouth), Heart Healthy Diet (GEN), Coronary Artery Bypass Graft, Marine Engineering Consultant (GEN), Sternal Precautions (GEN) Additional Discharge Instructions: Additional medication: Levaquin 500 mg p.o. daily. Exam - Constitutional Vitals: Period Temp Pulse Resp BP Sys/[place]grath Pulse Ox Last 24 Hr 96.9 F-100.8 F 80-103 18-20 97-131/56-70 90-94 Discharge Results Procedures and tests throughout hospitalization: Pending Orders 07/15/17 09:31 Fresh Frozen Plasma Routine Red Blood Cells Leuko Red Routine Single Donor Platelets Routine Type and Screen Routine 07/23/17 15:30 Sputum Culture and Gram Stain Routine Labs on day of discharge: Labs from last 24 hours 07/24/17 03:52 WBC 14.7 H RBC 4.68 Hgb 13.3 L Hct 39.1 L MCV 83.5 L MCH 28 MCHC 34.0 RDW 13.6 Plt Count 196 MPV 9.8 Neut % (Auto) 60.9 Lymph % (Auto) 12.7 L [place] % (Auto) 14.7 H Eos % (Auto) 6.4 Baso % (Auto) 0.5 Neut # (Auto) 8.9 H Lymph # (Auto) 1.9 [place] # (Auto) 2.2 H Eos # (Auto) 0.9 H Baso # (Auto) 0.1 Total Counted 100 Immature Gran % 4.8 Nucleated RBC % 0.0 Immature Gran # 0.71 Segmented Neutrophils 75 Lymphocytes 13 L Monocytes 8 Eosinophils 4 Nucleated RBCs 2 Nucleated RBCs # 0.00 Platelet Estimate Adequate Giant Platelets Few Immature Plt Fraction 0.0 Hypochromasia 1+ Microcytosis Slight DS: Provider Date of admission: 07/15/17 09:03 Primary care physician: Mauro Buchanan DO Attending physician on admission: Claudy Lugo MD Consults: 07/17/17 14:15 Consult to Cardiac Rehabilitation [CONS] Routine Reason for Cardiac Rehabilitation: Other Consult Comment: Post CABG/heart surgery Consult to Diabetes Center, Educator [CONS] Routine Reason for Assistant Manager [employer]: Diabetes Education Initial Insulin Education Consult Comment: insulin education Consult to Dietitian [CONS] Routine Reason for Dietitian: Dietary Consult Consult Comment: Cardiac, low salt, low cholesterol diet Consult to Physical Therapy [CONS] Routine Reason for Physical Therapy: Other Consult Comment: CV Rehab 07/22/17 14:37 Consult to Case Mgmt/Social Srvs [CONS] Routine Reason for Case Mgmt/Social Srvs: Discharge Planning Consult Comment: set up pt for [facility] - see Dr. Cochran's message to caregiver. 07/23/17 08:39 Consult to Case Mgmt/Social Srvs [CONS] Routine Reason for Case Mgmt/Social Srvs: Home Health Consult Comment: home health s/p CABG, please have them remove leg brian in one week Discharging clinician: Claudy Lugo MD Expected date of discharge: 07/24/17
[2017-07-24] MEDS ORDERED: LEVOFLOXACIN 500 MG TABLET PO SCH (09:00)
[2017-07-24] MEDS ORDERED: AMIODARONE 200 MG TABLET PO SCH (09:00)
[2017-07-24 12:13] VITALS: BP 115/66
== END 2017-07-24 15:13 | disposition home or self-care (01) | DRG 236 ==
LOC: N.TELEN 09:03 → N.CVR 07-16 08:04 → N.TELES 07-17 14:00